=== PATIENT | female | born 1970 | race Caucasian/White ===

== ENCOUNTER 2020-03-02 14:21 | Outpatient (REF) | payer MEDICAID, SELFPAY ==
[2020-03-02 21:10] LABS: Abs Immature Grans 0.01 k/cumm (0.0-0.09); Absolute Basophil Count 0.03 k/cumm (0.0-0.2); Absolute Lymphocyte Count 1.54 k/cumm (1.2-3.4); Absolute Monocyte Count 0.62 k/cumm (0.11-0.7); Absolute Neutrophil Count 3.27 k/cumm (1.2-6.7); Basophils % 0.5; Eosinophils % 1.8; HCT 38.3 % (36.0-46.0); HGB 12.9 g/dL (12.0-15.5); Immature Grans % 0.2 %; Lymphocytes % 27.6; Mean Corp. HGB Concentration 33.7 g/dL (32.0-36.0); Mean Corpuscular Hemoglobin 28.5 pg (27.0-33.0); Mean Corpuscular Volume 84.5 fL (80-95); Monocytes % 11.1; Neutrophils % 58.8; Platelet Count 108 x1000/uL (130-400); RBC 4.53 m/cumm (4.00-5.20); RBC Distribution Width 13.7 % (11.7-14.6); White Blood Cell Count 5.57 k/cumm (4.4-10.8)
== END 2020-03-02 14:41 ==
LOC: NCHCN 14:21
PROVIDERS: Visit Provider Physician Assistant
DX: C85.80 Other specified types of non-Hodgkin lymphoma, unspecified site (principal); R59.1 Generalized enlarged lymph nodes
CPT/HCPCS: 85025

== ENCOUNTER 2020-03-05 03:51 | Outpatient (CLI) | payer MEDICAID, SELFPAY ==
--- NOTE | 2020-03-05 | DI.RAD_ITS ---
EXAM: XR HIP LT COMPLETE AP PELVIS CLINICAL HISTORY: LT HIP JOINT PAIN, M25.552 TECHNIQUE: COMPARISON: No exams were available for comparison FINDINGS: Three views were obtained. There are slight degenerative changes of both hips. No other significant bony or soft tissue abnormality seen. IMPRESSION:
--- NOTE | 2020-03-05 | DI.RAD_ITS ---
EXAM: XR FINGER RT MIDDLE CLINICAL HISTORY: RT FINGER PAIN, M79.644 TECHNIQUE: COMPARISON: No exams were available for comparison FINDINGS: Three views were obtained. Patient reportedly has a history of fracture approximately 4 weeks ago. There appears to be healing fracture of the base of the middle phalanx of the middle finger with some disruption/displacement of the articular surface of the bone. No prior films available for comparis on. No additional fracture seen. IMPRESSION:
== END 2020-03-05 04:11 ==
PROVIDERS: PCP Physician Assistant; Visit Provider Physician Assistant
DX: M79.644 Pain in right finger(s) (principal); M25.552 Pain in left hip
CPT/HCPCS: 73140; 73502

== ENCOUNTER 2020-03-16 11:46 | Outpatient (CLI) | payer MEDICAID, SELFPAY ==
--- NOTE | 2020-03-16 11:40 | DI.RAD_ITS ---
EXAM: XR FINGER RT MIDDLE INDICATION: fracture of middle phalanx. COMPARISON: CR XR FINGER RT MIDDLE from 03/05/2020 TECHNIQUE: 2D digital imaging was performed. FINDINGS: There has been no change in the alignment of the intra-articular fracture at the base of the middle p halanx of the middle finger. Soft tissue swelling remains present. DATA REPOSITORY: RADIATION DOSE DELIVERED:
== END 2020-03-16 12:06 ==
PROVIDERS: PCP Physician Assistant; Referring Provider Physician Assistant; Visit Provider Physician Assistant
DX: S62.652A Nondisplaced fracture of middle phalanx of right middle finger, initial encounter for closed fracture (principal)
CPT/HCPCS: 73140

== ENCOUNTER 2020-03-26 10:12 | Outpatient (REF) | payer MEDICAID, SELFPAY ==
[2020-03-26 16:59] LABS: HCT 38.4 % (36.0-46.0); HGB 12.4 g/dL (11.2-15.7); MCH 27.5 pg (27.0-33.0); MCHC 32.3 % (32.0-36.0); MCV 85.1 fL (80-95); MPV 10.4 fL (8.0-11.0); RBC 4.51 10^6/uL (3.93-5.22); RDW 13.2 % (11.7-14.6); RDW-SD 40.3 fL; WBC 4.61 10^3/uL (4.4-10.8)
[2020-03-26 18:07] LABS: Platelet Count 95 10^3/uL (130-400)
== END 2020-03-26 10:32 ==
LOC: NCHCN 10:12
PROVIDERS: PCP Physician Assistant; Visit Provider Physician Assistant
DX: R59.1 Generalized enlarged lymph nodes (principal)
CPT/HCPCS: 85027

== ENCOUNTER 2020-05-03 12:47 | Outpatient (REF) | payer MEDICAID, SELFPAY ==
[2020-05-03 18:54] LABS: HCT 35.3 % (36.0-46.0); HGB 11.1 g/dL (11.2-15.7); MCH 26.8 pg (27.0-33.0); MCHC 31.4 % (32.0-36.0); MCV 85.3 fL (80-95); MPV 10.9 fL (8.0-11.0); Platelet Count 113 10^3/uL (130-400); RBC 4.14 10^6/uL (3.93-5.22); RDW 14.1 % (11.7-14.6); RDW-SD 43.8 fL; WBC 4.49 10^3/uL (4.4-10.8)
[2020-05-03 19:50] LABS: Anion Gap 9.1 mmol/L (3-11); BUN 8 mg/dL (7-18); CO2 26.9 mmol/L (21.0-32.0); CREATININE 0.69 mg/dL (0.55-1.02); Calcium 8.5 mg/dL (8.5-10.1); Calculated LDL 137 mg/dL (<100); Chloride 104 mmol/L (98-107); Cholesterol 179 mg/dL (<200); Glucose 96 mg/dL (74-106); HDL Cholesterol 17 mg/dL (40-60); Potassium 4.1 mmol/L (3.5-5.1); Sodium 140 mmol/L (136-145); Triglyceride 126 mg/dL (<150)
== END 2020-05-03 13:07 ==
LOC: NCHCN 12:47
PROVIDERS: PCP Physician Assistant; Visit Provider Physician Assistant
DX: E11.9 Type 2 diabetes mellitus without complications (principal); D69.6 Thrombocytopenia, unspecified
CPT/HCPCS: 80048; 80061; 85027; 83036

== ENCOUNTER 2020-05-12 01:53 | Outpatient (CLI) | payer MEDICAID, SELFPAY ==
[2020-05-12 11:53] LABS: Abs Immature Grans 0.01 10^3/uL (0.0-0.06); Absolute Basophil Count 0.03 10^3/uL (0.0-0.2); Absolute Eosinophil Count 0.07 10^3/uL (0.0-0.7); Absolute Lymphocyte Count 1.71 10^3/uL (1.2-3.4); Absolute Monocyte Count 0.43 10^3/uL (0.1-0.8); Absolute Neutrophil Count 2.45 10^3/uL (1.2-6.7); Basophils % 0.6; Eosinophils % 1.5; HCT 34.3 % (36.0-46.0); HGB 10.9 g/dL (11.2-15.7); Immature Grans % 0.2; Lymphocytes % 36.4; MCH 26.8 pg (27.0-33.0); MCHC 31.8 % (32.0-36.0); MCV 84.3 fL (80-95); MPV 10.5 fL (8.0-11.0); Monocytes % 9.1; Neutrophils % 52.2; Nucleated RBC 0 %; RBC 4.07 10^6/uL (3.93-5.22); RDW 14.6 % (11.7-14.6); RDW-SD 44.8 fL
[2020-05-12 12:06] LABS: ALT 14 U/L (14-59); AST 36 U/L (15-37); Albumin 3.1 g/dL (3.4-5.0); Alkaline Phosphatase 142 U/L (46-116); BUN 14 mg/dL (7-18); Bilirubin, Total 0.4 mg/dL (0.2-1.0); CREATININE 0.92 mg/dL (0.55-1.02); Calcium 8.8 mg/dL (8.5-10.1); Chloride 103 mmol/L (98-107); Glucose 156 mg/dL (74-106); LDH 576 U/L (81-234); Potassium 3.9 mmol/L (3.5-5.1); Sodium 138 mmol/L (136-145); Total Protein 6.8 g/dL (6.4-8.2)
[2020-05-12 12:12] LABS: Diff Comment PLT Morph Reviewed; Hypochromasia 1+; Platelet Count 93 10^3/uL (130-400); Polychromasia Present
== END 2020-05-12 02:13 ==
PROVIDERS: PCP Physician Assistant; Visit Provider Internal Medicine Hematology & Oncology
DX: C85.98 Non-Hodgkin lymphoma, unspecified, lymph nodes of multiple sites (principal)
CPT/HCPCS: 36415; 80053; 83615; 85025

== ENCOUNTER 2020-05-14 16:47 | Emergency (ER) | payer MEDICAID, SELFPAY ==
[2020-05-14 16:57] VITALS: BP 131/73; PULSE 89; RESP 16; TEMP 36.5; O2SAT 98
--- NOTE | 2020-05-14 17:00 | DI.CT_ITS ---
EXAM: CT ABDOMEN PELVIS W CLINICAL HISTORY: abdomen pain. TECHNIQUE: Imaging Protocol: Axial computed tomography images with coronal and sagittal reformatted images were created and reviewed CONTRAST MATERIAL: Intravenous: Omnipaque 350 Contrast volume:100 ml Oral: no COMPARISON: No exams were available for comparison FINDINGS: There is marked splenic enlargement, with cephalocaudad dimension of 25 cm . The liver is enlarged a t 22 cm. There is mild fatty infiltration. The patient is status post cholecystectomy. No focal li conchis lesions are seen. The kidneys and adrenals are unremarkable. There is mild fatty atrophy of the pancreas. There are numerous enlarged lymph nodes seen in the para-aortic region which are confluen t. There is a retro aortic left renal vein. There also are enlarged inguinal lymph nodes. There is a large right external iliac lymph node measuring 4.7 cm. There is bulky adenopathy at the celiac a xis. A small cardiophrenic node is seen. The bowel is unremarkable. The uterus, bladder and ovarie s are unremarkable. The lung bases are suboptimally evaluated due to mild motion and atelectasis. T here are nodules seen in the inferior right middle lobe, the larger measuring 1.5 cm, as well as a 5 millimeter nodule in the left lower lobe. Degenerative changes are seen in the spine. No lytic or b lastic lesions or fractures are seen. Impression: Markedly enlarged spleen as well as bulky adenopathy, highly suspicious for lymphoma. RADIATION DOSE DELIVERED: 1,371.73mGy.cm Total DLP DATA REPOSITORY: All CT scans at this facility are submitted to the National Radiology Data Registry (NRDR) Dose Index Registry (DIR) with the [employer] (ACR). RADIATION OPTIMIZATION: All CT scans at this facility use at least one of these dose optimization te chniques: automated exposure control; mA and/or kV adjustment per patient size (includes targeted exa ms where dose is matched to clinical indication); or iterative reconstruction.
[2020-05-14 17:20] LABS: Abs Immature Grans 0.03 10^3/uL (0.0-0.06); Absolute Basophil Count 0.02 10^3/uL (0.0-0.2); Absolute Eosinophil Count 0.15 10^3/uL (0.0-0.7); Absolute Lymphocyte Count 2.07 10^3/uL (1.2-3.4); Absolute Monocyte Count 0.63 10^3/uL (0.1-0.8); Absolute Neutrophil Count 2.36 10^3/uL (1.2-6.7); Basophils % 0.4; Eosinophils % 2.9; HCT 35.7 % (36.0-46.0); HGB 11.3 g/dL (11.2-15.7); Immature Grans % 0.6; Lymphocytes % 39.4; MCH 26.3 pg (27.0-33.0); MCHC 31.7 % (32.0-36.0); MCV 83.2 fL (80-95); MPV 9.8 fL (8.0-11.0); Neutrophils % 44.7; Nucleated RBC 0 %; Platelet Count 101 10^3/uL (130-400); RBC 4.29 10^6/uL (3.93-5.22); RDW 14.9 % (11.7-14.6); RDW-SD 45.1 fL; WBC 5.26 10^3/uL (4.4-10.8)
[2020-05-14 17:33] LABS: ALT 15 U/L (14-59); AST 34 U/L (15-37); Albumin 3.4 g/dL (3.4-5.0); Alkaline Phosphatase 115 U/L (46-116); BUN 9 mg/dL (7-18); Bilirubin, Total 0.7 mg/dL (0.2-1.0); CREATININE 0.89 mg/dL (0.55-1.02); Calcium 8.9 mg/dL (8.5-10.1); Chloride 102 mmol/L (98-107); Glucose 116 mg/dL (74-106); Lipase 30 U/L (73-393); Potassium 3.7 mmol/L (3.5-5.1); Sodium 139 mmol/L (136-145); Total Protein 7.2 g/dL (6.4-8.2)
--- NOTE | 2020-05-14 17:38 | ED.GENADUL_ITS ---
Discharge Plan Disposition Patient Disposition: HOME Condition: Fair Discharge Details Clinical Impression: Abdominal pain in female Primary Care Provider: David West ED Provider: Mishel Hassan Home Meds and New Rx's Prescriptions: Continued clonazepam 0.5 mg tablet 0.5 mg PO DAILY RF: 0 ibuprofen 800 mg tablet 800 mg PO Q8H RF: 0 metformin 500 mg tablet 500 mg PO BID RF: 0 Discharge Instructions Instructions: Abdominal Pain (ED) Additional Instructions: Drink at least 6 to 8 glasses of water daily to stay well-hydrated Continue usual medications as previously prescribed Keep all follow-up appointments as previously scheduled return here sooner for new or worsening symptoms Referrals: David West [Primary Care Provider] - (Keep scheduled follow-up appointments) Medical Decision Making Patient sent in for evaluation by oncology for abdominal pain in setting of splenomegaly. Routine abdominal labs and CT of the abdomen pelvis obtained there is no acute abdominal pelvic pathology identified other than findings of lymphoma with scattered 6 mm pulmonary nodules requiring follow-up in 3 months. Her labs are reviewed and unremarkable. She declines any medication for pain. She is being discharged to follow-up with outpatient team as previously scheduled Medical Records Medical records reviewed: Yes I reviewed the patient's medical records. Lab Data Lab results reviewed: Yes I reviewed the patient's lab results. Lab results narrative: Laboratory Tests Range/Units 05/14/20 05/14/20 17:15 17:15 WBC (4.4-10.8) 10^3/uL 5.26 RBC (3.93-5.22) 10^6/uL 4.29 Hgb (11.2-15.7) g/dL 11.3 Hct (36.0-46.0) % 35.7 L MCV (80-95) fL 83.2 MCH (27.0-33.0) pg 26.3 L MCHC (32.0-36.0) % 31.7 L RDW (11.7-14.6) % 14.9 H Plt Count (130-400) 10^3/uL 101 L MPV (8.0-11.0) fL 9.8 Immature Gran % 0.6 Neutrophils % 44.7 Lymphocytes % 39.4 Monocytes % 12.0 Eosinophils % 2.9 Basophils % 0.4 Nucleated RBC % % 0 Absolute Neutrophils (1.2-6.7) 10^3/uL 2.36 Absolute Lymphocytes (1.2-3.4) 10^3/uL 2.07 Absolute Monocytes (0.1-0.8) 10^3/uL 0.63 Absolute Eosinophils (0.0-0.7) 10^3/uL 0.15 Absolute Basophils (0.0-0.2) 10^3/uL 0.02 Sodium (136-145) mmol/L 139 Potassium (3.5-5.1) mmol/L 3.7 Chloride (98-107) mmol/L 102 Carbon Dioxide (21.0-32.0) mmol/L 24.0 Anion Gap (3-11) mmol/L 13.0 H BUN (7-18) mg/dL 9 Creatinine (0.55-1.02) mg/dL 0.89 Estimated GFR/1.73 m2 (mL/min/1.73m2) >= 60.00 Glucose (74-106) mg/dL 116 H Calcium (8.5-10.1) mg/dL 8.9 Total Bilirubin (0.2-1.0) mg/dL 0.7 AST (15-37) U/L 34 ALT (14-59) U/L 15 Alkaline Phosphatase (46-116) U/L 115 Total Protein (6.4-8.2) g/dL 7.2 Albumin (3.4-5.0) g/dL 3.4 Lipase (73-393) U/L 30 Labs: Laboratory Results - last 24 hr 05/14/20 05/14/20 05/14/20 17:15 17:15 17:30 WBC 5.26 RBC 4.29 Hgb 11.3 Hct 35.7 L MCV 83.2 MCH 26.3 L MCHC 31.7 L RDW 14.9 H Plt Count 101 L MPV 9.8 Immature Gran % 0.6 Neutrophils % 44.7 Lymphocytes % 39.4 Monocytes % 12.0 Eosinophils % 2.9 Basophils % 0.4 Nucleated RBC % 0 Absolute Neutrophils 2.36 Absolute Lymphocytes 2.07 Absolute Monocytes 0.63 Absolute Eosinophils 0.15 Absolute Basophils 0.02 Sodium 139 Potassium 3.7 Chloride 102 Carbon Dioxide 24.0 Anion Gap 13.0 H BUN 9 Creatinine 0.89 Estimated GFR/1.73 m2 >= 60.00 Glucose 116 H Calcium 8.9 Total Bilirubin 0.7 AST 34 ALT 15 Alkaline Phosphatase 115 Total Protein 7.2 Albumin 3.4 Lipase 30 Urine Color Yellow Urine Clarity Sl cloudy Urine pH 6.0 Ur Specific [place] 1.025 Urine Protein 100 H Urine Ketones Trace H Urine Blood Negative Urine Nitrite Negative Urine Bilirubin Small H Urine Urobilinogen 0.2 Ur Leukocyte Esterase Negative Urine RBC 0-2 Urine WBC 3-5 Ur Epithelial Cells Many Urine Crystals Many calcium oxalate Urine Bacteria Moderate Urine Casts Negative Urine Mucus Moderate Ur Culture Indicated? No/sq. contamination Urine Glucose Negative HPI General Mode of arrival: ambulatory . Date/Time Provider Initiated Documentation: 05/14/20 16:59 . Limitations to Documentation: no limitations . Information obtained by: patient . HPI Narrative: Patient sent in by oncology for evaluation of abdominal pain in the setting of lymphoma with known splenomegaly. No fevers nausea or vomiting. Has had pain for 2 weeks. States pain is somewhat improved at this time. She declines any pain medication Related Data Home Medications Medication Instructions Recorded Confirmed clonazepam 0.5 mg tablet 0.5 mg PO DAILY 03/15/20 05/14/20 ibuprofen 800 mg tablet 800 mg PO Q8H 03/15/20 05/14/20 metformin 500 mg tablet 500 mg PO BID 03/15/20 05/14/20 Allergies Allergy/AdvReac Type Severity Reaction Status Date / Time latex Allergy Unverified 05/14/20 17:02 Penicillins Allergy Verified 05/14/20 17:02 General Stated Complaint: Abd Prob SANDI: 2 Review of Systems All systems reviewed & are unremarkable except as noted in HPI and below ENT Ears, Nose, Mouth, and Throat: Denies dizziness and Denies odynophagia Gastrointestinal Gastrointestinal: Reports abdominal pain, Denies melena, Denies heartburn, Denies nausea and Denies odynophagia Genitourinary Genitourinary: Denies dysuria, Denies pelvic pain and Denies vaginal discharge Integumentary/Breasts Skin/Breast: Denies lesions and Denies rash Neurologic Neurologic: Denies dizziness [facility] Medical History (Updated 05/14/20 @ 18:30 by Mishel Hassan NP) Diabetes Fracture of middle phalanx of right middle finger (~02/01/20) Non-Hodgkin lymphoma Social History Smoking/Tobacco Use Status: Former Tobacco Use Alcohol Intake: never Drug use: Daily Substance use type: marijuana Exam Const General: cooperative, comfortable and ill appearing chronically Nutritional Appearance: obese Orientation: alert, awake and oriented x3 HENMT Head: normal to inspection, normocephalic and atraumatic Mouth: oral mucosae normal Resp Effort & Inspection: normal respiratory effort Auscultation: clear to auscultation bilaterally Cardio Rate: regular rate Rhythm: regular rhythm GI Inspection: obesity Palpation: soft Skin Lesions: no lesions Rashes: no rashes Neuro General: patient alert, patient awake and patient oriented x3 Cognition: normal cognition Speech: speech normal Course Vital Signs Vital signs: Vital Signs Pulse 89 05/14/20 16:57 Respiratory Rate 16 05/14/20 16:57 Blood Pressure 131/73 05/14/20 16:57 Pulse Oximetry 98 05/14/20 16:57 Pulse 89 05/14/20 16:57 Respiratory Rate 16 05/14/20 16:57 Respiratory Effort Non-Labored 05/14/20 16:57 Blood Pressure 131/73 05/14/20 16:57 Blood Pressure Position Sitting 05/14/20 16:57 Pulse Oximetry 98 05/14/20 16:57 Oxygen Delivery Method Room Air 05/14/20 16:57 Oxygen Flow Rate 0 05/14/20 16:57 Pain Level 10 05/14/20 16:57 Lab/Test Results Lab/Test Results: Laboratory Tests Range/Units 05/14/20 17:15 WBC (4.4-10.8) 10^3/uL 5.26 RBC (3.93-5.22) 10^6/uL 4.29 Hgb (11.2-15.7) g/dL 11.3 Hct (36.0-46.0) % 35.7 L MCV (80-95) fL 83.2 MCH (27.0-33.0) pg 26.3 L MCHC (32.0-36.0) % 31.7 L RDW (11.7-14.6) % 14.9 H Plt Count (130-400) 10^3/uL 101 L MPV (8.0-11.0) fL 9.8 Immature Gran % 0.6 Neutrophils % 44.7 Lymphocytes % 39.4 Monocytes % 12.0 Eosinophils % 2.9 Basophils % 0.4 Nucleated RBC % % 0 Absolute Neutrophils (1.2-6.7) 10^3/uL 2.36 Absolute Lymphocytes (1.2-3.4) 10^3/uL 2.07 Absolute Monocytes (0.1-0.8) 10^3/uL 0.63 Absolute Eosinophils (0.0-0.7) 10^3/uL 0.15 Absolute Basophils (0.0-0.2) 10^3/uL 0.02
[2020-05-14 17:43] LABS: Bilirubin Small (Negative); Blood Negative (Negative); Clarity Sl Cloudy (Clear); Glucose Negative (Negative); Ketones Trace mg/dL (Negative); Leukocyte Esterase Negative (Negative); Nitrite Negative (Negative); Specific Gravity 1.025 (1.005-1.025); Urobilinogen 0.2 EU/dL (Up TO 0.2)
[2020-05-14 17:53] LABS: Bacteria Moderate HPF (Negative); Crystals Many Calcium Oxalate HPF (Negative); Epithelial Cells Many HPF (Negative); Mucus Moderate (Negative); RBC 0-2 HPF (0-2)
[2020-05-14 17:54] LABS: C & S Indicated? No/Sq. Contamination; Casts Negative LPF (Negative)
[2020-05-14] MEDS: Omnipaque 350 MG/ML 100 ML BTL IJ (18:11)
[2020-05-14] MEDS: Normal Saline Flush 10 ML SYR IVP (18:12)
[2020-05-14] MEDS: Normal Saline - Diluent 50 ML VIAL IV (18:13)
--- NOTE | 2020-05-14 18:24 | DI.VRAD_ITS ---
PROCEDURE INFORMATION: Exam: CT Abdomen And Pelvis With Contrast Exam date and time: 05/14/2020 5:05 PM Age: 50 years old Clinical indication: Other: Abd pain TECHNIQUE: Imaging protocol: Computed tomography of the abdomen and pelvis with intravenous contrast. Contrast material: OMNIPAQUE 350; Contrast volume: 100 ml; Contrast route: INTRAVENOUS (IV); COMPARISON: CR XR HIP LT COMPLETE AP PELVIS 03/05/2020 10:57 AM FINDINGS: Lungs: There is linear atelectasis in the right lung base. Scattered sub 6 mm pulmonary nodules are appreciated. For example, a 5 mm nodule is seen in the left lower lobe on image 63 series 5. As another example, a 3 mm nodule is seen in the right lower lobe on image 103 series 5. Liver: There is marked enlargement of the liver. There is a diffuse decrease in hepatic parenchymal density, consistent with fatty infiltration. Gallbladder and bile ducts: Patient status post cholecystectomy. No biliary ductal dilation. Pancreas: There is diffuse, benign fatty infiltration of the pancreas. Spleen: There is marked nonspecific splenomegaly. Adrenals: Normal. No mass. Kidneys and ureters: Normal. No hydronephrosis. Stomach and bowel: Unremarkable. No obstruction. No mucosal thickening. Appendix: No evidence of appendicitis. Intraperitoneal space: There is trace free fluid in the pelvis. Vasculature: The vasculature demonstrates diffuse mild atherosclerotic calcification. Lymph nodes: There is bulky and confluent periportal adenopathy. There is bulky and confluent retroperitoneal adenopathy. There is bulky and enlarged bilateral iliac chain, pelvic sidewall, and inguinal adenopathy. There is right cardiophrenic angle adenopathy. Urinary bladder: Unremarkable as visualized. Reproductive: Unremarkable as visualized. Bones/joints: No acute skeletal pathology. Mild multilevel degenerative changes of the spine, as manifested by multilevel anterior osteophytes and multilevel decrease in intervertebral disc space. Soft tissues: There is a fat-containing umbilical hernia. IMPRESSION: 1. Findings are most in favor with lymphoma. 2. Scattered sub 6 mm pulmonary nodules are appreciated. Close follow-up in 3 months is recommended. 3. No acute abdominopelvic pathology is otherwise identified. Dictated and Authenticated by: Shaq Centeno MD. Ordering:YUMIKO Florentino MD
[2020-05-14 18:31] VITALS: BP 104/62; PULSE 79; RESP 18; TEMP 36.4; O2SAT 96
[2020-05-14 18:35] VITALS: BP 104/62; PULSE 79; RESP 18; TEMP 36.4; O2SAT 96
== END 2020-05-14 18:35 | disposition home or self-care (01) ==
PROVIDERS: Emergency Provider Nurse Practitioner Acute Care; PCP Physician Assistant
DX: R10.12 Left upper quadrant pain (principal); R16.2 Hepatomegaly with splenomegaly, not elsewhere classified; C85.90 Non-Hodgkin lymphoma, unspecified, unspecified site; E11.9 Type 2 diabetes mellitus without complications; Z79.84 Long term (current) use of oral hypoglycemic drugs
CPT/HCPCS: 36415; 80053; 83690; 99285; 74177; 81003; 81015; 85025; 99284; J3490

== ENCOUNTER 2020-05-20 02:30 | Outpatient (CLI) | payer MEDICAID, SELFPAY ==
--- NOTE | 2020-05-20 07:31 | DI.US_ITS ---
APPROVED REPORT EXAM: Comprehensive 2D, Doppler, and color-flow Echocardiogram Patient Location: Out-Patient Wheel Worker: Ally Thao RDCS (AE) Indications: Follicular lymphoma of lymph nodes Other Information Study Quality: Fair Conclusion Left Ventricle : The left ventricle is normal size. The left ventricular systolic function is normal. The left ventricular ejection fraction is within the normal range. There is normal left ventricular wall thickness. There is normal LV segmental wall motion. The left ventricular diastolic function is normal. LVEF is 53%. Average Global longitudinal strain is -15%. Right Ventricle : Right ventricle is not well visualized. Right ventricular systolic function could n ot be assessed. The RVSP is 30.3 mmHg. Atria : The left atrium size is normal. Right atrium is not well visualized. Valves: There are no hemodynamically significant valvular lesions. Great Vessels : The aortic root is normal in size. The ascending aorta is normal in size. Aortic arch is normal in caliber. IVC is normal in size and collapses >50% with inspiration. Please see remainder of study for further details. Wall motion Left Ventricle The left ventricle is normal size. The left ventricular systolic function is normal. The left ventric ular ejection fraction is within the normal range. There is normal left ventricular wall thickness. T here is normal LV segmental wall motion. The left ventricular diastolic function is normal. There is no ventricular septal defect visualized. LVEF is 53%. Average Global longitudinal strain is -15%. Right Ventricle Right ventricle is not well visualized. Right ventricular systolic function could not be assessed. Th e RVSP is 30.3 mmHg. Atria The left atrium size is normal. Right atrium is not well visualized. The interatrial septum is intact with no evidence for an atrial septal defect. Aortic Valve The aortic valve is normal in structure. Aortic valve is trileaflet. There is no aortic valvular sten osis. No aortic regurgitation is present. Mitral Valve The mitral valve is normal in structure. No evidence of mitral valve stenosis. Trace to mild mitral r egurgitation. Tricuspid Valve The tricuspid valve is normal in structure. There is no tricuspid valve stenosis. Trace tricuspid reg urgitation. Pulmonic Valve The pulmonary valve is normal in structure. There is no pulmonic valvular stenosis. Trace pulmonic re gurgitation. Great Vessels The aortic root is normal in size. The ascending aorta is normal in size. Aortic arch is normal in ca liber. IVC is normal in size and collapses >50% with inspiration. Pericardium There is no pericardial effusion. 2D Dimensions IVSD d PLAX 0.90 cm F: 0.6-1.0 LV Vol A2C d MOD 121.3 mL LVPW d PLAX 0.95 cm F: 0.6 - 1.0 LV Vol A4C d MOD 122.8 mL LVID d PLAX 4.40 cm F: 3.8 - 5.2 LA vol/ BSA A2C s A-L 29.1 mL/m2 LVDs 3.25 cm F: 2.2 - 3.5 LA vol/ BSA A4C s A-L 22.9 mL/m2 Ao Root d 2.56 cm F: 2.7 - 3.3 LA Vol/ BSA Biplane s A-L 26.5 mL/m2 RA Area A4C 11.59 cm2 LA Area A4C s MOD 16.46 cm2 RA Vol/ BSA A4C s A-L 12.4 mL/m2 LA Area A2C s MOD 19.09 cm2 Ao Asc Diam d 3.13 cm F: 2.3 - 3.1 LV EF A4C MOD 53.8 % LV EF Teichholz 51.2 % LV EF A2C MOD 52.2 % LVEF (Lee's) 52.84 % F: 54 - 74 LV EF Biplane MOD 52.8 % LV Volume 91.02 mL F: 46 - 106 SV 64.72 mL LV Volume Index 44.40 mL/m2 F: 29 - 61 SV Index 31.48 mL/m2 LV Vol Biplane MOD 122.5 mL FS 25.95 % M-Mode TAPSE 2.76 cm (M/F) >1.7 LV Diastology MV E' medial 0.093 (>0.07 m/s) E/A Ratio 1.3 LV E/e MED 9.90 (<14) MV E Vmax 0.92 (0.4-1.3 m/s) MV E' lateral 0.117 (>0.1 m/s) MV A Vmax 0.70 (0.4-1.3 m/s) LV E/e LAT 7.85 (<14) MV E/A Ratio 1.28 MV E/E' medial 9.93 MV E/E' lateral 7.86 Aortic Valve LVOT Area 2.94 cm2 AoV Area Vmax 1.92 cm2 LVOT Vmax 1.18 m/s AoV Area/ BSA (Vmax) 0.94 cm2/m2 LVOT Mean Cornelius. 0.72 m/s DYLAN Mean Cornelius. 1.68 cm2 LVOT Peak Grad 5.6 mmHg DYLAN Mean Cornelius. Index 0.82 cm2/m2 LVOT Mean Grad 2.5 mmHg LVOT VTI 0.255 m LVOT Diam s 1.90 cm AoV Vmax 1.81 m/s Velocity Ratio 0.65 AoV Mean Cornelius. 1.25 m/s AoV Peak Grad 13.1 mmHg LVOT SV 74.95 mL AoV Mean Grad 7.2 mmHg AoV VTI 0.343 m AoV Area VTI 2.19 cm2 AoV Area/ BSA (VTI) 1.06 cm/m2 Mitral Valve MV DT 195 (160-240 msec) MV PHT 56 msec MV Area PHT 3.90 cm2 Pulmonary Valve PV Vmax 0.98 (0.5-1.5 m/s) RVOT Peak Gr. 1.80 mmHg PV Peak Grad 3.8 mmHg RVOT Mean Gr. 1.15 mmHg PV Mean Grad 2.2 mmHg RVOT VTI 0.142 m PV VTI 0.174 m RVOT Vmax 0.67 m/s Tricuspid Valve TR Peak Grad 27.2 mmHg TR Vmax 2.61 m/s RA Pressure 3.00 mmHg RVSP (TR) 30.3 mmHg
== END 2020-05-20 02:50 ==
PROVIDERS: PCP Physician Assistant; Visit Provider Internal Medicine Hematology & Oncology
DX: C82.98 Follicular lymphoma, unspecified, lymph nodes of multiple sites (principal)
CPT/HCPCS: 93306

== ENCOUNTER 2020-06-16 11:00 | Outpatient (RCR) | payer MEDICAID, SELFPAY ==
[2020-06-01 12:55] LABS: Abs Immature Grans 0.02 10^3/uL (0.0-0.06); Absolute Basophil Count 0.03 10^3/uL (0.0-0.2); Absolute Eosinophil Count 0.07 10^3/uL (0.0-0.7); Absolute Lymphocyte Count 2.26 10^3/uL (1.2-3.4); Absolute Monocyte Count 0.68 10^3/uL (0.1-0.8); Absolute Neutrophil Count 1.95 10^3/uL (1.2-6.7); Basophils % 0.6; Eosinophils % 1.4; HCT 31.2 % (36.0-46.0); HGB 9.9 g/dL (11.2-15.7); Immature Grans % 0.4; Lymphocytes % 45.1; MCH 26.3 pg (27.0-33.0); MCHC 31.7 % (32.0-36.0); MCV 82.8 fL (80-95); MPV 9.9 fL (8.0-11.0); Monocytes % 13.6; Neutrophils % 38.9; Nucleated RBC 0 %; Platelet Count 103 10^3/uL (130-400); RBC 3.77 10^6/uL (3.93-5.22); RDW 15.3 % (11.7-14.6); RDW-SD 45.9 fL; WBC 5.01 10^3/uL (4.4-10.8)
[2020-06-01] MEDS: Normal Saline Flush 10 ML SYR IVP (12:56)
[2020-06-01] MEDS: Heparin 500 UNITS/5 ML SYRINGE IV (12:57)
[2020-06-01 13:02] LABS: ALT 15 U/L (14-59); AST 39 U/L (15-37); Albumin 3.1 g/dL (3.4-5.0); Alkaline Phosphatase 109 U/L (46-116); Anion Gap 7.5 mmol/L (3-11); BUN 8 mg/dL (7-18); Bilirubin, Total 0.6 mg/dL (0.2-1.0); CO2 28.5 mmol/L (21.0-32.0); CREATININE 0.81 mg/dL (0.55-1.02); Calcium 9.8 mg/dL (8.5-10.1); Chloride 102 mmol/L (98-107); Glucose 94 mg/dL (74-106); LDH 504 U/L (81-234); Sodium 138 mmol/L (136-145); Total Protein 6.8 g/dL (6.4-8.2)
[2020-06-02] MEDS: Normal Saline Flush 10 ML SYR IVP (09:00)
[2020-06-03 09:23] LABS: HBs Antibody, Quant <3.1 mIU/mL (See Note); Hepatitis B Surface Ab Negative (See Note)
[2020-06-03 09:32] LABS: Hepatitis B Surface Ag Negative (Negative)
[2020-06-03 10:09] LABS: Hepatitis C Ab w Rflx HCV PCR Negative (Negative)
[2020-06-03 10:19] LABS: Hep B Core Antibody Negative (Negative)
[2020-06-03 10:22] LABS: HIV-1/2 Ag & Ab Screen Negative (Negative)
[2020-06-16 11:03] LABS: Absolute Basophil Count 0.02 10^3/uL (0.0-0.2); Absolute Eosinophil Count 0.12 10^3/uL (0.0-0.7); Absolute Lymphocyte Count 1.05 10^3/uL (1.2-3.4); Absolute Neutrophil Count 1.29 10^3/uL (1.2-6.7); Basophils % 0.7; Eosinophils % 4.2; HCT 29.3 % (36.0-46.0); HGB 9.2 g/dL (11.2-15.7); Lymphocytes % 36.5; MCH 26.9 pg (27.0-33.0); MCHC 31.4 % (32.0-36.0); MCV 85.7 fL (80-95); MPV 10.1 fL (8.0-11.0); Monocytes % 13.9; Neutrophils % 44.7; Nucleated RBC 0 %; RBC 3.42 10^6/uL (3.93-5.22); RDW 18.1 % (11.7-14.6); RDW-SD 55.8 fL; WBC 2.88 10^3/uL (4.4-10.8)
[2020-06-16] MEDS: Normal Saline Flush 10 ML SYR IVP (11:13)
[2020-06-16] MEDS: Heparin 500 UNITS/5 ML SYRINGE IV (11:13)
[2020-06-16 11:15] LABS: ALT 15 U/L (14-59); AST 18 U/L (15-37); Albumin 3.5 g/dL (3.4-5.0); Alkaline Phosphatase 152 U/L (46-116); Anion Gap 9.1 mmol/L (3-11); BUN 13 mg/dL (7-18); Bilirubin, Total 0.4 mg/dL (0.2-1.0); CO2 25.9 mmol/L (21.0-32.0); CREATININE 0.69 mg/dL (0.55-1.02); Calcium 9.1 mg/dL (8.5-10.1); Chloride 103 mmol/L (98-107); Glucose 150 mg/dL (74-106); LDH 237 U/L (81-234); Sodium 138 mmol/L (136-145); Total Protein 6.7 g/dL (6.4-8.2)
[2020-06-16 11:23] LABS: Diff Comment Diff Reviewed; Platelet Count 94 10^3/uL (130-400); Poikilocytes 1+
== END 2020-06-19 23:59 | disposition home or self-care (01) ==
LOC: INF 11:00
PROVIDERS: PCP Physician Assistant; Visit Provider Internal Medicine Hematology & Oncology
DX: Z45.2 Encounter for adjustment and management of vascular access device (principal); C85.90 Non-Hodgkin lymphoma, unspecified, unspecified site
CPT/HCPCS: 36591; 80053; 86704; 86706; 86803; 87340; 87389; 83615; 85025

== ENCOUNTER 2020-07-19 02:10 | Outpatient (RCR) | payer MEDICAID, SELFPAY ==
[2020-06-30] MEDS: Normal Saline Flush 10 ML SYR IVP (08:23)
[2020-06-30 08:36] LABS: Abs Immature Grans 0.01 10^3/uL (0.0-0.06); Absolute Basophil Count 0.01 10^3/uL (0.0-0.2); Absolute Lymphocyte Count 0.85 10^3/uL (1.2-3.4); Absolute Monocyte Count 0.31 10^3/uL (0.1-0.8); Absolute Neutrophil Count 1.82 10^3/uL (1.2-6.7); Basophils % 0.3; Eosinophils % 3.2; HCT 31.5 % (36.0-46.0); HGB 10.3 g/dL (11.2-15.7); Immature Grans % 0.3; Lymphocytes % 27.4; MCH 28.5 pg (27.0-33.0); MCHC 32.7 % (32.0-36.0); MPV 9.8 fL (8.0-11.0); Neutrophils % 58.8; Nucleated RBC 0 %; RBC 3.62 10^6/uL (3.93-5.22); RDW 17.9 % (11.7-14.6); RDW-SD 57.8 fL
[2020-06-30 08:47] LABS: ALT 18 U/L (14-59); AST 19 U/L (15-37); Albumin 3.7 g/dL (3.4-5.0); Alkaline Phosphatase 118 U/L (46-116); Anion Gap 8.9 mmol/L (3-11); BUN 13 mg/dL (7-18); Bilirubin, Total 0.4 mg/dL (0.2-1.0); CO2 26.1 mmol/L (21.0-32.0); CREATININE 0.68 mg/dL (0.55-1.02); Calcium 8.6 mg/dL (8.5-10.1); Chloride 106 mmol/L (98-107); Glucose 153 mg/dL (74-106); LDH 177 U/L (81-234); Potassium 3.9 mmol/L (3.5-5.1); Sodium 141 mmol/L (136-145); Total Protein 6.6 g/dL (6.4-8.2)
[2020-06-30 09:00] LABS: Diff Comment Diff Reviewed; Platelet Count 69 10^3/uL (130-400)
[2020-06-30 09:01] LABS: RBC Morphology Normal
[2020-07-05] MEDS: Normal Saline Flush 10 ML SYR IVP (10:45)
[2020-07-05] MEDS: Heparin 500 UNITS/5 ML SYRINGE IV (10:46)
[2020-07-05 10:59] LABS: Abs Immature Grans 0.01 10^3/uL (0.0-0.06); Absolute Basophil Count 0.02 10^3/uL (0.0-0.2); Absolute Eosinophil Count 0.08 10^3/uL (0.0-0.7); Absolute Lymphocyte Count 0.96 10^3/uL (1.2-3.4); Absolute Monocyte Count 0.27 10^3/uL (0.1-0.8); Absolute Neutrophil Count 2.02 10^3/uL (1.2-6.7); Basophils % 0.6; Eosinophils % 2.4; HCT 30.9 % (36.0-46.0); HGB 10.1 g/dL (11.2-15.7); Immature Grans % 0.3; Lymphocytes % 28.6; MCH 28.4 pg (27.0-33.0); MCHC 32.7 % (32.0-36.0); MCV 86.8 fL (80-95); MPV 10.4 fL (8.0-11.0); Neutrophils % 60.1; Nucleated RBC 0 %; RBC 3.56 10^6/uL (3.93-5.22); RDW 16.9 % (11.7-14.6); RDW-SD 53.8 fL; WBC 3.36 10^3/uL (4.4-10.8)
[2020-07-05 11:13] LABS: Diff Comment PLT Morph Reviewed; Hypochromasia 1+; Platelet Count 81 10^3/uL (130-400)
[2020-07-12 12:56] LABS: Abs Immature Grans 0.01 10^3/uL (0.0-0.06); Absolute Basophil Count 0.01 10^3/uL (0.0-0.2); Absolute Eosinophil Count 0.06 10^3/uL (0.0-0.7); Absolute Lymphocyte Count 1.07 10^3/uL (1.2-3.4); Absolute Monocyte Count 0.41 10^3/uL (0.1-0.8); Basophils % 0.3; Eosinophils % 1.6; HCT 32.9 % (36.0-46.0); HGB 10.8 g/dL (11.2-15.7); Immature Grans % 0.3; Lymphocytes % 27.9; MCH 28.3 pg (27.0-33.0); MCHC 32.8 % (32.0-36.0); MCV 86.4 fL (80-95); MPV 9.1 fL (8.0-11.0); Monocytes % 10.7; Neutrophils % 59.2; Nucleated RBC 0 %; Platelet Count 106 10^3/uL (130-400); RBC 3.81 10^6/uL (3.93-5.22); RDW 16.2 % (11.7-14.6); RDW-SD 51.5 fL; WBC 3.84 10^3/uL (4.4-10.8)
[2020-07-12 13:01] LABS: Absolute Neutrophil Count 2.27 10^3/uL (1.2-6.7)
[2020-07-12] MEDS: Normal Saline Flush 10 ML SYR IVP (14:05)
[2020-07-12] MEDS: Heparin 500 UNITS/5 ML SYRINGE IV (14:05)
== END 2020-07-19 23:59 | disposition home or self-care (01) ==
LOC: INF 02:10
PROVIDERS: PCP Physician Assistant; Visit Provider Internal Medicine Hematology & Oncology
DX: C85.98 Non-Hodgkin lymphoma, unspecified, lymph nodes of multiple sites (principal); Z45.2 Encounter for adjustment and management of vascular access device
CPT/HCPCS: 36591; 80053; 83615; 85025

== ENCOUNTER 2020-08-16 12:00 | Outpatient (RCR) | payer MEDICAID, SELFPAY ==
[2020-07-26 12:40] LABS: Abs Immature Grans 0.01 10^3/uL (0.0-0.06); Absolute Basophil Count 0.02 10^3/uL (0.0-0.2); Absolute Eosinophil Count 0.06 10^3/uL (0.0-0.7); Absolute Lymphocyte Count 1.37 10^3/uL (1.2-3.4); Absolute Monocyte Count 0.45 10^3/uL (0.1-0.8); Absolute Neutrophil Count 2.46 10^3/uL (1.2-6.7); Basophils % 0.5; Eosinophils % 1.4; HGB 11.5 g/dL (11.2-15.7); Immature Grans % 0.2; Lymphocytes % 31.4; MCHC 32.9 % (32.0-36.0); MCV 85.4 fL (80-95); MPV 9.7 fL (8.0-11.0); Monocytes % 10.3; Neutrophils % 56.2; Nucleated RBC 0 %; Platelet Count 111 10^3/uL (130-400); RDW 14.9 % (11.7-14.6); RDW-SD 46.6 fL; WBC 4.37 10^3/uL (4.4-10.8)
[2020-07-26] MEDS: Heparin 500 UNITS/5 ML SYRINGE IV (13:08)
[2020-07-26] MEDS: Normal Saline Flush 10 ML SYR IVP (13:08)
[2020-08-09 12:25] LABS: Abs Immature Grans 0.02 10^3/uL (0.0-0.06); Absolute Basophil Count 0.03 10^3/uL (0.0-0.2); Absolute Eosinophil Count 0.11 10^3/uL (0.0-0.7); Absolute Lymphocyte Count 1.27 10^3/uL (1.2-3.4); Absolute Monocyte Count 0.54 10^3/uL (0.1-0.8); Absolute Neutrophil Count 2.36 10^3/uL (1.2-6.7); Basophils % 0.7; Eosinophils % 2.5; HCT 35.2 % (36.0-46.0); HGB 11.7 g/dL (11.2-15.7); Immature Grans % 0.5; Lymphocytes % 29.3; MCH 27.9 pg (27.0-33.0); MCHC 33.2 % (32.0-36.0); MPV 10.5 fL (8.0-11.0); Monocytes % 12.5; Neutrophils % 54.5; Nucleated RBC 0 %; RBC 4.19 10^6/uL (3.93-5.22); WBC 4.33 10^3/uL (4.4-10.8)
[2020-08-09] MEDS: Normal Saline Flush 10 ML SYR IVP (12:27)
[2020-08-09] MEDS: Heparin 500 UNITS/5 ML SYRINGE IV (12:28)
[2020-08-09 12:42] LABS: ALT 26 U/L (14-59); AST 26 U/L (15-37); Albumin 3.8 g/dL (3.4-5.0); Alkaline Phosphatase 125 U/L (46-116); Anion Gap 9.2 mmol/L (3-11); BUN 14 mg/dL (7-18); Bilirubin, Total 0.5 mg/dL (0.2-1.0); CO2 26.8 mmol/L (21.0-32.0); CREATININE 0.74 mg/dL (0.55-1.02); Chloride 103 mmol/L (98-107); Glucose 106 mg/dL (74-106); LDH 251 U/L (81-234); Sodium 139 mmol/L (136-145)
[2020-08-09 12:43] LABS: Diff Comment Diff Reviewed; Platelet Count 86 10^3/uL (130-400); Poikilocytes 1+
[2020-08-16] MEDS: Heparin 500 UNITS/5 ML SYRINGE IV (12:05)
[2020-08-16] MEDS: Normal Saline Flush 10 ML SYR IVP (12:05)
[2020-08-16 12:08] LABS: Abs Immature Grans 0.01 10^3/uL (0.0-0.06); Absolute Basophil Count 0.03 10^3/uL (0.0-0.2); Absolute Monocyte Count 0.64 10^3/uL (0.1-0.8); Absolute Neutrophil Count 3.24 10^3/uL (1.2-6.7); Basophils % 0.5; Eosinophils % 1.8; HCT 36.2 % (36.0-46.0); Immature Grans % 0.2; Lymphocytes % 27.2; MCH 27.7 pg (27.0-33.0); MCHC 33.1 % (32.0-36.0); MCV 83.6 fL (80-95); MPV 10.6 fL (8.0-11.0); Monocytes % 11.6; Neutrophils % 58.7; Nucleated RBC 0 %; RBC 4.33 10^6/uL (3.93-5.22); RDW 13.6 % (11.7-14.6); RDW-SD 41.7 fL; WBC 5.52 10^3/uL (4.4-10.8)
[2020-08-16 12:37] LABS: Platelet Count 84 10^3/uL (130-400)
[2020-08-16 12:38] LABS: ALT 26 U/L (14-59); AST 38 U/L (15-37); Albumin 3.9 g/dL (3.4-5.0); Alkaline Phosphatase 131 U/L (46-116); Anion Gap 8.8 mmol/L (3-11); BUN 12 mg/dL (7-18); Bilirubin, Total 0.6 mg/dL (0.2-1.0); CO2 26.2 mmol/L (21.0-32.0); CREATININE 0.76 mg/dL (0.55-1.02); Calcium 9.3 mg/dL (8.5-10.1); Chloride 104 mmol/L (98-107); Glucose 87 mg/dL (74-106); LDH 300 U/L (81-234); Potassium 4.1 mmol/L (3.5-5.1); Sodium 139 mmol/L (136-145); Total Protein 7.2 g/dL (6.4-8.2)
== END 2020-08-19 23:59 | disposition home or self-care (01) ==
LOC: INF 12:00
PROVIDERS: PCP Physician Assistant; Visit Provider Internal Medicine Hematology & Oncology
DX: C85.98 Non-Hodgkin lymphoma, unspecified, lymph nodes of multiple sites (principal); Z45.2 Encounter for adjustment and management of vascular access device
CPT/HCPCS: 36591; 80053; 83615; 85025

== ENCOUNTER 2020-08-25 08:54 | Emergency (ER) | payer MEDICAID, SELFPAY ==
[2020-08-25 08:58] VITALS: BP 126/77; PULSE 98; RESP 16; TEMP 36.2; O2SAT 99
--- NOTE | 2020-08-25 09:00 | DI.CT_ITS ---
EXAM: CT CHEST/ABD/PEL W CLINICAL HISTORY: Hx of Lymphoma, Left side abd pain. TECHNIQUE: Imaging Protocol: Axial computed tomography images with coronal and sagittal reformatted images were created and reviewed CONTRAST MATERIAL: Intravenous: Omnipaque 350 Contrast volume:100 ml Oral: None COMPARISON: CT CT ABDOMEN PELVIS W from 05/14/[address] ABDOMEN PELVIS W from 05/14/2020 FINDINGS: CHEST: LUNGS: There is a large mass in the right hilar-perihilar region, suspicious for malignancy and adeno everardo. This measures approximately 6 x 5 centimetres. This extends into the subcarinal region. The re is also a 5 x 4 3 millimeter nodule in the right upper lobe and another 5 x 3 millimeter nodule in the right lower lobe. Also another 5 x 3 millimeter nodule in the right middle lobe. Also mild ple ural based infiltrate in the medial basal segment of the right lower lobe. There is no pleural effus ion. The opposite-left lung reveals a round the of 5 x 4 millimeter noncalcified nodule in the left lower lobe. No pleural effusion. Trachea unremarkable. Left mainstem bronchus unremarkable. The d istal right mainstem bronchus is extrinsically narrowed by the large mass. MEDIASTINUM: Large bulky right hilar mass with contiguous adenopathy extending into the mediastinum s ubcarinal region. Smaller lymph nodes are noted in the left hilum. There is no cysts of said there is slightly enlarged lymph nodes in the anterior mediastinal fat. Thyroid not completely included in the field of view. CARDIAC: Heart size is normal. There is no pericardial effusion.Caliber of the thoracic aorta is wit hin normal limits. OSSEOUS: No significant osseous lesions.. ABDOMEN: There is no ascites. LIVER: Liver is enlarged and hypodense implying steatosis but there are no obvious discrete focal hep atic lesions evident. GALLBLADDER/BILIARY: The gallbladder is again noted to be surgically absent. CBD is not dilated. PANCREAS: There is abundant adenopathy around the pancreas again noted. Largest nodule this level is again noted projected over the pancreatic head-neck just anterior to the common hepatic artery. Thi s measures 3.3 x 3.8 centimetres. SPLEEN: Prominent splenomegaly is again noted. Splenic and portal veins are patent. ADRENALS: There are no significant adrenal masses. KIDNEYS: No calculi nor hydronephrosis. No solid renal masses. No cysts evident. ABDOMINAL AORTA: Abdominal aorta is not enlarged. Bulky para-aortic lymphadenopathy is again noted. ABDOMINAL WALL/GI: No evidence of significant anterior abdominal wall hernia. No bowel obstruction. PELVIS: LYMPH NODES: There is intrapelvic adenopathy again noted. The largest lymph node in the right side o f the pelvis appears to have decreased in size but there are others slightly at their other quite pro minent lymph nodes also noted, the largest measuring 3.7 by 2.9 centimetres. GI: No evidence of appendicitis.No evidence of sigmoid diverticulitis. URINARY BLADDER: No calculi nor masses evident REPRODUCTIVE: No abnormality evident in the uterus. No ovarian masses evident. Prominent right-side d density is consistent with adenopathy. OSSEOUS: No significant osseous lesions. IMPRESSION: 1. There is a large ominous right hilar-perihilar masses described above with extension into the medi astinum and/subcarinal region and extrinsic compression of the bronchus. Highly suspicious for malig adrien/adenopathy. Smaller noncalcified nodules are also noted in both lung ibrahim. Small lymph node s in left hilum. No pleural effusions. 2. Prominent splenomegaly again noted as well as prominent lymphadenopathy in the abdomen and pelvis. Also inguinal adenopathy. Most probably lymphoma. However, the finding in the right hilum is some what peculiar given its asymmetry and location and there may be 2 separate neoplastic simultaneous di sease here including lymphoma and right hilar-hilar malignancy. No pleural effusions. 3. There are no lytic osseous lesions identified. Findings discussed with emergency room provider. RADIATION DOSE DELIVERED: 2,375.33mGy.cm Total DLP DATA REPOSITORY: All CT scans at this facility are submitted to the National Radiology Data Registry (NRDR) Dose Index Registry (DIR) with the [employer] ([employer]). RADIATION OPTIMIZATION: All CT scans at this facility use at least one of these dose optimization te chniques: automated exposure control; mA and/or kV adjustment per patient size (includes targeted exa ms where dose is matched to clinical indication); or iterative reconstruction.
--- NOTE | 2020-08-25 09:12 | ED.GENADUL_ITS ---
Discharge Plan Disposition Patient Disposition: HOME Condition: Stable Discharge Details Clinical Impression: Splenomegaly, Mass of right lung Primary Care Provider: David West ED Provider: Altagracia Augustin Home Meds and New Rx's Prescriptions: New morphine 10 mg capsule,extend.release pellets 10 mg PO DAILY PRN (Reason: pain (scale score 4-6)) Qty: 7 RF: 0 No Action clonazepam 0.5 mg tablet 0.5 mg PO DAILY PRNRF: 0 ibuprofen 800 mg tablet 800 mg PO Q8H RF: 0 metformin 500 mg tablet 500 mg PO BID RF: 0 Discharge Instructions Instructions: Non-Hodgkin Lymphoma (ED), Abdominal Pain (ED) Additional Instructions: Keep your follow-up appointment next week at the cancer center as previously scheduled. Take 1 morphine tablet a day either before bedtime or as needed for pain. Return to the ED for any worsening pain, fever or any concerns. I did discuss the CT results with Dr. Pappas at the [facility] center. Referrals: David West [Primary Care Provider] - Medical Decision Making At this time work-up ordered including CBC, CMP, lipase, urinalysis. CT chest abdomen pelvis with contrast ordered to evaluate for disease progression. Discussed pain management with patient she declines any pain management at this time. Platelets are 76, glucose is 110, AST is 44, alk phos is 138 urinalysis shows trace leukocyte, with squamous contamination. EXAM: CT CHEST/ABD/PEL W CLINICAL HISTORY: Hx of Lymphoma, Left side abd pain. TECHNIQUE: Imaging Protocol: Axial computed tomography images with coronal and sagittal reformatted images were created and reviewed CONTRAST MATERIAL: Intravenous: Omnipaque 350 Contrast volume:100 ml Oral: None COMPARISON: CT CT ABDOMEN PELVIS W from 05/14/[address] ABDOMEN PELVIS W from 05/14/2020 FINDINGS: CHEST: LUNGS: There is a large mass in the right hilar-perihilar region, suspicious for malignancy and adenopathy. This measures approximately 6 x 5 centimetres. This extends into the subcarinal region. There is also a 5 x 4 3 millimeter nodule in the right upper lobe and another 5 x 3 millimeter nodule in the right lower lobe. Also another 5 x 3 millimeter nodule in the right middle lobe. Also mild pleural based infiltrate in the medial basal segment of the right lower lobe. There is no pleural effusion. The opposite-left lung reveals a round the of 5 x 4 millimeter noncalcified nodule in the left lower lobe. No pleural effusion. Trachea unremarkable. Left mainstem bronchus unremarkable. The distal right mainstem bronchus is extrinsically narrowed by the large mass. MEDIASTINUM: Large bulky right hilar mass with contiguous adenopathy extending into the mediastinum subcarinal region. Smaller lymph nodes are noted in the left hilum. There is no cysts of said there is slightly enlarged lymph nodes in the anterior mediastinal fat. Thyroid not completely included in the field of view. CARDIAC: Heart size is normal. There is no pericardial effusion.Caliber of the thoracic aorta is within normal limits. OSSEOUS: No significant osseous lesions.. ABDOMEN: There is no ascites. LIVER: Liver is enlarged and hypodense implying steatosis but there are no obvi ous discrete focal hepatic lesions evident. GALLBLADDER/BILIARY: The gallbladder is again noted to be surgically absent. CBD is not dilated. PANCREAS: There is abundant adenopathy around the pancreas again noted. Largest nodule this level is again noted projected over the pancreatic head-neck just anterior to the common hepatic artery. This measures 3.3 x 3.8 centimetres. SPLEEN: Prominent splenomegaly is again noted. Splenic and portal veins are patent. ADRENALS: There are no significant adrenal masses. KIDNEYS: No calculi nor hydronephrosis. No solid renal masses. No cysts evident. ABDOMINAL AORTA: Abdominal aorta is not enlarged. Bulky para-aortic lymphadenopathy is again noted. ABDOMINAL WALL/GI: No evidence of significant anterior abdominal wall hernia. No bowel obstruction. PELVIS: LYMPH NODES: There is intrapelvic adenopathy again noted. The largest lymph node in the right side of the pelvis appears to have decreased in size but there are others slightly at their other quite prominent lymph nodes also noted, the largest measuring 3.7 by 2.9 centimetres. GI: No evidence of appendicitis.No evidence of sigmoid diverticulitis. URINARY BLADDER: No calculi nor masses evident REPRODUCTIVE: No abnormality evident in the uterus. No ovarian masses evident. Prominent right-sided density is consistent with adenopathy. OSSEOUS: No significant osseous lesions. IMPRESSION: 1. There is a large ominous right hilar-perihilar masses described above with extension into the mediastinum and/subcarinal region and extrinsic compression of the bronchus. Highly suspicious for malignancy/adenopathy. Smaller noncalcified nodules are also noted in both lung ibrahim. Small lymph nodes in left hilum. No pleural effusions. 2. Prominent splenomegaly again noted as well as prominent lymphadenopathy in the abdomen and pelvis. Also inguinal adenopathy. Most probably lymphoma. However, the finding in the right hilum is somewhat peculiar given its asymmetry and location and there may be 2 separate neoplastic simultaneous disease here including lymphoma and right hilar-hilar malignancy. No pleural effusions. 3. There are no lytic osseous lesions identified. Discussed findings of CT with radiologist Dr. Claire. 1102: Call made to the [facility] to discuss CT results with patient's provider. 1107: Spoke with Dr. Yeung at [facility] regarding patient's CT results, discussed patient case in details and results, she recommends asking the radiologist to compare the measurements of thespleen, lymph nodes to the previous CT and getting the indicator sites. She recommends the patient can be discharged home she does have a appointment next week. 1110: Spoke with Dr. Claire to request an addendum with spleen measurements and with measurements he verbalizes understanding. Patient discharged with instructions to keep follow-up appointment next week, discussed strict return instructions. Patient was given 7 tablets of 10 mg of morphine tablet as needed pain. At the time of this dictation patient was hemodynamically stable alert and oriented. This text was generated using [employer] dictation system, please disregard any oddities of phrase or misspellings. HPI General Mode of arrival: ambulatory . Date/Time Provider Initiated Documentation: 08/25/20 08:55 . Limitations to Documentation: no limitations . Information obtained by: patient . HPI Narrative: 42-year-old female with past medical history of non-Hodgkin's lymphoma and diabetes sent to the ED via [facility] due to increasing left upper quadrant abdominal pain. She has been seen in the ER for abdominal pain with splenomegaly. She was due for chemo treatment today with did not receive treatment due to her pain. [facility] is requesting a CT chest abdomen pelvis to evaluate any progression of the disease. She states that she has had abdominal pain for approximately 1 week. Denies any nausea vomiting diarrhea or any other complaints. She does report enlarged cervical lymphadenopathy noted to the right metastatic to left posterior auricle. Related Data Home Medications Medication Instructions Recorded Confirmed clonazepam 0.5 mg tablet 0.5 mg PO DAILY PRN 03/15/20 08/25/20 ibuprofen 800 mg tablet 800 mg PO Q8H 03/15/20 08/25/20 metformin 500 mg tablet 500 mg PO BID 03/15/20 08/25/20 morphine 10 mg PO DAILY PRN #7 cap 08/25/20 Previous Rx's Medication Instructions Recorded morphine 10 mg PO DAILY PRN #7 cap 08/25/20 Allergies Allergy/AdvReac Type Severity Reaction Status Date / Time latex Allergy Unverified 05/14/20 17:02 Penicillins Allergy Verified 05/14/20 17:02 General Stated Complaint: Abd Prob SANDI: 3 Review of Systems Narrative: Constitutional: Negative for weight loss, alert and oriented, well groomed, normal body habitus, appears uncomfortable. HEENT: Denies trauma, headaches, blurry vision, nasal discharge, sore throat, trouble swallowing. Does have enlarged lymph nodes noted to the right and left neck. Chest: Denies chest pain, palpitations, irregular rhythm, hypertension. Respiratory: Denies Shortness of breath, cough, hemoptysis. GI: Denies nausea, vomiting, diarrhea, constipation. Positive left upper quadrant abdominal pain. : Denies dysuria, hematuria, flank pain, rectal bleeding. Neuro: Denies dizziness, blurry vision, weakness, syncope, headache or facial numbness. Hematologic: Denies easy bruising, intolerance to heat or cold, hair loss. [facility] Medical History Diabetes Fracture of middle phalanx of right middle finger (~02/01/20) Non-Hodgkin lymphoma Social History Smoking/Tobacco Use Status: Former Tobacco Use Smoking risk assessment performed?: Yes Alcohol Intake: never Drug use: Daily Substance use type: marijuana Details: edibles Do you feel safe at home: Yes Do you feel safe in your relationship?: Yes Exam Narrative Exam Narrative: Constitutional: Alert and oriented x3. Appears stated age. Normal body habitus. Head: Normocephalic, no trauma. Eyes: Pupils PERRLA, Red reflex noted, EOM's intact. Eyelids symmetrical without lesions, discharge, or swelling. ENT: Bilateral TM's WNL, External ear normal to inspection, no mastoid TTP, swelling, or erythema, Nasal turbinates WNL, no nasal discharge. Normal dentition, Posterior pharynx WNL, no exudate. Chest: RRR, Normal S1, S2, distal pulses intact. Resp: Lungs clear to auscultation bilaterally, no wheezes, rales, or rhonchi. Abdomen: Soft, nondistended tender to palpation in the left lateral quadrant. Musculoskeletal: Normal gait, 5/5 strength to all four extremities. Skin: No suspicious rashes or lesions. Capillary refill less than 2 sec. Neurologic: Cranial nerves II-XII intact. Alert and oriented x 3. DTR's intact. Hematologic/Lymphatic: No ecchymosis, no lymphadenopathy. Course Vital Signs Vital signs: Vital Signs Temperature 36.2 C L 08/25/20 08:58 Pulse 98 H 08/25/20 08:58 Respiratory Rate 16 08/25/20 08:58 Blood Pressure 126/77 08/25/20 08:58 Pulse Oximetry 99 08/25/20 08:58 Temperature 36.2 C L 08/25/20 08:58 Temperature Source Temporal Artery Scan 08/25/20 08:58 Pulse 98 H 08/25/20 08:58 Respiratory Rate 16 08/25/20 08:58 Respiratory Effort 08/25/20 09:09 Blood Pressure 126/77 08/25/20 08:58 Blood Pressure Position Sitting 08/25/20 08:58 Pulse Oximetry 99 08/25/20 08:58 Oxygen Delivery Method Room Air 08/25/20 08:58 Oxygen Flow Rate 0 08/25/20 08:58 Pain Level 10 08/25/20 08:58
[2020-08-25 09:35] LABS: Abs Immature Grans 0.02 10^3/uL (0.0-0.06); Absolute Basophil Count 0.02 10^3/uL (0.0-0.2); Absolute Lymphocyte Count 1.59 10^3/uL (1.2-3.4); Absolute Monocyte Count 0.58 10^3/uL (0.1-0.8); Basophils % 0.4; HCT 33.7 % (36.0-46.0); HGB 11.2 g/dL (11.2-15.7); Immature Grans % 0.4; Lymphocytes % 31.7; MCH 27.5 pg (27.0-33.0); MCHC 33.2 % (32.0-36.0); MCV 82.6 fL (80-95); MPV 9.2 fL (8.0-11.0); Monocytes % 11.6; Neutrophils % 53.9; Nucleated RBC 0 %; RBC 4.08 10^6/uL (3.93-5.22); RDW 13.5 % (11.7-14.6); RDW-SD 40.7 fL; WBC 5.01 10^3/uL (4.4-10.8)
[2020-08-25 09:37] LABS: Bilirubin Negative (Negative); Blood Negative (Negative); Clarity Clear (Clear); Glucose Negative (Negative); Ketones Negative (Negative); Leukocyte Esterase Trace (Negative); Nitrite Negative (Negative); Specific Gravity 1.025 (1.005-1.025); Urobilinogen 0.2 EU/dL (Up TO 0.2)
[2020-08-25 09:46] LABS: Bacteria Moderate HPF (Negative); C & S Indicated? No/Sq. Contamination; Casts Negative LPF (Negative); Crystals Negative HPF (Negative); Epithelial Cells Many HPF (Negative); Mucus Negative (Negative); RBC 0-2 HPF (0-2)
[2020-08-25 09:52] LABS: ALT 22 U/L (14-59); AST 44 U/L (15-37); Albumin 3.6 g/dL (3.4-5.0); Alkaline Phosphatase 138 U/L (46-116); Anion Gap 9.1 mmol/L (3-11); BUN 14 mg/dL (7-18); Bilirubin, Total 0.6 mg/dL (0.2-1.0); CO2 25.9 mmol/L (21.0-32.0); CREATININE 0.72 mg/dL (0.55-1.02); Calcium 9.2 mg/dL (8.5-10.1); Chloride 105 mmol/L (98-107); Glucose 110 mg/dL (74-106); Lipase 72 U/L (73-393); Magnesium 1.9 mg/dL (1.8-2.4); Potassium 3.8 mmol/L (3.5-5.1); Sodium 140 mmol/L (136-145); Total Protein 6.8 g/dL (6.4-8.2)
[2020-08-25 10:03] LABS: Diff Comment Diff Reviewed; Platelet Count 76 10^3/uL (130-400); RBC Morphology Normal
[2020-08-25 10:13] VITALS: BP 117/69; PULSE 93; RESP 16; TEMP 36.2; O2SAT 95
[2020-08-25] MEDS: Omnipaque 350 MG/ML 100 ML BTL IJ (10:13)
== END 2020-08-25 12:36 | disposition home or self-care (01) ==
PROVIDERS: Emergency Provider Registered Nurse Emergency; PCP Physician Assistant
DX: R16.1 Splenomegaly, not elsewhere classified (principal); R91.8 Other nonspecific abnormal finding of lung field; C85.90 Non-Hodgkin lymphoma, unspecified, unspecified site; Z79.899 Other long term (current) drug therapy; E11.9 Type 2 diabetes mellitus without complications; Z79.84 Long term (current) use of oral hypoglycemic drugs
CPT/HCPCS: 36591; 74177; 80053; 83690; 99285; 71260; 81003; 81015; 83735; 85025; J3490

== ENCOUNTER 2020-09-15 08:30 | Outpatient (RCR) | payer MEDICAID, SELFPAY ==
[2020-08-23] MEDS: Normal Saline Flush 10 ML SYR IVP (10:34)
[2020-08-23] MEDS: Heparin 500 UNITS/5 ML SYRINGE (10:34)
[2020-08-23 10:37] LABS: Abs Immature Grans 0.01 10^3/uL (0.0-0.06); Absolute Basophil Count 0.02 10^3/uL (0.0-0.2); Absolute Lymphocyte Count 1.67 10^3/uL (1.2-3.4); Absolute Monocyte Count 0.67 10^3/uL (0.1-0.8); Absolute Neutrophil Count 3.02 10^3/uL (1.2-6.7); Basophils % 0.4; Eosinophils % 1.8; HCT 35.9 % (36.0-46.0); HGB 11.8 g/dL (11.2-15.7); Immature Grans % 0.2; Lymphocytes % 30.4; MCH 27.7 pg (27.0-33.0); MCHC 32.9 % (32.0-36.0); MCV 84.3 fL (80-95); MPV 10.2 fL (8.0-11.0); Monocytes % 12.2; Nucleated RBC 0 %; RBC 4.26 10^6/uL (3.93-5.22); RDW 13.6 % (11.7-14.6); RDW-SD 41.5 fL; WBC 5.49 10^3/uL (4.4-10.8)
[2020-08-23 10:52] LABS: ALT 23 U/L (14-59); AST 44 U/L (15-37); Albumin 3.7 g/dL (3.4-5.0); Alkaline Phosphatase 147 U/L (46-116); Anion Gap 8.8 mmol/L (3-11); BUN 11 mg/dL (7-18); Bilirubin, Total 0.5 mg/dL (0.2-1.0); CO2 26.2 mmol/L (21.0-32.0); CREATININE 0.79 mg/dL (0.55-1.02); Calcium 9.2 mg/dL (8.5-10.1); Chloride 103 mmol/L (98-107); Glucose 138 mg/dL (74-106); LDH 329 U/L (81-234); Potassium 3.9 mmol/L (3.5-5.1); Sodium 138 mmol/L (136-145); Total Protein 6.8 g/dL (6.4-8.2)
[2020-08-23 10:53] LABS: Platelet Count 86 10^3/uL (130-400)
[2020-08-23 10:54] LABS: Diff Comment PLT Morph Reviewed; RBC Morphology Normal
[2020-09-01] MEDS: Normal Saline Flush 10 ML SYR IVP (09:12)
[2020-09-01 09:17] LABS: Abs Immature Grans 0.02 10^3/uL (0.0-0.06); Absolute Basophil Count 0.02 10^3/uL (0.0-0.2); Absolute Eosinophil Count 0.06 10^3/uL (0.0-0.7); Absolute Lymphocyte Count 1.63 10^3/uL (1.2-3.4); Absolute Monocyte Count 0.63 10^3/uL (0.1-0.8); Absolute Neutrophil Count 2.77 10^3/uL (1.2-6.7); Basophils % 0.4; Eosinophils % 1.2; HCT 33.3 % (36.0-46.0); Immature Grans % 0.4; Lymphocytes % 31.8; MCH 27.6 pg (27.0-33.0); MCV 83.5 fL (80-95); MPV 11.1 fL (8.0-11.0); Monocytes % 12.3; Neutrophils % 53.9; Nucleated RBC 0 %; RBC 3.99 10^6/uL (3.93-5.22); RDW 13.5 % (11.7-14.6); RDW-SD 40.7 fL; WBC 5.13 10^3/uL (4.4-10.8)
[2020-09-01 09:33] LABS: ALT 27 U/L (14-59); AST 62 U/L (15-37); Albumin 3.4 g/dL (3.4-5.0); Alkaline Phosphatase 176 U/L (46-116); Anion Gap 9.9 mmol/L (3-11); BUN 11 mg/dL (7-18); Bilirubin, Total 0.5 mg/dL (0.2-1.0); CO2 26.1 mmol/L (21.0-32.0); CREATININE 0.87 mg/dL (0.55-1.02); Calcium 8.8 mg/dL (8.5-10.1); Chloride 103 mmol/L (98-107); Glucose 155 mg/dL (74-106); LDH 490 U/L (81-234); Sodium 139 mmol/L (136-145); Total Protein 6.7 g/dL (6.4-8.2)
[2020-09-01 09:52] LABS: Diff Comment PLT Morph Reviewed; Platelet Count 78 10^3/uL (130-400); RBC Morphology Normal
[2020-09-15] MEDS: Normal Saline Flush 10 ML SYR IVP (14:41)
[2020-09-15] MEDS: Heparin 500 UNITS/5 ML SYRINGE (14:41)
[2020-09-15 14:51] LABS: Abs Immature Grans 0.02 10^3/uL (0.0-0.06); Absolute Basophil Count 0.02 10^3/uL (0.0-0.2); Absolute Eosinophil Count 0.03 10^3/uL (0.0-0.7); Absolute Lymphocyte Count 2.85 10^3/uL (1.2-3.4); Absolute Monocyte Count 0.57 10^3/uL (0.1-0.8); Absolute Neutrophil Count 2.18 10^3/uL (1.2-6.7); Basophils % 0.4; Eosinophils % 0.5; HCT 31.4 % (36.0-46.0); Immature Grans % 0.4; Lymphocytes % 50.3; MCHC 31.8 % (32.0-36.0); MCV 84.6 fL (80-95); MPV 10.5 fL (8.0-11.0); Monocytes % 10.1; Neutrophils % 38.3; Nucleated RBC 0 %; Platelet Count 81 10^3/uL (130-400); RBC 3.71 10^6/uL (3.93-5.22); RDW 14.8 % (11.7-14.6); RDW-SD 44.9 fL; WBC 5.67 10^3/uL (4.4-10.8)
[2020-09-15 14:59] LABS: ALT 21 U/L (14-59); AST 95 U/L (15-37); Albumin 3.1 g/dL (3.4-5.0); Alkaline Phosphatase 173 U/L (46-116); Anion Gap 12.3 mmol/L (3-11); BUN 10 mg/dL (7-18); Bilirubin, Total 0.6 mg/dL (0.2-1.0); CO2 24.7 mmol/L (21.0-32.0); CREATININE 1.07 mg/dL (0.55-1.02); Calcium 9.9 mg/dL (8.5-10.1); Chloride 100 mmol/L (98-107); Estimated GFR 54.73 (mL/min/1.73m2); Glucose 132 mg/dL (74-106); LDH 829 U/L (81-234); Potassium 4.1 mmol/L (3.5-5.1); Sodium 137 mmol/L (136-145); Total Protein 6.3 g/dL (6.4-8.2)
[2020-09-15 15:08] LABS: Diff Comment PLT Morph Reviewed; Hypochromasia 1+
[2020-09-15 15:09] LABS: Poikilocytes 1+; Polychromasia Present
== END 2020-09-19 23:59 | disposition home or self-care (01) ==
LOC: INF 08:30
PROVIDERS: PCP Physician Assistant; Visit Provider Internal Medicine Hematology & Oncology
DX: C85.98 Non-Hodgkin lymphoma, unspecified, lymph nodes of multiple sites (principal); Z45.2 Encounter for adjustment and management of vascular access device
CPT/HCPCS: 36591; 80053; 96523; 83615; 85025

== ENCOUNTER 2020-09-23 01:18 | Outpatient (CLI) | payer MEDICAID, SELFPAY ==
--- NOTE | 2020-09-23 | DI.US_ITS ---
EXAM: US EXTREMITY VENOUS BI CLINICAL HISTORY: LYMPHOMA,LLE SWELLING, ASSESS FOR DVT. TECHNIQUE: Bilateral lower extremity venous ultrasound performed using grayscale, color-flow, and sp ectral Doppler analysis. COMPARISON: No exams were available for comparison FINDINGS: The bilateral common femoral, femoral and popliteal veins demonstrate normal compressibility, augment ation, and color Doppler. The posterior tibial veins are patent. The saphenofemoral junctions are unr emarkable. There is no evidence of a Benitez's cyst. The soft tissues are unremarkable. There are enlar ged bilateral lymph nodes present. The largest is in the right inguinal region and measures 5 x 1.9 x 3.4 cm. The largest in the left inguinal region measures 4.1 x 0.4 x 3.4 cm. IMPRESSION: 1. Right: Negative for DVT 2. Left: Negative for DVT 3. Bilateral enlarged lymph nodes. The largest is on the right and measures 5 x 1.9 x 3.4 cm. The p atient has a known history of lymphoma. Please correlate clinically. DATA REPOSITORY:
== END 2020-09-23 01:19 | disposition home or self-care (01) ==
PROVIDERS: PCP Physician Assistant; Visit Provider Internal Medicine Hematology & Oncology
DX: R59.0 Localized enlarged lymph nodes (principal); R60.0 Localized edema
CPT/HCPCS: 93970

== ENCOUNTER 2020-10-11 02:37 | Outpatient (RCR) | payer MEDICAID, SELFPAY ==
[2020-09-20] MEDS: Normal Saline Flush 10 ML SYR IVP (08:05)
[2020-09-20 08:17] LABS: Abs Immature Grans 0.03 10^3/uL (0.0-0.06); Absolute Eosinophil Count 0.01 10^3/uL (0.0-0.7); Absolute Lymphocyte Count 1.41 10^3/uL (1.2-3.4); Absolute Monocyte Count 0.27 10^3/uL (0.1-0.8); Absolute Neutrophil Count 2.48 10^3/uL (1.2-6.7); Eosinophils % 0.2; HCT 29.4 % (36.0-46.0); HGB 9.4 g/dL (11.2-15.7); Immature Grans % 0.7; Lymphocytes % 33.6; MCH 27.4 pg (27.0-33.0); MCV 85.7 fL (80-95); MPV 10.4 fL (8.0-11.0); Monocytes % 6.4; Neutrophils % 59.1; Nucleated RBC 0 %; RBC 3.43 10^6/uL (3.93-5.22); RDW 15.2 % (11.7-14.6)
[2020-09-20 08:28] LABS: ALT 21 U/L (14-59); AST 60 U/L (15-37); Albumin 2.8 g/dL (3.4-5.0); Alkaline Phosphatase 183 U/L (46-116); Anion Gap 12.8 mmol/L (3-11); BUN 17 mg/dL (7-18); Bilirubin, Total 0.5 mg/dL (0.2-1.0); CO2 23.2 mmol/L (21.0-32.0); CREATININE 0.9 mg/dL (0.55-1.02); Calcium 9.9 mg/dL (8.5-10.1); Chloride 102 mmol/L (98-107); Glucose 221 mg/dL (74-106); LDH 621 U/L (81-234); Potassium 3.1 mmol/L (3.5-5.1); Sodium 138 mmol/L (136-145); Total Protein 5.9 g/dL (6.4-8.2)
[2020-09-20 08:32] LABS: Anisocytosis 1+; Diff Comment PLT Morph Reviewed; Platelet Count 87 10^3/uL (130-400)
[2020-09-20 13:39] LABS: Magnesium 1.7 mg/dL (1.8-2.4); Uric Acid 3.5 mg/dL (2.6-6.0)
[2020-09-22] MEDS: Normal Saline Flush 10 ML SYR IVP (12:07)
[2020-09-22 12:19] LABS: Abs Immature Grans 0.01 10^3/uL (0.0-0.06); Absolute Lymphocyte Count 0.39 10^3/uL (1.2-3.4); Absolute Monocyte Count 0.01 10^3/uL (0.1-0.8); HCT 28.5 % (36.0-46.0); HGB 9.1 g/dL (11.2-15.7); Immature Grans % 0.5; Lymphocytes % 21.2; MCH 26.8 pg (27.0-33.0); MCHC 31.9 % (32.0-36.0); MCV 84.1 fL (80-95); Monocytes % 0.5; Neutrophils % 77.8; Nucleated RBC 0 %; RBC 3.39 10^6/uL (3.93-5.22); RDW 15.1 % (11.7-14.6)
[2020-09-22 12:30] LABS: ALT 32 U/L (14-59); AST 74 U/L (15-37); Albumin 2.7 g/dL (3.4-5.0); Alkaline Phosphatase 131 U/L (46-116); Anion Gap 8.3 mmol/L (3-11); BUN 23 mg/dL (7-18); Bilirubin, Total 0.6 mg/dL (0.2-1.0); CO2 27.7 mmol/L (21.0-32.0); CREATININE 0.7 mg/dL (0.55-1.02); Calcium 10.1 mg/dL (8.5-10.1); Chloride 99 mmol/L (98-107); Glucose 146 mg/dL (74-106); LDH 794 U/L (81-234); Magnesium 2.1 mg/dL (1.8-2.4); Potassium 4.5 mmol/L (3.5-5.1); Sodium 135 mmol/L (136-145); Total Protein 6.1 g/dL (6.4-8.2); Uric Acid 3.7 mg/dL (2.6-6.0)
[2020-09-22 12:39] LABS: Absolute Neutrophil Count 1.43 10^3/uL (1.2-6.7); Diff Comment Diff Reviewed; RBC Morphology Normal
[2020-09-22 12:40] LABS: Platelet Count 61 10^3/uL (130-400); WBC 1.84 10^3/uL (4.4-10.8)
[2020-09-27] MEDS: Normal Saline Flush 10 ML SYR IVP (14:02)
[2020-09-27 14:09] LABS: Abs Immature Grans 0.01 10^3/uL (0.0-0.06); HCT 25.1 % (36.0-46.0); HGB 8.1 g/dL (11.2-15.7); MCH 26.8 pg (27.0-33.0); MCHC 32.3 % (32.0-36.0); MCV 83.1 fL (80-95); MPV 10.2 fL (8.0-11.0); Nucleated RBC 0 %; RBC 3.02 10^6/uL (3.93-5.22); RDW 14.6 % (11.7-14.6); RDW-SD 44.4 fL
[2020-09-27 14:17] LABS: ALT 25 U/L (14-59); AST 55 U/L (15-37); Albumin 2.6 g/dL (3.4-5.0); Alkaline Phosphatase 133 U/L (46-116); Anion Gap 6.5 mmol/L (3-11); BUN 15 mg/dL (7-18); Bilirubin, Total 0.5 mg/dL (0.2-1.0); CO2 29.5 mmol/L (21.0-32.0); CREATININE 0.8 mg/dL (0.55-1.02); Calcium 10.3 mg/dL (8.5-10.1); Chloride 95 mmol/L (98-107); Glucose 300 mg/dL (74-106); LDH 704 U/L (81-234); Potassium 4.2 mmol/L (3.5-5.1); Sodium 131 mmol/L (136-145); Total Protein 6.4 g/dL (6.4-8.2)
[2020-09-27 14:33] LABS: Absolute Monocyte Count 0.09 10^3/uL (0.1-0.8)
[2020-09-27 14:35] LABS: WBC 1.08 10^3/uL (4.4-10.8)
[2020-09-27 14:36] LABS: Diff Comment Manual Differential; Hypochromasia 1+; Metamyelocytes % 1; Platelet Count 12 10^3/uL (130-400)
[2020-09-27 14:37] LABS: Poikilocytes 1+
[2020-09-27 14:38] LABS: Absolute Lymphocyte Count 0.28 10^3/uL (1.2-3.4); Atypical Lymphocytes % 3
[2020-09-27 18:21] LABS: Uric Acid 2.3 mg/dL (2.6-6.0)
[2020-10-04] MEDS: Heparin 500 UNITS/5 ML SYRINGE IV (14:47)
[2020-10-04] MEDS: Normal Saline Flush 10 ML SYR IVP (14:47)
[2020-10-04 15:06] LABS: HCT 26.6 % (36.0-46.0); HGB 8.3 g/dL (11.2-15.7); MCHC 31.2 % (32.0-36.0); MCV 86.6 fL (80-95); MPV 11.3 fL (8.0-11.0); Nucleated RBC 1 %; RBC 3.07 10^6/uL (3.93-5.22); RDW 16.5 % (11.7-14.6); RDW-SD 51.7 fL; WBC 3.56 10^3/uL (4.4-10.8)
[2020-10-04 15:17] LABS: ALT 15 U/L (14-59); AST 82 U/L (15-37); Albumin 2.5 g/dL (3.4-5.0); Alkaline Phosphatase 133 U/L (46-116); BUN 8 mg/dL (7-18); Bilirubin, Total 0.4 mg/dL (0.2-1.0); CREATININE 0.8 mg/dL (0.55-1.02); Calcium 11.4 mg/dL (8.5-10.1); Chloride 100 mmol/L (98-107); Glucose 114 mg/dL (74-106); LDH 685 U/L (81-234); Potassium 3.4 mmol/L (3.5-5.1); Sodium 142 mmol/L (136-145); Total Protein 5.9 g/dL (6.4-8.2)
[2020-10-04 15:26] LABS: Absolute Eosinophil Count 0.07 10^3/uL (0.0-0.7); Absolute Lymphocyte Count 1.32 10^3/uL (1.2-3.4); Absolute Monocyte Count 0.32 10^3/uL (0.1-0.8); Absolute Neutrophil Count 1.82 10^3/uL (1.2-6.7); Bands % 1; Platelet Count 35 10^3/uL (130-400)
[2020-10-04 15:28] LABS: Diff Comment Manual Differential; Hypochromasia 1+; Myelocytes % 1; Poikilocytes 1+; Polychromasia Present
[2020-10-06] MEDS: Normal Saline Flush 10 ML SYR IVP (08:00)
[2020-10-06 08:23] LABS: Absolute Basophil Count 0.02 10^3/uL (0.0-0.2); Absolute Lymphocyte Count 0.91 10^3/uL (1.2-3.4); Absolute Monocyte Count 0.53 10^3/uL (0.1-0.8); Absolute Neutrophil Count 2.93 10^3/uL (1.2-6.7); Basophils % 0.4; HCT 26.1 % (36.0-46.0); HGB 8.2 g/dL (11.2-15.7); Immature Grans % 2.2; Lymphocytes % 20.3; MCH 27.2 pg (27.0-33.0); MCHC 31.4 % (32.0-36.0); MCV 86.4 fL (80-95); MPV 10.8 fL (8.0-11.0); Monocytes % 11.8; Neutrophils % 65.3; Nucleated RBC 0 %; RBC 3.02 10^6/uL (3.93-5.22); RDW 16.7 % (11.7-14.6); RDW-SD 51.4 fL; WBC 4.49 10^3/uL (4.4-10.8)
[2020-10-06 08:34] LABS: ALT 15 U/L (14-59); AST 99 U/L (15-37); Albumin 2.5 g/dL (3.4-5.0); Alkaline Phosphatase 134 U/L (46-116); Anion Gap 11.3 mmol/L (3-11); BUN 7 mg/dL (7-18); Bilirubin, Total 0.4 mg/dL (0.2-1.0); CO2 28.7 mmol/L (21.0-32.0); CREATININE 0.8 mg/dL (0.55-1.02); Calcium 11.4 mg/dL (8.5-10.1); Chloride 100 mmol/L (98-107); Glucose 126 mg/dL (74-106); LDH 822 U/L (81-234); Potassium 3.4 mmol/L (3.5-5.1); Sodium 140 mmol/L (136-145); Total Protein 6.1 g/dL (6.4-8.2)
[2020-10-06 08:40] LABS: Diff Comment PLT Morph Reviewed; Platelet Count 40 10^3/uL (130-400)
[2020-10-06 08:41] LABS: Anisocytosis 1+; Hypochromasia 1+; Microcytosis 1+; Poikilocytes 1+; Polychromasia Present
== END 2020-10-17 23:59 | disposition home or self-care (01) ==
LOC: INF 02:37
PROVIDERS: PCP Physician Assistant; Visit Provider Internal Medicine Hematology & Oncology
DX: C82.08 Follicular lymphoma grade I, lymph nodes of multiple sites; Z45.2 Encounter for adjustment and management of vascular access device; C85.98 Non-Hodgkin lymphoma, unspecified, lymph nodes of multiple sites
CPT/HCPCS: 36591; 80053; 86850; 86900; 86901; 83615; 83735; 84100; 84550; 85025

== ENCOUNTER 2020-11-15 02:55 | Outpatient (RCR) | payer MEDICAID, SELFPAY ==
[2020-11-05] MEDS: Normal Saline Flush 10 ML SYR IVP (09:10)
[2020-11-05 09:12] LABS: Abs Immature Grans 0.07 10^3/uL (0.0-0.06); Absolute Basophil Count 0.01 10^3/uL (0.0-0.2); Absolute Monocyte Count 0.49 10^3/uL (0.1-0.8); Absolute Neutrophil Count 1.52 10^3/uL (1.2-6.7); Basophils % 0.3; HCT 23.8 % (36.0-46.0); HGB 8.2 g/dL (11.2-15.7); Immature Grans % 2.4; Lymphocytes % 27.7; MCH 28.8 pg (27.0-33.0); MCHC 34.5 % (32.0-36.0); MCV 83.5 fL (80-95); MPV 11.3 fL (8.0-11.0); Neutrophils % 52.6; Nucleated RBC 0 %; RBC 2.85 10^6/uL (3.93-5.22); RDW 14.3 % (11.7-14.6); RDW-SD 43.1 fL; WBC 2.89 10^3/uL (4.4-10.8)
[2020-11-05 09:36] LABS: Diff Comment Diff Reviewed; Platelet Count 18 10^3/uL (130-400)
[2020-11-05 09:37] LABS: Hypochromasia 2+
[2020-11-05 09:38] LABS: Poikilocytes 1+
[2020-11-05 13:25] VITALS: BP 132/78; PULSE 89; RESP 18; TEMP 36.9; O2SAT 99
[2020-11-05 14:45] VITALS: BP 154/88; PULSE 83; RESP 18; TEMP 36.3; O2SAT 100
[2020-11-05 15:21] LABS: Platelet Count 22 10^3/uL (130-400)
[2020-11-08 09:24] LABS: Abs Immature Grans 0.12 10^3/uL (0.0-0.06); Absolute Basophil Count 0.01 10^3/uL (0.0-0.2); Absolute Lymphocyte Count 0.62 10^3/uL (1.2-3.4); Absolute Monocyte Count 0.69 10^3/uL (0.1-0.8); Basophils % 0.3; HCT 22.5 % (36.0-46.0); HGB 7.8 g/dL (11.2-15.7); Immature Grans % 4.1; Lymphocytes % 21.1; MCH 28.9 pg (27.0-33.0); MCHC 34.7 % (32.0-36.0); MCV 83.3 fL (80-95); Monocytes % 23.5; Nucleated RBC 0 %; RDW 14.9 % (11.7-14.6); RDW-SD 41.3 fL; WBC 2.94 10^3/uL (4.4-10.8)
[2020-11-08 09:38] LABS: ALT 20 U/L (14-59); AST 26 U/L (15-37); Albumin 3.4 g/dL (3.4-5.0); Alkaline Phosphatase 119 U/L (46-116); BUN 10 mg/dL (7-18); Bilirubin, Total 0.5 mg/dL (0.2-1.0); CREATININE 0.5 mg/dL (0.55-1.02); Calcium 8.6 mg/dL (8.5-10.1); Chloride 105 mmol/L (98-107); Glucose 102 mg/dL (74-106); LDH 257 U/L (81-234); Potassium 3.8 mmol/L (3.5-5.1); Sodium 142 mmol/L (136-145)
[2020-11-08 09:47] LABS: Platelet Count 25 10^3/uL (130-400)
[2020-11-08 09:49] LABS: Hypochromasia 1+; Microcytosis 1+; Polychromasia Present
[2020-11-08 09:50] LABS: Diff Comment Diff Reviewed
[2020-11-08 11:45] VITALS: BP 126/83; PULSE 89; RESP 18; TEMP 36.9; O2SAT 98
[2020-11-08 12:00] VITALS: BP 126/73; PULSE 86; RESP 16; TEMP 36.7; O2SAT 99
[2020-11-08 12:30] VITALS: BP 126/82; PULSE 83; RESP 18; TEMP 36.7; O2SAT 99
[2020-11-08 13:02] VITALS: BP 131/84; PULSE 83; RESP 16; TEMP 36.8; O2SAT 97
[2020-11-08 13:27] VITALS: BP 129/85; PULSE 68; RESP 18; TEMP 36.6; O2SAT 98
[2020-11-08] MEDS: Normal Saline Flush 10 ML SYR IVP (13:28)
[2020-11-10] MEDS: Normal Saline Flush 10 ML SYR IVP (08:56)
[2020-11-10 09:22] LABS: Abs Immature Grans 0.08 10^3/uL (0.0-0.06); Absolute Basophil Count 0.01 10^3/uL (0.0-0.2); Absolute Lymphocyte Count 0.69 10^3/uL (1.2-3.4); Absolute Monocyte Count 0.51 10^3/uL (0.1-0.8); Absolute Neutrophil Count 1.83 10^3/uL (1.2-6.7); Basophils % 0.3; HCT 25.5 % (36.0-46.0); HGB 8.5 g/dL (11.2-15.7); Immature Grans % 2.6; Lymphocytes % 22.1; MCH 28.7 pg (27.0-33.0); MCHC 33.3 % (32.0-36.0); MCV 86.1 fL (80-95); MPV 11.9 fL (8.0-11.0); Monocytes % 16.3; Neutrophils % 58.7; Nucleated RBC 0 %; RBC 2.96 10^6/uL (3.93-5.22); RDW 15.6 % (11.7-14.6); RDW-SD 42.8 fL; WBC 3.12 10^3/uL (4.4-10.8)
[2020-11-10 09:34] LABS: ALT 18 U/L (14-59); AST 24 U/L (15-37); Albumin 3.5 g/dL (3.4-5.0); Alkaline Phosphatase 111 U/L (46-116); Anion Gap 11.9 mmol/L (3-11); Anisocytosis 1+; BUN 10 mg/dL (7-18); Bilirubin, Total 0.5 mg/dL (0.2-1.0); CO2 26.1 mmol/L (21.0-32.0); CREATININE 0.6 mg/dL (0.55-1.02); Chloride 103 mmol/L (98-107); Diff Comment Diff Reviewed; Glucose 177 mg/dL (74-106); Platelet Count 38 10^3/uL (130-400); Polychromasia Present; Potassium 4.1 mmol/L (3.5-5.1); Sodium 141 mmol/L (136-145); Total Protein 7.2 g/dL (6.4-8.2)
[2020-11-11 08:46] LABS: IgA 222 mg/dL (85-499); IgG 864 mg/dL (610-1,616); IgM 38 mg/dL (35-242)
[2020-11-12] MEDS: Normal Saline Flush 10 ML SYR IVP (08:58)
[2020-11-12 09:05] LABS: Abs Immature Grans 0.05 10^3/uL (0.0-0.06); Absolute Lymphocyte Count 0.89 10^3/uL (1.2-3.4); Absolute Monocyte Count 0.54 10^3/uL (0.1-0.8); Absolute Neutrophil Count 2.46 10^3/uL (1.2-6.7); HCT 25.7 % (36.0-46.0); HGB 8.7 g/dL (11.2-15.7); Immature Grans % 1.3; Lymphocytes % 22.6; MCH 29.6 pg (27.0-33.0); MCHC 33.9 % (32.0-36.0); MCV 87.4 fL (80-95); MPV 10.6 fL (8.0-11.0); Monocytes % 13.7; Neutrophils % 62.4; Nucleated RBC 0 %; RBC 2.94 10^6/uL (3.93-5.22); RDW 16.9 % (11.7-14.6); RDW-SD 44.4 fL; WBC 3.94 10^3/uL (4.4-10.8)
[2020-11-12 09:22] LABS: Anisocytosis 1+; Diff Comment Diff Reviewed; Hypochromasia 2+; Platelet Count 57 10^3/uL (130-400); Polychromasia Present
[2020-11-12 09:23] LABS: Poikilocytes 2+
[2020-11-15 09:00] LABS: Abs Immature Grans 0.03 10^3/uL (0.0-0.06); Absolute Basophil Count 0.01 10^3/uL (0.0-0.2); Absolute Lymphocyte Count 0.59 10^3/uL (1.2-3.4); Absolute Monocyte Count 0.57 10^3/uL (0.1-0.8); Absolute Neutrophil Count 2.32 10^3/uL (1.2-6.7); Basophils % 0.3; HCT 26.2 % (36.0-46.0); HGB 8.7 g/dL (11.2-15.7); Immature Grans % 0.9; Lymphocytes % 16.8; MCH 29.3 pg (27.0-33.0); MCHC 33.2 % (32.0-36.0); MCV 88.2 fL (80-95); MPV 10.5 fL (8.0-11.0); Monocytes % 16.2; Neutrophils % 65.8; Nucleated RBC 0 %; RBC 2.97 10^6/uL (3.93-5.22); RDW 18.6 % (11.7-14.6); RDW-SD 55.5 fL; WBC 3.52 10^3/uL (4.4-10.8)
[2020-11-15] MEDS: Normal Saline Flush 10 ML SYR IVP (09:00)
[2020-11-15 09:28] LABS: ALT 20 U/L (14-59); AST 26 U/L (15-37); Albumin 3.5 g/dL (3.4-5.0); Alkaline Phosphatase 110 U/L (46-116); Anion Gap 11.8 mmol/L (3-11); BUN 8 mg/dL (7-18); Bilirubin, Total 0.5 mg/dL (0.2-1.0); CO2 25.2 mmol/L (21.0-32.0); CREATININE 0.6 mg/dL (0.55-1.02); Calcium 8.7 mg/dL (8.5-10.1); Chloride 104 mmol/L (98-107); Glucose 151 mg/dL (74-106); LDH 283 U/L (81-234); Potassium 3.8 mmol/L (3.5-5.1); Sodium 141 mmol/L (136-145); Total Protein 6.7 g/dL (6.4-8.2)
[2020-11-15 09:30] LABS: Anisocytosis 2+; Diff Comment Diff Reviewed; Microcytosis 1+; Platelet Count 92 10^3/uL (130-400); Polychromasia Present
== END 2020-11-17 23:59 | disposition home or self-care (01) ==
LOC: INF 02:55
PROVIDERS: PCP Physician Assistant; Visit Provider Internal Medicine Hematology & Oncology
DX: C82.98 Follicular lymphoma, unspecified, lymph nodes of multiple sites (principal); Z45.2 Encounter for adjustment and management of vascular access device
CPT/HCPCS: 36430; 36591; 80053; 82784; 86850; 86900; 86901; 86920; 86945; 83615; 85025; 85049; 86644; P9016; P9035

== ENCOUNTER 2020-11-21 20:13 | Emergency (ER) | payer MEDICAID, SELFPAY ==
[2020-11-21 20:27] VITALS: BP 125/83; PULSE 86; RESP 20; TEMP 36.8; O2SAT 97
--- NOTE | 2020-11-21 20:48 | W.ED.GENAD ---
Discharge Plan Disposition Patient Disposition: HOME Condition: Stable Discharge Details Clinical Impression: Arm pain, right Primary Care Provider: David West ED Provider: Michele Gamez Home Meds and New Rx's Prescriptions: New cyclobenzaprine 10 mg tablet 10 mg PO TID PRN (Reason: muscle spasm) Qty: 20 RF: 0 Continued clonazepam 0.5 mg tablet 0.5 mg PO DAILY PRNRF: 0 metformin 500 mg tablet 500 mg PO BID RF: 0 acyclovir 400 mg Tablet 400 mg PO BID RF: 0 sertraline 50 mg Tablet 50 mg PO DAILY RF: 0 loratadine [Claritin] 10 mg Tablet 10 mg PO DAILY RF: 0 Discharge Instructions Additional Instructions: Your pain is likely due to a muscle strain from overuse. Because of your history of cancer we are asking you to return to radiology tomorrow for an ultrasound and they should contact you in the morning to arrange a time to have an ultrasound of your arm done continue with tylenol and ibuprofen as needed do not drink alcohol or drive if you take the flexeril if you have severe worsenning pain, difficulty breathing, chest pain or feel more ill return to the emergency department Medical Decision Making 50 yo female with hx of nonhodgkins lymphoma comes in with chief complaint of right bicep pain. She states she decided to do yard work today for the first time in quite some time and used her arms a lot and was lifting things and strained her right arm. Denies falls or trauma. Denies chest pain or dyspnea and denies swelling of the arm. She has pain over the right bicep on exam with full rom of the arm with no swelling or erythema, normal distal sensation and pulses. 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 Her symptoms do seem most consistent with strain vs spasm or possible overuse injury. She has no chest pain, dyspnea or other symptoms to suggest acs, pe or other emergent condition and given reproducible pain in the right bicep do not feel lab work indicated. I did discuss with her possibility of dvt though exam not consistent with this , given her cancer history advised she should have an ultrasoud done to evaluate for this and placed order for her to come tomorrow to have this done. No findings to suggest massive dvt requiring emergent interventions so do not feel she requires transfer for emergent ultrasound. I did discuss risks benefits of dose of lovenox until u/s is done and she at this time is declining to have the lovenox which I feel is reasonable given low likelihood of dvt based on her exam. Differential Diagnosis Differential Diagnosis: strain, spasm, overuse, dvt Medical Records Medical records reviewed: Yes I reviewed the patient's medical records. HPI General Mode of arrival: ambulatory. Date/Time Provider Initiated Documentation: 11/21/20 20:32. Limitations to Documentation: no limitations. Information obtained by: patient. History of Present Illness 50 year old F presents to the emergency department with the chief complaint of right arm pain, described as moderate, Quality is described as aching, and is localized to the right and upper extremity. Patient reports no radiation. Patient started experiencing this hour(s) (6) and it has been constant. No relieving factors improve symptom(s), No exacerbating factors reported . Patient notes no other symptoms.. Patient did receive the following treatments prior to arrival, NSAID Related Data Home Medications Medication Instructions Recorded Confirmed clonazepam 0.5 mg tablet 0.5 mg PO DAILY PRN 03/15/20 11/21/20 metformin 500 mg tablet 500 mg PO BID 03/15/20 11/21/20 acyclovir 400 mg PO BID 11/21/20 11/21/20 cyclobenzaprine 10 mg PO TID PRN #20 tab 11/21/20 loratadine [Claritin] 10 mg PO DAILY 11/21/20 11/21/20 sertraline 50 mg PO DAILY 11/21/20 11/21/20 Previous Rx's Medication Instructions Recorded cyclobenzaprine 10 mg PO TID PRN #20 tab 11/21/20 Allergies Allergy/AdvReac Type Severity Reaction Status Date / Time latex Allergy Unverified 11/21/20 20:35 Penicillins Allergy Verified 11/21/20 20:35 General Stated Complaint: Orthopedic SANDI: 4 Review of Systems All systems reviewed & are unremarkable except as noted in HPI and below Constitutional Constitutional: Denies chills, Denies fever(s) and Denies weakness Cardiovascular Cardiovascular: Denies chest pain and Denies dyspnea Respiratory Respiratory: Denies cough and Denies dyspnea Gastrointestinal Gastrointestinal: Denies abdominal pain, Denies nausea and Denies vomiting Musculoskeletal Musculoskeletal: Denies joint swelling Neurologic Neurologic: Denies weakness [facility] Medical History Diabetes Fracture of middle phalanx of right middle finger (~02/01/20) Non-Hodgkin lymphoma Social History Smoking/Tobacco Use Status: Former Tobacco Use Smoking risk assessment performed?: Yes Alcohol Intake: never Drug use: Daily Substance use type: marijuana Details: edibles Do you feel safe at home: Yes Do you feel safe in your relationship?: Yes Exam Const General: no acute distress Orientation: alert HENMT Head: normal to inspection Ears: external ears normal General nose exam: external nose normal Mouth: moist mucous membranes Eyes General: appearance normal, both eyes and all related structures Neck Neck: normal visual inspection Resp Effort & Inspection: normal respiratory effort and able to speak in complete sentences Cardio Rate: regular rate Skin General skin exam: no rashes or lesions noted Neuro General: patient alert and patient oriented x3 Extrem General: normal to inspection, full ROM and capillary refill normal Psych Mental Status: mental status grossly normal Course Vital Signs Vital signs: Vital Signs Temperature 36.8 C 11/21/20 20:27 Pulse 86 11/21/20 20:27 Respiratory Rate 20 11/21/20 20:27 Blood Pressure 125/83 11/21/20 20:27 Pulse Oximetry 97 11/21/20 20:27 Temperature 36.8 C 11/21/20 20:27 Temperature Source Oral 11/21/20 20:27 Pulse 86 11/21/20 20:27 Respiratory Rate 20 11/21/20 20:27 Respiratory Effort Non-Labored 11/21/20 20:39 Blood Pressure 125/83 11/21/20 20:27 Blood Pressure Position Sitting 11/21/20 20:27 Pulse Oximetry 97 11/21/20 20:27 Oxygen Delivery Method Room Air 11/21/20 20:27 Oxygen Flow Rate 0 11/21/20 20:27 Pain Level 10 11/21/20 20:27
[2020-11-21] MEDS: Lidocaine 5% Patch 1 PATCH TP (20:56)
[2020-11-21] MEDS: Cyclobenzaprine 10 MG TAB PO (20:56)
[2020-11-21] MEDS: Cyclobenzaprine 10 MG TAB, 3 TABS/BTL PO (20:57)
== END 2020-11-21 21:10 | disposition home or self-care (01) ==
PROVIDERS: Emergency Provider Emergency Medicine; PCP Physician Assistant
DX: M70.821 Other soft tissue disorders related to use, overuse and pressure, right upper arm (principal)
CPT/HCPCS: 99283

== ENCOUNTER 2020-11-22 12:26 | Emergency (ER) | payer MEDICAID, SELFPAY ==
[2020-11-22 12:51] VITALS: BP 130/81; PULSE 86; RESP 18; TEMP 36.6; O2SAT 98
--- NOTE | 2020-11-22 13:30 | W.ED.GENAD ---
Discharge Plan Disposition Patient Disposition: HOME Condition: Stable Discharge Details Clinical Impression: DVT (deep venous thrombosis) Primary Care Provider: David West ED Provider: Amber Samano Home Meds and New Rx's Prescriptions: Continued clonazepam 0.5 mg tablet 0.5 mg PO DAILY PRNRF: 0 metformin 500 mg tablet 500 mg PO BID RF: 0 acyclovir 400 mg Tablet 400 mg PO BID RF: 0 sertraline 50 mg Tablet 50 mg PO DAILY RF: 0 loratadine [Claritin] 10 mg Tablet 10 mg PO DAILY RF: 0 cyclobenzaprine 10 mg tablet 10 mg PO TID PRN (Reason: muscle spasm) Qty: 20 RF: 0 ondansetron HCl 4 mg tablet 4 mg PO PRN PRNRF: 0 Discharge Instructions Instructions: Deep Vein Thrombosis (ED) Additional Instructions: Please return immediately to the emergency department if you develop any new or worsening symptoms, if your condition does not improve as expected, or if you become otherwise concerned. It is extremely important that you speak with your oncologist, Dr. Yeung, this afternoon regarding your results as we discussed. It is also extremely important that you call make an appointment to be seen by your primary care doctor in follow-up. Referrals: David West [Primary Care Provider] - Josefa Yeung MD [ NON-[facility] STAFF PHYSICIAN] - Discharge Data Discharge Date/Time-TO BE ENTERED AT DEPARTURE: 11/22/20 14:38 Medical Decision Making Radha Ventura is a 50 y/o woman with history of non-Hodgkin's lymphoma who presented here yesterday for left arm pain, discharged home with plan for ultrasound this morning, patient now here for ultrasound results after undergoing ultrasound. Ultrasound shows nonocclusive thrombus in the visualized portions of the right subclavian and internal jugular veins. Exam/history at this time is not consistent with pulmonary embolism, limb ischemia, other acute vascular emergency, septic or inflammatory arthritis, no other acute emergent medical issue identified. Results were relayed to patient, who states that she is unsure whether she has been told that she has some chronic clot in this area in the past. I discussed patient's presentation results over the phone with her oncologist, Dr. Yeung, who requested the following: Labs to be performed now (will send CBC, CMP, coags), and Dr. Yeung will will follow up on lab results and call patient later this afternoon to discuss anticoagulation as in the past patient has been hesitant to start anticoagulant medication; she recommends discharge to home at this point without further acute intervention. I had a lengthy discussion with Patient regarding this plan and return to emergency department precautions, home care, and importance of outpatient follow-up. Pt verbalizes understanding of the plan and is amenable. She request to be discharged prior to labs being resulted, I did discuss the risks of this with the patient and she does continue to require discharge. Patient discharged to home with clear plan for outpatient follow-up. All questions were answered. Disposition decision was made weighing the risks and benefits of hospitalization versus outpatient treatment, the risk for further decompensation, and the patient's wishes. Medical Records Medical records reviewed: Yes I reviewed the patient's medical records. Imaging Data Radiologic Study: Attestation: I personally reviewed and interpreted this imaging study as follows: Radiologist's impression: EXAM: US UPPER EXTREMITY VENOUS RT CLINICAL HISTORY: HX CANCER, RT ARM PAIN, R/O DVT. TECHNIQUE: Ultrasound examination of the right upper extremity venous system(s) is performed using grayscale, color-flow, and spectral Doppler analysis. COMPARISON: CT CT CHEST/ABD/PEL W from 08/25/2020 FINDINGS: There is a nonocclusive thrombus within visualized portions of the right internal jugular and subclavian veins. The visualized portions of the axillary, cephalic, basilic and brachial veins are patent without evidence of thrombosis. IMPRESSION: Nonocclusive thrombus is seen within visualized portion of the right internal jugular and subclavian veins. Lab Data Lab results reviewed: Yes I reviewed the patient's lab results. Labs: Laboratory Tests Range/Units 11/22/20 11/22/20 11/22/20 14:30 14:30 14:30 WBC (4.4-10.8) 10^3/uL 3.97 L RBC (3.93-5.22) 10^6/uL 3.07 L Hgb (11.2-15.7) g/dL 9.1 L Hct (36.0-46.0) % 27.4 L MCV (80-95) fL 89.3 MCH (27.0-33.0) pg 29.6 MCHC (32.0-36.0) % 33.2 RDW (11.7-14.6) % 20.1 H Plt Count (130-400) 10^3/uL 81 L MPV (8.0-11.0) fL 10.3 Immature Gran % 1.3 Neutrophils % 74.9 Lymphocytes % 9.1 Monocytes % 14.1 Eosinophils % 0.3 Basophils % 0.3 Nucleated RBC % % 0 Absolute Neutrophils (1.2-6.7) 10^3/uL 2.97 Absolute Lymphocytes (1.2-3.4) 10^3/uL 0.36 L Absolute Monocytes (0.1-0.8) 10^3/uL 0.56 Absolute Eosinophils (0.0-0.7) 10^3/uL 0.01 Absolute Basophils (0.0-0.2) 10^3/uL 0.01 RBC Morphology See below Polychromasia Present Poikilocytosis 1+ Anisocytosis 1+ PT (9.3-11.0) sec 10.2 INR (0.9-1.1) 1.0 APTT (21.0-27.5) sec 24.5 Sodium (136-145) mmol/L 140 Potassium (3.5-5.1) mmol/L 4.2 Chloride (98-107) mmol/L 102 Carbon Dioxide (21.0-32.0) mmol/L 25.8 Anion Gap (3-11) mmol/L 12.2 H BUN (7-18) mg/dL 14 Creatinine (0.55-1.02) mg/dL 0.7 Estimated GFR/1.73 m2 (mL/min/1.73m2) >= 60.00 Glucose (74-106) mg/dL 96 Calcium (8.5-10.1) mg/dL 9.0 Total Bilirubin (0.2-1.0) mg/dL 0.5 AST (15-37) U/L 31 ALT (14-59) U/L 24 Alkaline Phosphatase (46-116) U/L 106 Lactate Dehydrogenase (81-234) U/L 367 H Total Protein (6.4-8.2) g/dL 7.2 Albumin (3.4-5.0) g/dL 3.8 HPI General Mode of arrival: ambulatory. Date/Time Provider Initiated Documentation: 11/22/20 12:58. Limitations to Documentation: no limitations. Information obtained by: patient, RN notes reviewed and old records reviewed. HPI Narrative: Radha Ventura is a 50-year-old woman with a history of non-Hodgkin's lymphoma presenting to emergency department for ultrasound results. Per patient and record review, patient was seen here yesterday for right-sided arm pain. Patient reports that yesterday she was doing quite a bit yard work in preparation for being back in the hospital for further cancer treatment. Patient reports that after doing yard work she began to have pain in her right upper arm and lower arm. She states that she had no swelling, no redness, no weakness, no numbness, no joint pain, no other new pain. She denies fevers, cough, shortness of breath, vomiting, diarrhea. At time of encounter last night ultrasound not available and was ordered to be performed today. Patient reports that since she was discharged last night she used a Lidoderm patch which is quite helpful and also Flexeril. Patient reports that her pain has continued but is significantly improved from when she presented yesterday. She denies any other new symptoms other than moderate pain in the right upper arm and mild pain in the right forearm. Patient reports that she was recently inpatient at [facility] for her cancer treatment and is currently undergoing both radiation and chemotherapy. Related Data Home Medications Medication Instructions Recorded Confirmed clonazepam 0.5 mg tablet 0.5 mg PO DAILY PRN 03/15/20 11/22/20 metformin 500 mg tablet 500 mg PO BID 03/15/20 11/22/20 acyclovir 400 mg PO BID 11/21/20 11/22/20 cyclobenzaprine 10 mg PO TID PRN #20 tab 11/21/20 11/22/20 loratadine [Claritin] 10 mg PO DAILY 11/21/20 11/22/20 sertraline 50 mg PO DAILY 11/21/20 11/22/20 ondansetron HCl 4 mg PO PRN PRN 11/22/20 11/22/20 Previous Rx's Medication Instructions Recorded cyclobenzaprine 10 mg PO TID PRN #20 tab 11/21/20 Allergies Allergy/AdvReac Type Severity Reaction Status Date / Time latex Allergy Unverified 11/22/20 12:54 Penicillins Allergy Verified 11/22/20 12:54 General Stated Complaint: Recheck SANDI: 3 Review of Systems Narrative: Constitutional: denies fevers Eyes: denies eye pain ENT: denies ear pain, dental pain, sore throat Cardiovascular: denies chest pain Respiratory: denies SOB, cough GI: denies abdominal pain, vomiting, diarrhea : denies flank pain MSK: denies back pain, neck pain, arthralgias, reports myalgias as per HPI Skin: denies rash Neuro: denies headaches, numbness, weakness PFSH Medical History Diabetes Fracture of middle phalanx of right middle finger (~02/01/20) Non-Hodgkin lymphoma Social History Smoking/Tobacco Use Status: Former Tobacco Use Smoking risk assessment performed?: Yes Alcohol Intake: never Drug use: Daily Substance use type: marijuana Details: edibles Do you feel safe at home: Yes Do you feel safe in your relationship?: Yes Exam Narrative Exam Narrative: Constitutional: well and [id number], pleasant, conversing normally HENT: head atraumatic/normocephalic/normal inspection, mucous membranes moist Eyes: conjunctiva normal, sclera normal, pupils 3mm b/l Neck: no stridor, normal ROM, trachea midline Chest: normal inspection Resp: normal work of breathing, speaking in full sentences Cardio: normal rate, normal rhythm Skin: warm, dry, normal color, no rash Neuro: alert, not altered, grossly non-focal, normal tone Ext: no edema right upper extremity, full range of motion right shoulder and right elbow without pain, motor 5 out of 5 bilateral upper extremities, sensation intact right upper extremity, radial pulses intact and symmetric Psych: normal mood, normal affect, normal behavior Course Vital Signs Vital signs: Vital Signs Temperature 36.6 C 11/22/20 12:51 Pulse 86 11/22/20 12:51 Respiratory Rate 18 11/22/20 12:51 Blood Pressure 130/81 11/22/20 12:51 Pulse Oximetry 98 11/22/20 12:51 Temperature 36.6 C 11/22/20 12:51 Temperature Source Skin 11/22/20 12:51 Pulse 86 11/22/20 12:51 Respiratory Rate 18 11/22/20 12:51 Respiratory Effort Non-Labored 11/22/20 12:56 Blood Pressure 130/81 11/22/20 12:51 Blood Pressure Position Sitting 11/22/20 12:51 Pulse Oximetry 98 11/22/20 12:51 Oxygen Delivery Method Room Air 11/22/20 12:51 Oxygen Flow Rate 0 11/22/20 12:51 Pain Level 5 11/22/20 12:51 Comment 11/22/20 12:51
[2020-11-22] MEDS: Lidocaine 5% Patch 1 PATCH TP (13:44)
[2020-11-22 14:41] LABS: Abs Immature Grans 0.05 10^3/uL (0.0-0.06); Absolute Basophil Count 0.01 10^3/uL (0.0-0.2); Absolute Eosinophil Count 0.01 10^3/uL (0.0-0.7); Absolute Lymphocyte Count 0.36 10^3/uL (1.2-3.4); Absolute Monocyte Count 0.56 10^3/uL (0.1-0.8); Basophils % 0.3; Eosinophils % 0.3; HCT 27.4 % (36.0-46.0); HGB 9.1 g/dL (11.2-15.7); Immature Grans % 1.3; Lymphocytes % 9.1; MCH 29.6 pg (27.0-33.0); MCHC 33.2 % (32.0-36.0); MCV 89.3 fL (80-95); MPV 10.3 fL (8.0-11.0); Monocytes % 14.1; Neutrophils % 74.9; Nucleated RBC 0 %; RBC 3.07 10^6/uL (3.93-5.22); RDW 20.1 % (11.7-14.6); RDW-SD 62.4 fL; WBC 3.97 10^3/uL (4.4-10.8)
[2020-11-22 14:50] LABS: Absolute Neutrophil Count 2.97 10^3/uL (1.2-6.7)
[2020-11-22 14:51] LABS: ALT 24 U/L (14-59); AST 31 U/L (15-37); Albumin 3.8 g/dL (3.4-5.0); Alkaline Phosphatase 106 U/L (46-116); Anion Gap 12.2 mmol/L (3-11); BUN 14 mg/dL (7-18); Bilirubin, Total 0.5 mg/dL (0.2-1.0); CO2 25.8 mmol/L (21.0-32.0); CREATININE 0.7 mg/dL (0.55-1.02); Chloride 102 mmol/L (98-107); Glucose 96 mg/dL (74-106); LDH 367 U/L (81-234); Potassium 4.2 mmol/L (3.5-5.1); Sodium 140 mmol/L (136-145); Total Protein 7.2 g/dL (6.4-8.2)
[2020-11-22 14:54] LABS: PTT Activated 24.5 sec (21.0-27.5); Prothrombin Time 10.2 sec (9.3-11.0)
--- NOTE | 2020-11-22 14:57 | NUR.NOTE ---
1430 Port accessed with a 19g .75 inch Winn needle for lab draw. Blood collected and port line flushed per protocol and d/c. Bandaid applied.
[2020-11-22 15:12] LABS: Anisocytosis 1+; Diff Comment RBC Morph Reviewed; Platelet Count 81 10^3/uL (130-400); Polychromasia Present
[2020-11-22 15:13] LABS: Poikilocytes 1+
== END 2020-11-22 14:38 | disposition home or self-care (01) ==
PROVIDERS: Emergency Provider Student in an Organized Health Care Education/Training Program; PCP Physician Assistant
DX: I82.621 Acute embolism and thrombosis of deep veins of right upper extremity (principal)
CPT/HCPCS: 80053; 83615; 85025; 85610; 85730

== ENCOUNTER 2020-11-22 19:53 | Outpatient (CLI) | payer MEDICAID, SELFPAY ==
--- NOTE | 2020-11-22 | DI.US_ITS ---
EXAM: US UPPER EXTREMITY VENOUS RT CLINICAL HISTORY: HX CANCER, RT ARM PAIN, R/O DVT. TECHNIQUE: Ultrasound examination of the right upper extremity venous system(s) is performed using g rayscale, color-flow, and spectral Doppler analysis. COMPARISON: CT CT CHEST/ABD/PEL W from 08/25/2020 FINDINGS: There is a nonocclusive thrombus within visualized portions of the right internal jugular and subclav rolando veins. The visualized portions of the axillary, cephalic, basilic and brachial veins are patent without evidence of thrombosis. IMPRESSION: Nonocclusive thrombus is seen within visualized portion of the right internal jugular and subclavian veins. DATA REPOSITORY:
== END 2020-11-22 20:13 ==
PROVIDERS: PCP Physician Assistant; Visit Provider Emergency Medicine
DX: M79.601 Pain in right arm (principal); I82.C11 Acute embolism and thrombosis of right internal jugular vein; I82.B11 Acute embolism and thrombosis of right subclavian vein
CPT/HCPCS: 93971

== ENCOUNTER 2020-11-22 20:22 | Emergency (ER) | payer MEDICAID, SELFPAY ==
[2020-11-22 20:25] VITALS: BP 130/69; PULSE 95; RESP 18; TEMP 36.6; O2SAT 98
--- NOTE | 2020-11-22 20:30 | RT.EKG_ITS ---
APPROVED REPORT Exam: Resting ECG Patient Location: E HR:90 bpm ECG Measurements Heart Rate 90 AXIS WY 126 P 60 QRSd 80 QRS 13 QT 361 T 17 QTc 442 Conclusion Sinus rhythm...normal P axis, V-rate 60- 99 Physician: No STEMI, no significant abnormalities
--- NOTE | 2020-11-22 20:40 | ED.GENADUL_ITS ---
Discharge Plan Disposition Patient Disposition: HOME Condition: Good Discharge Details Clinical Impression: Left forearm pain Primary Care Provider: David West ED Provider: Steve Garza Home Meds and New Rx's Prescriptions: Continued clonazepam 0.5 mg tablet 0.5 mg PO DAILY PRNRF: 0 metformin 500 mg tablet 500 mg PO BID RF: 0 acyclovir 400 mg Tablet 400 mg PO BID RF: 0 sertraline 50 mg Tablet 50 mg PO DAILY RF: 0 loratadine [Claritin] 10 mg Tablet 10 mg PO DAILY RF: 0 cyclobenzaprine 10 mg tablet 10 mg PO TID PRN (Reason: muscle spasm) Qty: 20 RF: 0 ondansetron HCl 4 mg tablet 4 mg PO PRN PRNRF: 0 Discharge Instructions Additional Instructions: At this time your pain is likely related to your cancer. Please take the [place] only as needed. Please continue to take your Eliquis. Please follow-up closely with your oncologist. If you notice any worsening of your symptoms, or any new symptoms such as vomiting, diarrhea, fever, chills, shortness of breath, chest pain, numbness, weakness, or fainting , please return immediately to the emergency department for reevaluation. Please follow up with your primary care provider as soon as possible for reassessment and reevaluation. As always, it was a pleasure participating in your medical care today. Referrals: David West [Primary Care Provider] - Medical Decision Making This is a 50-year-old female with a past medical history of non- Hodgkin's lymphoma, and recent right upper extremity DVT that was diagnosed just a few hours ago here in the emergency department and subsequently started on Eliquis by her oncologist per the patient. She had been doing well, but then this evening when she woke up from her nap this evening she had notable pain in her left forearm. She states that it is identical to previous bone pain that she gets from her non-Hodgkin's lymphoma. She states that this is a new type of pain but usually it is managed by her home Claritin (which she states specifically seems to work, but has baffled her physician providers as to why). Unfortunately with no improvement of the pain with the Claritin she has come to the ER for further assessment. Center pain in the forearm which she describes as identical to her normal bone pain she denies any other pain. She denies any pain in the proximal arm, the chest, she denies a shortness of breath, pleuritic chest pain, arm neck or shoulder pain. She denies any bandlike sensation around the chest. She denies a history of cardiac disease. She states that this pain also feels notably different than her DVT pain that she is experiencing. She denies fever or chills. No other complaints at this time. No numbness or tingling. No recent traumas or falls. Exam demonstrates no focal findings on the forearm. Normal neurovascular exam. No signs of trauma. I did discuss getting x-rays, but the patient has declined stating that this feels identical to her bone pain and already knows that her malignancy has affected the bone. Clinical exam shows no evidence of trauma that would suggest fracture. Due to the patient's age and atypical arm findings we did get a screening EKG which showed no signs of STEMI. Patient did just have labs a few hours ago, no indication for new labs. Symptoms are inconsistent with ACS, and does not warrant further blood testing at this time. We will give Dilaudid for cancer associated bone pain, and then [place] as needed for home use. 9:20 PM Patient feeling better after the pain medication. She states she would like to go home. Patient is following up with a primary care provider tomorrow. Patient will be given 4 [place]'s to go home with to use as needed. EKG unremarkable. Symptoms are inconsistent with trauma or neurovascular compromise. Patient will be discharged home. Discussed red flags which to return. I have extensively reviewed the treatment plan and discharge instructions with the patient and their family. I have addressed all patient concerns at this time. The patient and family was made aware of what symptoms to monitor for that would warrant a return to the emergency department. Discussed the plan with the patient and family, they demonstrate verbal understanding and agreement with our assessment and plan at this time. The documentation in this chart was dictated using [employer] dictation software. Please excuse any dictation errors. HPI General Date/Time Provider Initiated Documentation: 11/22/20 20:23 . HPI Narrative: This is a 50-year-old female with a past medical history of non-Hodgk in's lymphoma, and recent right upper extremity DVT that was diagnosed just a few hours ago here in the emergency department and subsequently started on Eliquis by her oncologist per the patient. She had been doing well, but then this evening when she woke up from her nap this evening she had notable pain in her left forearm. She states that it is identical to previous bone pain that she gets from her non-Hodgkin's lymphoma. She states that this is a new type of pain but usually it is managed by her home Claritin (which she states specifically seems to work, but has baffled her physician providers as to why). Unfortunately with no improvement of the pain with the Claritin she has come to the ER for further assessment. Center pain in the forearm which she describes as identical to her normal bone pain she denies any other pain. She denies any pain in the proximal arm, the chest, she denies a shortness of breath, pleuritic chest pain, arm neck or shoulder pain. She denies any bandlike sensation around the chest. She denies a history of cardiac disease. She states that this pain also feels notably different than her DVT pain that she is experiencing. She denies fever or chills. No other complaints at this time. No numbness or tingling. No recent traumas or falls. Related Data Home Medications Medication Instructions Recorded Confirmed clonazepam 0.5 mg tablet 0.5 mg PO DAILY PRN 03/15/20 11/22/20 metformin 500 mg tablet 500 mg PO BID 03/15/20 11/22/20 acyclovir 400 mg PO BID 11/21/20 11/22/20 cyclobenzaprine 10 mg PO TID PRN #20 tab 11/21/20 11/22/20 loratadine [Claritin] 10 mg PO DAILY 11/21/20 11/22/20 sertraline 50 mg PO DAILY 11/21/20 11/22/20 ondansetron HCl 4 mg PO PRN PRN 11/22/20 11/22/20 Previous Rx's Medication Instructions Recorded cyclobenzaprine 10 mg PO TID PRN #20 tab 11/21/20 Allergies Allergy/AdvReac Type Severity Reaction Status Date / Time latex Allergy Unverified 11/22/20 12:54 Penicillins Allergy Verified 11/22/20 12:54 General Stated Complaint: Orthopedic SANDI: 3 Review of Systems All systems reviewed & are unremarkable except as noted in HPI and below [facility] Medical History Diabetes Fracture of middle phalanx of right middle finger (~02/01/20) Non-Hodgkin lymphoma Social History Smoking/Tobacco Use Status: Former Tobacco Use Smoking risk assessment performed?: Yes Alcohol Intake: never Drug use: Daily Substance use type: marijuana Details: edibles Do you feel safe at home: Yes Do you feel safe in your relationship?: Yes Exam Narrative Exam Narrative: 1.Const: Well-nourished, Well-developed, appearing stated age 2.Eyes: PERRL, no conjunctival injection, and symmetrical lids. 3.ENT: Atraumatic external nose and ears. Moist MM. Neck: Symmetric, trachea midline, No thyromegaly. 4.CVS: +S1/S2, No murmurs or gallops. Peripheral pulses 2+ and equal in all extremities. Brisk capillary refill in all extremities. 5.RESP: Unlabored respiratory effort. Clear to auscultation bilaterally. No wheezes rales or rhonchi 6.GI: Soft, Nontender/Nondistended, No hepatosplenomegaly. No guarding or rebound. 7.MSK: Normocephalic/Atraumatic, Extremities w/o deformity, No cyanosis or clubbing, Normal movement of all extremities. Patient's left forearm demonstrates no signs of abrasions, trauma, hematomas, or bruising. No deformity. No focal tenderness over the left forearm. Patient's left hand is otherwise unremarkable. Normal neurovascular exam. Normal route sales specialist strength. Symmetrically palpable radial and ulnar pulses. Capillary refill less than 2 seconds to all digits. Intact sensation to light touch of the radial, median and ulnar nerves demonstrated by testing in the dorsal web space of the thumb, the distal palmar aspect of the index finger, and the lateral surface of the fifth finger. 2 point discrimination intact to 5mm (up to 6mm can be normal in digits 3-5) of discrimination in the affected digit. Intact motor function of the radial, median and ulnar nerves demonstrated by strength of extension of the isolated distal joint of the index finger, hand route sales specialist, and spreading of the 2nd through 5th digits. Intact recurrent median nerve as demonstrated by ability to move thumb fully through opposition, abduction and flexion. No snuffbox tenderness. 8.Skin: Warm, Dry. No rashes or lesions. 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 Sensation grossly intact, no focal neurologic deficits. 10.Psych: (AAO) x3. Appropriate mood and affect Course Vital Signs Vital signs: Vital Signs Temperature 36.6 C 11/22/20 20:25 Pulse 95 H 11/22/20 20:25 Respiratory Rate 18 11/22/20 20:25 Blood Pressure 130/69 11/22/20 20:25 Pulse Oximetry 98 11/22/20 20:25 Temperature 36.6 C 11/22/20 20:25 Temperature Source Skin 11/22/20 20:25 Pulse 95 H 11/22/20 20:25 Respiratory Rate 18 11/22/20 20:25 Blood Pressure 130/69 11/22/20 20:25 Blood Pressure Position Sitting 11/22/20 20:25 Pulse Oximetry 98 11/22/20 20:25 Oxygen Delivery Method Room Air 11/22/20 20:25 Oxygen Flow Rate 0 11/22/20 20:25 Comment started on eliquis 11/22/20 20:25
[2020-11-22] MEDS: HYDROmorphone 2 MG/ML VIAL 1 MG IVP (21:05)
[2020-11-22] MEDS: Heparin 500 UNITS/5 ML SYRINGE (21:09)
[2020-11-22 21:10] VITALS: BP 128/78; PULSE 94; RESP 20; O2SAT 98
== END 2020-11-22 21:20 | disposition home or self-care (01) ==
PROVIDERS: Emergency Provider Student in an Organized Health Care Education/Training Program; PCP Physician Assistant
DX: M79.632 Pain in left forearm (principal); G89.3 Neoplasm related pain (acute) (chronic); C85.90 Non-Hodgkin lymphoma, unspecified, unspecified site; Z45.2 Encounter for adjustment and management of vascular access device
CPT/HCPCS: 36591; 93005; 96374; 99284; 93010

== ENCOUNTER 2020-12-17 04:24 | Outpatient (RCR) | payer MEDICAID, SELFPAY ==
[2020-11-18 00:05] VITALS: BP 129/85; PULSE 68; RESP 18; TEMP 36.6
[2020-12-01] MEDS: Normal Saline Flush 10 ML SYR IVP (08:56)
[2020-12-01 09:04] LABS: Abs Immature Grans 0.07 10^3/uL (0.0-0.06); Absolute Basophil Count 0.01 10^3/uL (0.0-0.2); Absolute Eosinophil Count 0.01 10^3/uL (0.0-0.7); Absolute Lymphocyte Count 0.04 10^3/uL (1.2-3.4); Absolute Neutrophil Count 3.19 10^3/uL (1.2-6.7); Basophils % 0.3; Eosinophils % 0.3; HCT 25.5 % (36.0-46.0); HGB 8.6 g/dL (11.2-15.7); Immature Grans % 2.1; Lymphocytes % 1.2; MCH 29.7 pg (27.0-33.0); MCHC 33.7 % (32.0-36.0); MCV 87.9 fL (80-95); MPV 11.8 fL (8.0-11.0); Neutrophils % 96.1; Nucleated RBC 0 %; RDW 16.6 % (11.7-14.6); RDW-SD 53.5 fL; WBC 3.32 10^3/uL (4.4-10.8)
[2020-12-01 09:20] LABS: ALT 23 U/L (14-59); AST 28 U/L (15-37); Albumin 3.5 g/dL (3.4-5.0); Alkaline Phosphatase 106 U/L (46-116); BUN 17 mg/dL (7-18); Bilirubin, Total 0.6 mg/dL (0.2-1.0); CREATININE 0.7 mg/dL (0.55-1.02); Calcium 8.8 mg/dL (8.5-10.1); Chloride 103 mmol/L (98-107); Glucose 173 mg/dL (74-106); LDH 526 U/L (81-234); Potassium 3.6 mmol/L (3.5-5.1); Sodium 139 mmol/L (136-145); Total Protein 6.8 g/dL (6.4-8.2)
[2020-12-01 09:21] LABS: Platelet Count 17 10^3/uL (130-400)
[2020-12-01 09:22] LABS: Anisocytosis 1+; Diff Comment Diff Reviewed
[2020-12-01 13:20] VITALS: BP 126/78; PULSE 100; RESP 18; TEMP 36.8; O2SAT 98
[2020-12-01 14:05] VITALS: BP 122/78; PULSE 99; RESP 14; TEMP 36.5; O2SAT 99
[2020-12-01 14:54] LABS: Platelet Count 24 10^3/uL (130-400)
[2020-12-03] VITALS (8 sets, daily range): BP systolic 114–123; BP diastolic 72–78; PULSE 82–92; RESP 16–18; TEMP 36.5–37.4; O2SAT 99–100
[2020-12-03] MEDS: Normal Saline Flush 10 ML SYR IVP (08:52)
[2020-12-03 09:17] LABS: HCT 22.5 % (36.0-46.0); HGB 7.9 g/dL (11.2-15.7); MCH 29.8 pg (27.0-33.0); MCHC 35.1 % (32.0-36.0); MCV 84.9 fL (80-95); MPV 8.7 fL (8.0-11.0); Nucleated RBC 0 %; RBC 2.65 10^6/uL (3.93-5.22); RDW 15.9 % (11.7-14.6); RDW-SD 48.9 fL
[2020-12-03 09:44] LABS: Platelet Count 6 10^3/uL (130-400); WBC 0.08 10^3/uL (4.4-10.8)
[2020-12-03 09:48] LABS: Diff Comment Diff Reviewed; RBC Morphology Normal
[2020-12-03 14:26] LABS: Platelet Count 9 10^3/uL (130-400)
[2020-12-13 09:07] LABS: Abs Immature Grans 0.11 10^3/uL (0.0-0.06); Absolute Eosinophil Count 0.01 10^3/uL (0.0-0.7); Absolute Monocyte Count 0.67 10^3/uL (0.1-0.8); Absolute Neutrophil Count 1.66 10^3/uL (1.2-6.7); Eosinophils % 0.3; HCT 24.9 % (36.0-46.0); HGB 8.3 g/dL (11.2-15.7); Lymphocytes % 32.9; MCH 28.1 pg (27.0-33.0); MCHC 33.3 % (32.0-36.0); MCV 84.4 fL (80-95); MPV 13.5 fL (8.0-11.0); Monocytes % 18.4; Neutrophils % 45.4; RBC 2.95 10^6/uL (3.93-5.22); RDW 14.7 % (11.7-14.6); RDW-SD 44.9 fL; WBC 3.65 10^3/uL (4.4-10.8)
[2020-12-13 09:22] LABS: ALT 22 U/L (14-59); AST 20 U/L (15-37); Albumin 3.5 g/dL (3.4-5.0); Alkaline Phosphatase 122 U/L (46-116); BUN 12 mg/dL (7-18); Bilirubin, Total 0.4 mg/dL (0.2-1.0); CREATININE 0.6 mg/dL (0.55-1.02); Calcium 8.1 mg/dL (8.5-10.1); Chloride 108 mmol/L (98-107); Glucose 154 mg/dL (74-106); Sodium 145 mmol/L (136-145); Total Protein 6.6 g/dL (6.4-8.2)
[2020-12-13 09:53] LABS: Diff Comment Diff Reviewed; Nucleated RBC 0 %; Platelet Count 25 10^3/uL (130-400)
[2020-12-13 09:54] LABS: Polychromasia Present
[2020-12-17] MEDS: Normal Saline Flush 10 ML SYR IVP (09:03)
[2020-12-17 09:27] LABS: Abs Immature Grans 0.04 10^3/uL (0.0-0.06); Absolute Eosinophil Count 0.01 10^3/uL (0.0-0.7); Absolute Lymphocyte Count 0.76 10^3/uL (1.2-3.4); Absolute Monocyte Count 0.48 10^3/uL (0.1-0.8); Absolute Neutrophil Count 2.28 10^3/uL (1.2-6.7); Eosinophils % 0.3; HCT 24.4 % (36.0-46.0); Immature Grans % 1.1; Lymphocytes % 21.3; MCH 28.7 pg (27.0-33.0); MCHC 32.8 % (32.0-36.0); MCV 87.5 fL (80-95); MPV 10.7 fL (8.0-11.0); Monocytes % 13.4; Neutrophils % 63.9; Nucleated RBC 0 %; RBC 2.79 10^6/uL (3.93-5.22); RDW 15.9 % (11.7-14.6); RDW-SD 44.2 fL; WBC 3.57 10^3/uL (4.4-10.8)
[2020-12-17 09:39] LABS: Anisocytosis 1+; Diff Comment Diff Reviewed; Platelet Count 48 10^3/uL (130-400); Polychromasia Present
== END 2020-12-17 23:59 | disposition home or self-care (01) ==
LOC: INF 04:24
PROVIDERS: PCP Physician Assistant; Visit Provider Internal Medicine Hematology & Oncology
DX: C82.98 Follicular lymphoma, unspecified, lymph nodes of multiple sites (principal)
CPT/HCPCS: 36430; 36591; 80053; 86850; 86900; 86901; 86920; 86945; 83615; 85025; 85049; 86644; P9016; P9035

== ENCOUNTER 2020-12-22 12:02 | Outpatient (REF) | payer MEDICAID, SELFPAY ==
[2020-12-22 12:32] LABS: HCG Qual (Urine) Negative
== END 2020-12-22 12:03 | disposition home or self-care (01) ==
LOC: LBN 12:02
PROVIDERS: PCP Physician Assistant; Visit Provider Internal Medicine Hematology & Oncology
DX: C82.08 Follicular lymphoma grade I, lymph nodes of multiple sites (principal)
CPT/HCPCS: 81025

== ENCOUNTER 2021-01-10 01:33 | Outpatient (RCR) | payer MEDICAID, SELFPAY ==
[2020-12-18 00:18] VITALS: BP 114/78; PULSE 87; RESP 16; TEMP 36.7
[2020-12-20 09:19] LABS: Abs Immature Grans 0.05 10^3/uL (0.0-0.06); Absolute Basophil Count 0.01 10^3/uL (0.0-0.2); Absolute Lymphocyte Count 0.64 10^3/uL (1.2-3.4); Absolute Neutrophil Count 2.63 10^3/uL (1.2-6.7); Basophils % 0.3; HCT 24.5 % (36.0-46.0); Immature Grans % 1.3; Lymphocytes % 16.3; MCH 29.2 pg (27.0-33.0); MCHC 32.7 % (32.0-36.0); MCV 89.4 fL (80-95); MPV 10.8 fL (8.0-11.0); Monocytes % 15.3; Neutrophils % 66.8; Nucleated RBC 0 %; Platelet Count 67 10^3/uL (130-400); RBC 2.74 10^6/uL (3.93-5.22); RDW 18.6 % (11.7-14.6); RDW-SD 46.1 fL; WBC 3.93 10^3/uL (4.4-10.8)
[2020-12-20 09:27] LABS: ALT 36 U/L (14-59); AST 26 U/L (15-37); Albumin 3.7 g/dL (3.4-5.0); Alkaline Phosphatase 105 U/L (46-116); Anion Gap 8.9 mmol/L (3-11); BUN 13 mg/dL (7-18); Bilirubin, Total 0.4 mg/dL (0.2-1.0); CO2 28.1 mmol/L (21.0-32.0); CREATININE 0.6 mg/dL (0.55-1.02); Calcium 8.6 mg/dL (8.5-10.1); Chloride 107 mmol/L (98-107); Glucose 132 mg/dL (74-106); LDH 226 U/L (81-234); Potassium 4.2 mmol/L (3.5-5.1); Sodium 144 mmol/L (136-145); Total Protein 6.7 g/dL (6.4-8.2)
[2020-12-20] MEDS: Normal Saline Flush 10 ML SYR IVP (09:45)
[2020-12-20 10:07] LABS: Diff Comment Diff Reviewed
[2020-12-20 10:08] LABS: Anisocytosis 1+
[2020-12-22 09:14] LABS: Abs Immature Grans 0.03 10^3/uL (0.0-0.06); Absolute Basophil Count 0.01 10^3/uL (0.0-0.2); Absolute Lymphocyte Count 0.85 10^3/uL (1.2-3.4); Absolute Monocyte Count 0.62 10^3/uL (0.1-0.8); Absolute Neutrophil Count 2.66 10^3/uL (1.2-6.7); Basophils % 0.2; HCT 27.5 % (36.0-46.0); Immature Grans % 0.7; Lymphocytes % 20.4; MCH 29.8 pg (27.0-33.0); MCHC 32.7 % (32.0-36.0); MCV 91.1 fL (80-95); MPV 10.6 fL (8.0-11.0); Monocytes % 14.9; Neutrophils % 63.8; Nucleated RBC 0 %; Platelet Count 93 10^3/uL (130-400); RBC 3.02 10^6/uL (3.93-5.22); RDW 20.4 % (11.7-14.6); RDW-SD 51.2 fL; WBC 4.17 10^3/uL (4.4-10.8)
[2020-12-22] MEDS: Normal Saline Flush 10 ML SYR IVP (09:19)
[2020-12-27] MEDS: Normal Saline Flush 10 ML SYR IVP (08:56)
[2020-12-27 09:16] LABS: Abs Immature Grans 0.06 10^3/uL (0.0-0.06); Absolute Basophil Count 0.01 10^3/uL (0.0-0.2); Absolute Lymphocyte Count 0.82 10^3/uL (1.2-3.4); Absolute Monocyte Count 0.66 10^3/uL (0.1-0.8); Absolute Neutrophil Count 3.15 10^3/uL (1.2-6.7); Basophils % 0.2; HCT 28.3 % (36.0-46.0); HGB 9.3 g/dL (11.2-15.7); Immature Grans % 1.3; Lymphocytes % 17.4; MCH 30.3 pg (27.0-33.0); MCHC 32.9 % (32.0-36.0); MCV 92.2 fL (80-95); MPV 9.7 fL (8.0-11.0); Neutrophils % 67.1; Nucleated RBC 0 %; Platelet Count 80 10^3/uL (130-400); RBC 3.07 10^6/uL (3.93-5.22); RDW 21.8 % (11.7-14.6); RDW-SD 68.9 fL
[2020-12-27 09:29] LABS: ALT 31 U/L (14-59); AST 19 U/L (15-37); Albumin 3.8 g/dL (3.4-5.0); Alkaline Phosphatase 113 U/L (46-116); Anion Gap 7.2 mmol/L (3-11); BUN 13 mg/dL (7-18); Bilirubin, Total 0.5 mg/dL (0.2-1.0); CO2 28.8 mmol/L (21.0-32.0); CREATININE 0.7 mg/dL (0.55-1.02); Calcium 8.9 mg/dL (8.5-10.1); Chloride 109 mmol/L (98-107); Glucose 130 mg/dL (74-106); LDH 171 U/L (81-234); Potassium 4.3 mmol/L (3.5-5.1); Sodium 145 mmol/L (136-145)
[2020-12-27 09:48] LABS: Anisocytosis 2+; Diff Comment Diff Reviewed
[2021-01-03] MEDS: Normal Saline Flush 10 ML SYR IVP (08:48)
[2021-01-03 09:07] LABS: Abs Immature Grans 0.06 10^3/uL (0.0-0.06); Absolute Basophil Count 0.03 10^3/uL (0.0-0.2); Absolute Eosinophil Count 0.03 10^3/uL (0.0-0.7); Absolute Lymphocyte Count 0.71 10^3/uL (1.2-3.4); Absolute Neutrophil Count 4.05 10^3/uL (1.2-6.7); Basophils % 0.5; Eosinophils % 0.5; HCT 30.1 % (36.0-46.0); HGB 10.1 g/dL (11.2-15.7); Immature Grans % 1.1; MCH 31.1 pg (27.0-33.0); MCHC 33.6 % (32.0-36.0); MCV 92.6 fL (80-95); MPV 10.2 fL (8.0-11.0); Monocytes % 10.9; Nucleated RBC 0 %; RBC 3.25 10^6/uL (3.93-5.22); RDW 20.5 % (11.7-14.6); RDW-SD 68.4 fL; WBC 5.48 10^3/uL (4.4-10.8)
[2021-01-03 09:30] LABS: ALT 41 U/L (14-59); AST 28 U/L (15-37); Albumin 3.8 g/dL (3.4-5.0); Alkaline Phosphatase 108 U/L (46-116); Anion Gap 8.9 mmol/L (3-11); BUN 12 mg/dL (7-18); Bilirubin, Total 0.5 mg/dL (0.2-1.0); CO2 28.1 mmol/L (21.0-32.0); CREATININE 0.7 mg/dL (0.55-1.02); Calcium 8.7 mg/dL (8.5-10.1); Chloride 108 mmol/L (98-107); Glucose 119 mg/dL (74-106); LDH 151 U/L (81-234); Potassium 4.4 mmol/L (3.5-5.1); Sodium 145 mmol/L (136-145); Total Protein 6.9 g/dL (6.4-8.2)
[2021-01-03 09:33] LABS: Platelet Count 92 10^3/uL (130-400)
[2021-01-03 09:34] LABS: Anisocytosis 2+; Basophilic Stippling Present; Diff Comment Diff Reviewed; Polychromasia Present
[2021-01-03 11:07] LABS: HCG Qual (Urine) Negative
[2021-01-10] MEDS: Normal Saline Flush 10 ML SYR IVP (08:42)
[2021-01-10 08:55] LABS: Abs Immature Grans 0.06 10^3/uL (0.0-0.06); Absolute Basophil Count 0.02 10^3/uL (0.0-0.2); Absolute Eosinophil Count 0.11 10^3/uL (0.0-0.7); Absolute Lymphocyte Count 0.39 10^3/uL (1.2-3.4); Absolute Monocyte Count 0.59 10^3/uL (0.1-0.8); Absolute Neutrophil Count 4.32 10^3/uL (1.2-6.7); Basophils % 0.4; HCT 31.8 % (36.0-46.0); HGB 10.9 g/dL (11.2-15.7); Immature Grans % 1.1; Lymphocytes % 7.1; MCH 31.9 pg (27.0-33.0); MCHC 34.3 % (32.0-36.0); MPV 9.9 fL (8.0-11.0); Monocytes % 10.7; Neutrophils % 78.7; Nucleated RBC 0 %; RBC 3.42 10^6/uL (3.93-5.22); RDW 18.6 % (11.7-14.6); RDW-SD 62.2 fL; WBC 5.49 10^3/uL (4.4-10.8)
[2021-01-10 09:12] LABS: ALT 102 U/L (14-59); AST 74 U/L (15-37); Albumin 3.9 g/dL (3.4-5.0); Alkaline Phosphatase 128 U/L (46-116); Anion Gap 8.1 mmol/L (3-11); BUN 14 mg/dL (7-18); Bilirubin, Total 0.8 mg/dL (0.2-1.0); CO2 28.9 mmol/L (21.0-32.0); CREATININE 0.7 mg/dL (0.55-1.02); Calcium 8.4 mg/dL (8.5-10.1); Chloride 107 mmol/L (98-107); Glucose 156 mg/dL (74-106); LDH 173 U/L (81-234); Sodium 144 mmol/L (136-145)
[2021-01-10 09:14] LABS: Diff Comment Diff Reviewed; Platelet Count 62 10^3/uL (130-400)
[2021-01-10 09:15] LABS: Anisocytosis 1+
[2021-01-10 11:03] LABS: HCG Qual (Urine) Negative
== END 2021-01-17 23:59 | disposition home or self-care (01) ==
LOC: INF 01:33
PROVIDERS: PCP Physician Assistant; Visit Provider Internal Medicine Hematology & Oncology
DX: C82.98 Follicular lymphoma, unspecified, lymph nodes of multiple sites (principal); Z45.2 Encounter for adjustment and management of vascular access device
CPT/HCPCS: 36591; 80053; 86900; 86901; 81025; 83615; 85025

== ENCOUNTER 2021-01-12 13:09 | Outpatient (CLI) | payer MEDICAID, SELFPAY ==
--- NOTE | 2021-01-12 | DI.US_ITS ---
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 Normal color-flow and normal compression and augmentation properties. Brachial vein(s):Patent. Normal color flow. Normal compression and augmentation properties. Cephalic vein:Patent. Normal color flow. Normal compression and augmentation properties. Axillary vein: Patent. Normal color flow. Normal compression and augmentation properties. Visualized subclavian vein: Patent. No obvious intraluminal thrombus. Visualized internal jugular vein: Appears patent. There appears to be a catheter possibly Port-A-Cat h. IMPRESSION: 1. No evidence of obvious venous thrombosis in the right upper extremity. 2. Density in the right jugular/subclavian vein region is probably catheter. DATA REPOSITORY:
--- NOTE | 2021-01-12 | DI.US_ITS ---
Exam(s) US SOFT TISSUE HEAD OR NECK EXAM: US SOFT TISSUE HEAD OR NECK CLINICAL HISTORY: GRADE 1 FOLLICULAR LYMPHOMA, LYMPH NODES OF MULTIPLE REGIONS C82.08. TECHNIQUE: Ultrasound was performed using standard protocol. COMPARISON: US US UPPER EXTREMITY VENOUS RT from 11/22/2020 US US UPPER EXTREMITY VENOUS RT from 01/12/2021 FINDINGS: Examination both sides the neck was performed. RIGHT-SIDE: The base of the skull correspond to palpable lump there is lymph node measuring 2 x 1.2 x 0.6 cm. Just below the level of the ear there is another 1.1 x 0.4 x 1.3 cm lymph node, apparently palpable. There also multiple slightly smaller lymph nodes seen throughout the right side of the nec k. LEFT SIDE: There is a 1.4 x 0.8 x 1.3 cm lymph node inferior-lateral to the ear corresponding to a pa lpable finding. Also lymph nodes submandibular region and lateral neck measuring 2.5 x 0.7 x 0.8 cm and 1.5 x 0.9 x 1 .4 cm. There also multiple other additional enlarged lymph nodes in the left side of the neck. No abnormal fluid collection on either side of the neck. IMPRESSION: Bilateral neck adenopathy. Suspicious for lymphoma. DATA REPOSITORY:
== END 2021-01-12 13:29 ==
PROVIDERS: PCP Physician Assistant; Visit Provider Nurse Practitioner Family
DX: C82.08 Follicular lymphoma grade I, lymph nodes of multiple sites (principal)
CPT/HCPCS: 76536; 93971

== ENCOUNTER 2021-02-14 02:47 | Outpatient (RCR) | payer MEDICAID, SELFPAY ==
[2021-01-18 00:18] VITALS: BP 114/78; PULSE 87; RESP 16; TEMP 36.7
[2021-01-18] MEDS: Normal Saline Flush 10 ML SYR IVP (08:40)
[2021-01-18 08:47] LABS: Abs Immature Grans 0.04 10^3/uL (0.0-0.06); Absolute Basophil Count 0.02 10^3/uL (0.0-0.2); Absolute Eosinophil Count 0.13 10^3/uL (0.0-0.7); Absolute Lymphocyte Count 0.58 10^3/uL (1.2-3.4); Absolute Neutrophil Count 4.52 10^3/uL (1.2-6.7); Basophils % 0.3; Eosinophils % 2.2; HGB 10.6 g/dL (11.2-15.7); Immature Grans % 0.7; Lymphocytes % 9.7; MCH 31.9 pg (27.0-33.0); MCHC 34.2 % (32.0-36.0); MCV 93.4 fL (80-95); MPV 12.3 fL (8.0-11.0); Monocytes % 11.7; Neutrophils % 75.4; Nucleated RBC 0 %; RBC 3.32 10^6/uL (3.93-5.22); RDW 16.7 % (11.7-14.6); WBC 5.99 10^3/uL (4.4-10.8)
[2021-01-18 09:00] LABS: ALT 82 U/L (14-59); AST 33 U/L (15-37); Albumin 3.7 g/dL (3.4-5.0); Alkaline Phosphatase 152 U/L (46-116); Anion Gap 7.5 mmol/L (3-11); BUN 10 mg/dL (7-18); Bilirubin, Total 0.6 mg/dL (0.2-1.0); CO2 30.5 mmol/L (21.0-32.0); CREATININE 0.6 mg/dL (0.55-1.02); Calcium 8.5 mg/dL (8.5-10.1); Chloride 107 mmol/L (98-107); Glucose 130 mg/dL (74-106); LDH 151 U/L (81-234); Potassium 3.7 mmol/L (3.5-5.1); Sodium 145 mmol/L (136-145); Total Protein 6.5 g/dL (6.4-8.2)
[2021-01-18 09:12] LABS: Platelet Count 59 10^3/uL (130-400)
[2021-01-18 09:13] LABS: Diff Comment Diff Reviewed; RBC Morphology Normal
[2021-01-18 09:26] LABS: HCG Qual (Urine) Negative
[2021-01-24] MEDS: Normal Saline Flush 10 ML SYR IVP (08:46)
[2021-01-24 08:56] LABS: Abs Immature Grans 0.02 10^3/uL (0.0-0.06); Absolute Basophil Count 0.04 10^3/uL (0.0-0.2); Absolute Eosinophil Count 0.11 10^3/uL (0.0-0.7); Absolute Lymphocyte Count 1.06 10^3/uL (1.2-3.4); Absolute Monocyte Count 0.87 10^3/uL (0.1-0.8); Basophils % 0.6; Eosinophils % 1.6; HCT 31.9 % (36.0-46.0); Immature Grans % 0.3; Lymphocytes % 15.8; MCH 31.8 pg (27.0-33.0); MCHC 34.5 % (32.0-36.0); MCV 92.2 fL (80-95); MPV 9.8 fL (8.0-11.0); Neutrophils % 68.7; Nucleated RBC 0 %; RBC 3.46 10^6/uL (3.93-5.22); RDW 15.9 % (11.7-14.6); RDW-SD 53.5 fL
[2021-01-24 09:05] LABS: ALT 46 U/L (14-59); AST 18 U/L (15-37); Albumin 3.9 g/dL (3.4-5.0); Alkaline Phosphatase 133 U/L (46-116); Anion Gap 9.3 mmol/L (3-11); BUN 19 mg/dL (7-18); Bilirubin, Total 0.4 mg/dL (0.2-1.0); CO2 26.7 mmol/L (21.0-32.0); CREATININE 0.9 mg/dL (0.55-1.02); Calcium 8.8 mg/dL (8.5-10.1); Chloride 108 mmol/L (98-107); Glucose 147 mg/dL (74-106); LDH 153 U/L (81-234); Potassium 4.3 mmol/L (3.5-5.1); Sodium 144 mmol/L (136-145); Total Protein 6.7 g/dL (6.4-8.2)
[2021-01-24 09:23] LABS: Diff Comment Diff Reviewed; Platelet Count 73 10^3/uL (130-400); RBC Morphology Normal
[2021-01-24 09:58] LABS: HCG Qual (Urine) Negative
[2021-01-31] MEDS: Normal Saline Flush 10 ML SYR IVP (08:49)
[2021-01-31 09:15] LABS: Abs Immature Grans 0.02 10^3/uL (0.0-0.06); Absolute Basophil Count 0.03 10^3/uL (0.0-0.2); Absolute Eosinophil Count 0.11 10^3/uL (0.0-0.7); Absolute Lymphocyte Count 0.29 10^3/uL (1.2-3.4); Absolute Monocyte Count 0.36 10^3/uL (0.1-0.8); Absolute Neutrophil Count 1.58 10^3/uL (1.2-6.7); Basophils % 1.3; Eosinophils % 4.6; HCT 31.5 % (36.0-46.0); HGB 10.8 g/dL (11.2-15.7); Immature Grans % 0.8; Lymphocytes % 12.1; MCH 32.1 pg (27.0-33.0); MCHC 34.3 % (32.0-36.0); MCV 93.8 fL (80-95); MPV 12.5 fL (8.0-11.0); Monocytes % 15.1; Neutrophils % 66.1; Nucleated RBC 0 %; Platelet Count 56 10^3/uL (130-400); RBC 3.36 10^6/uL (3.93-5.22); RDW-SD 51.6 fL; WBC 2.39 10^3/uL (4.4-10.8)
[2021-01-31 09:24] LABS: ALT 52 U/L (14-59); AST 16 U/L (15-37); Albumin 3.8 g/dL (3.4-5.0); Alkaline Phosphatase 160 U/L (46-116); Anion Gap 8.5 mmol/L (3-11); BUN 13 mg/dL (7-18); Bilirubin, Total 0.6 mg/dL (0.2-1.0); CO2 28.5 mmol/L (21.0-32.0); CREATININE 0.7 mg/dL (0.55-1.02); Calcium 8.9 mg/dL (8.5-10.1); Chloride 107 mmol/L (98-107); Glucose 150 mg/dL (74-106); LDH 136 U/L (81-234); Sodium 144 mmol/L (136-145); Total Protein 6.7 g/dL (6.4-8.2)
[2021-01-31 09:57] LABS: HCG Qual (Urine) Negative
[2021-02-07] MEDS: Normal Saline Flush 10 ML SYR IVP (08:40)
[2021-02-07 08:54] LABS: Absolute Basophil Count 0.03 10^3/uL (0.0-0.2); Absolute Eosinophil Count 0.13 10^3/uL (0.0-0.7); Absolute Lymphocyte Count 0.76 10^3/uL (1.2-3.4); Absolute Monocyte Count 0.56 10^3/uL (0.1-0.8); Absolute Neutrophil Count 1.21 10^3/uL (1.2-6.7); Basophils % 1.1; Eosinophils % 4.8; HGB 10.4 g/dL (11.2-15.7); Lymphocytes % 28.3; MCH 31.3 pg (27.0-33.0); MCHC 34.7 % (32.0-36.0); MCV 90.4 fL (80-95); MPV 11.4 fL (8.0-11.0); Monocytes % 20.8; Nucleated RBC 0 %; RBC 3.32 10^6/uL (3.93-5.22); RDW 13.5 % (11.7-14.6); RDW-SD 44.3 fL; WBC 2.69 10^3/uL (4.4-10.8)
[2021-02-07 09:01] LABS: HCG Qual (Urine) Negative
[2021-02-07 09:07] LABS: LDH 166 U/L (81-234)
[2021-02-07 09:16] LABS: Diff Comment Diff Reviewed; Platelet Count 54 10^3/uL (130-400); RBC Morphology Normal
[2021-02-07 11:45] LABS: ALT 42 U/L (14-59); AST 24 U/L (15-37); Albumin 3.9 g/dL (3.4-5.0); Alkaline Phosphatase 102 U/L (46-116); Anion Gap 10.6 mmol/L (3-11); BUN 13 mg/dL (7-18); Bilirubin, Total 0.8 mg/dL (0.2-1.0); CO2 27.4 mmol/L (21.0-32.0); CREATININE 0.8 mg/dL (0.55-1.02); Chloride 107 mmol/L (98-107); Glucose 151 mg/dL (74-106); Potassium 3.2 mmol/L (3.5-5.1); Sodium 145 mmol/L (136-145); Total Protein 6.6 g/dL (6.4-8.2)
[2021-02-14] MEDS: Normal Saline Flush 10 ML SYR IVP (08:46)
[2021-02-14 09:00] LABS: Platelet Count 68 10^3/uL (130-400)
[2021-02-14 09:29] LABS: HGB 10.5 g/dL (11.2-15.7); MCH 31.4 pg (27.0-33.0); MCHC 33.9 % (32.0-36.0); MCV 92.8 fL (80-95); MPV 11.1 fL (8.0-11.0); Nucleated RBC 0 %; RBC 3.34 10^6/uL (3.93-5.22); RDW-SD 50.1 fL
[2021-02-14 09:47] LABS: Absolute Eosinophil Count 0.08 10^3/uL (0.0-0.7); Absolute Lymphocyte Count 0.59 10^3/uL (1.2-3.4); Absolute Monocyte Count 0.21 10^3/uL (0.1-0.8); Absolute Neutrophil Count 0.62 10^3/uL (1.2-6.7); Atypical Lymphocytes % 1; Bands % 1
[2021-02-14 09:48] LABS: Absolute Basophil Count 0.02 10^3/uL (0.0-0.2); Diff Comment Manual Differential; RBC Morphology Normal
== END 2021-02-16 23:59 | disposition home or self-care (01) ==
LOC: INF 02:47
PROVIDERS: PCP Physician Assistant; Visit Provider Internal Medicine Hematology & Oncology
DX: C82.98 Follicular lymphoma, unspecified, lymph nodes of multiple sites (principal); Z45.2 Encounter for adjustment and management of vascular access device
CPT/HCPCS: 36591; 80053; 86900; 86901; 81025; 83615; 85025; 85049

== ENCOUNTER 2021-02-16 11:21 | Outpatient (CLI) | payer MEDICAID, SELFPAY ==
--- NOTE | 2021-02-16 | DI.US_ITS ---
Exam(s) US UPPER EXTREMITY VENOUS RT EXAM: US UPPER EXTREMITY VENOUS RT CLINICAL HISTORY: FOLLICULAR LYMPHOMA OF LYMPH NODES C82.08, PAIN AND SWELLING RT SHOULDER/ TECHNIQUE: GRAYSCALE, COLOR, DOPPLER IMAGING OF THE VENOUS SYSTEM OF THE UPPER EXTREMITY-RIGHT COMPARISON: US US SOFT TISSUE HEAD OR NECK from 01/12/2021 FINDINGS: Basilic vein: Patent. Normal color-flow and normal compression and augmentation properties. Brachial vein(s):Patent. Normal color flow. Normal compression and augmentation properties. Cephalic vein:Patent. Normal color flow. Normal compression and augmentation properties. Axillary vein: Patent. Normal color flow. Normal compression and augmentation properties. Visualized subclavian vein: Patent. No obvious intraluminal thrombus. IMPRESSION: 1. No evidence of venous thrombosis in the right upper extremity. 2. DATA REPOSITORY:
== END 2021-02-16 11:41 ==
PROVIDERS: PCP Physician Assistant; Visit Provider Internal Medicine Hematology & Oncology
DX: T82.848A Pain due to vascular prosthetic devices, implants and grafts, initial encounter (principal); C82.08 Follicular lymphoma grade I, lymph nodes of multiple sites; Y83.2 Surgical operation with anastomosis, bypass or graft as the cause of abnormal reaction of the patient, or of later complication, without mention of misadventure at the time of the procedure
CPT/HCPCS: 93971

== ENCOUNTER 2021-02-17 10:04 | Outpatient (CLI) | payer MEDICAID, SELFPAY ==
--- NOTE | 2021-02-17 | DI.CT_ITS ---
Exam(s) CT UPPER EXTREMITY RT W EXAM: CT UPPER EXTREMITY RT W CLINICAL HISTORY: PAIN RT SHOULDER M25.511 RT SIDED CHEST PAIN R07.89 LYMPHOMA LYMPH NODES TECHNIQUE: Imaging Protocol: Axial computed tomography images with coronal and sagittal reformatted images were created and reviewed. CONTRAST MATERIAL: Intravenous: Omnipaque 350 Contrast volume:structured data in ml Contrast route:I V - COMPARISON: CT CT ABDOMEN PELVIS W from 05/14/[address] ABDOMEN PELVIS W from 05/14/2020 FINDINGS: OSSEOUS: There are no fractures nor osseous lesions evident in the humeral head and visualized upper 3rd of the humerus. No Hill-Sachs deformity. No bony Bankart lesion evident. No osseous lesions in the shoulder girdle including the humeral head-neck, ipsilateral visualized ribcage and clavicle and the entire right scapula was included in the field of view and appears unremarkable RIGHT AXILLA: There is significant adenopathy in the right axilla. The largest lymph node in the rig ht axilla measures 2 x 1.6 cm. There are at least 5 significantly enlarged lymph nodes in the right axilla. Please note that today's chest CT scan revealed surgical clips in the opposite-left axilla f rom prior biopsy. There is no ipsilateral supraclavicular adenopathy. There is a right supra clavi in Port-A-Cath. Th ere is no abnormal streaking nor abnormal fluid collection along the course of the catheter in the greenberg bcutaneous fat prior to vein entrance site. OTHER SOFT TISSUES: There is no obvious mass in the visualized musculature on the right side of the c hest. VISUALIZED IPSILATERAL LUNG: There is a 4-5 millimeter noncalcified nodule in the visualized lateral segment of the right middle lobe. This probably corresponds to a nodule seen in this region on CT sc an of 05/14/2020 and exhibits minimal if any significant change. IMPRESSION: The main finding here is right axillary adenopathy as described above. The largest of the 5 abnormal appearing lymph nodes in the right axilla measures approximately 2 x 1.6 cm. Concerning for lymphom a. Apparently this patient has had a previous biopsy of the opposite-left axilla. No other significant findings in the field of view of this study. If there is significant consideration for soft tissue abnormality of the rotator cuff and other intri nsic shoulder structures then follow-up MRI would be recommended RADIATION DOSE DELIVERED: Total DLP DATA REPOSITORY: All CT scans at this facility are submitted to the National Radiology Data Registry (NRDR) Dose Index Registry (DIR) with the [employer] (ACR). RADIATION OPTIMIZATION: All CT scans at this facility use at least one of these dose optimization te chniques: automated exposure control; mA and/or kV adjustment per patient size (includes targeted exa ms where dose is matched to clinical indication); or iterative reconstruction.
--- NOTE | 2021-02-17 | DI.CT_ITS ---
Exam(s) CT CHEST W EXAM: CT CHEST W CLINICAL HISTORY: PAIN RT SHOULDER M25.511 RT SIDED CHEST PAIN R07.89 LYMPHOMA LYMPH NODES. TECHNIQUE: Multi planar reconstructions were performed. CONTRAST MATERIAL: Omnipaque 350; 70 cc COMPARISON: CT CT ABDOMEN PELVIS W from 05/14/[address] ABDOMEN PELVIS W from 05/14/2020 FINDINGS: CHEST: LUNGS: Mild benign-appearing increased markings are noted in the medial basal segment of the right lo wer lobe, pleural based. There is a 3 millimeter nodule in the lateral segment of the right middle lo be noted. No other focal right lung findings. No focal left lung findings. No pleural effusions on ei ther side. There are no significant focal findings in the trachea and mainstem bronchi. There is no b ronchiectasis. MEDIASTINUM: There is no hilar nor mediastinal adenopathy. Visualized thyroid unremarkable.Left axill a exhibits clips but no adenopathy. There multiple enlarged lymph nodes in the right axilla, the larg est of these measuring 2 x 1.8 cm. There is mild surrounding streaking in the right axillary fat. No abnormal fluid collection at this level. No obvious thrombus in the visualized ipsilateral right axil rosy vein. This patient has a right supra clavi in Port-A-Cath. Its distal tip is at the upper right atrium. CARDIAC: Heart size is normal. There is no pericardial effusion.Caliber of the thoracic aorta is wit hin normal limits. VISUALIZED UPPER ABDOMEN:Partially included spleen appears enlarged. There is also some perisplenic a scites (mild). The entire spleen is not included in the field of view of this chest study. The adrena l glands are not completely included in the field of view. OSSEOUS: No significant osseous lesions.. IMPRESSION: 1. There is adenopathy in the right axilla. Surgical clips are noted in the left axilla. There is no adenopathy in the left axilla. There is no mediastinal nor hilar adenopathy. 2. Small 3-4 millimeter nodule in the right middle lobe. Small benign appearing area of infiltrate in the medial basal segment of the right lower lobe. No pleural effusions 3. Splenomegaly. Mild perisplenic ascites. Please note the entire spleen is not included in the field of view of this chest study. RADIATION DOSE DELIVERED: Total DLP DATA REPOSITORY: All CT scans at this facility are submitted to the National Radiology Data Registry (NRDR) Dose Index Registry (DIR) with the [employer] (ACR). RADIATION OPTIMIZATION: All CT scans at this facility use at least one of these dose optimization te chniques: automated exposure control; mA and/or kV adjustment per patient size (includes targeted exa ms where dose is matched to clinical indication); or iterative reconstruction.
[2021-02-17] MEDS: Normal Saline - Diluent 50 ML VIAL IV (13:54)
[2021-02-17] MEDS: Omnipaque 350 MG/ML 100 ML BTL IJ (13:54)
[2021-02-17] MEDS: Normal Saline Flush 10 ML SYR IVP (13:55)
== END 2021-02-17 10:24 ==
PROVIDERS: PCP Physician Assistant; Visit Provider Internal Medicine Hematology & Oncology
DX: Z13.89 Encounter for screening for other disorder (principal); R91.1 Solitary pulmonary nodule; R91.8 Other nonspecific abnormal finding of lung field; R16.1 Splenomegaly, not elsewhere classified; R18.8 Other ascites; M25.511 Pain in right shoulder; R59.0 Localized enlarged lymph nodes
CPT/HCPCS: 71260; 73201; J3490

== ENCOUNTER 2021-02-18 01:41 | Outpatient (CLI) | payer MEDICAID, SELFPAY ==
[2021-02-18 11:24] LABS: Source Nasal/Nares
[2021-02-18 15:53] LABS: COVID-19 PCR Negative (Negative)
== END 2021-02-18 01:42 | disposition home or self-care (01) ==
LOC: LBO 01:41
PROVIDERS: PCP Physician Assistant; Visit Provider Internal Medicine Hematology & Oncology
DX: Z20.822 Contact with and (suspected) exposure to COVID-19 (principal); Z01.818 Encounter for other preprocedural examination
CPT/HCPCS: 87635

== ENCOUNTER 2021-03-08 09:08 | Outpatient (CLI) | payer MEDICAID, SELFPAY ==
--- NOTE | 2021-03-08 | DI.US_ITS ---
Exam(s) US UPPER EXTREMITY VENOUS RT EXAM: US UPPER EXTREMITY VENOUS RT CLINICAL HISTORY: ? DVT RUE AND NECK, RT ARM PAIN/SWELLING,GRADE 1 FOLLICULAR LYMPHOMA C82.08. TECHNIQUE: Ultrasound examination of the right upper extremity venous system(s) is performed using g rayscale, color-flow, and spectral Doppler analysis. COMPARISON: CT CT UPPER EXTREMITY RT W from 02/17/[address] CHEST W from 02/17/[address] CHEST W from 02/17/2021 FINDINGS: The right internal jugular, axillary, subclavian, cephalic, basilic, brachial, radial, and ulnar vein s are patent without evidence of thrombosis. Axillary lymph nodes were noted. IMPRESSION: No evidence of deep venous thrombosis or superficial venous thrombosis. Right axillary adenopathy. DATA REPOSITORY:
== END 2021-03-08 09:28 ==
PROVIDERS: PCP Physician Assistant; Visit Provider Internal Medicine Hematology & Oncology
DX: M79.601 Pain in right arm (principal); R22.31 Localized swelling, mass and lump, right upper limb; C82.08 Follicular lymphoma grade I, lymph nodes of multiple sites; R59.0 Localized enlarged lymph nodes
CPT/HCPCS: 93971

== ENCOUNTER 2021-03-14 01:31 | Outpatient (RCR) | payer MEDICAID, SELFPAY ==
[2021-02-17 00:24] VITALS: BP 114/78; PULSE 87; RESP 16; TEMP 36.7
[2021-02-17] MEDS: Normal Saline Flush 10 ML SYR IVP (13:15)
[2021-02-22 10:45] LABS: Abs Immature Grans 0.02 10^3/uL (0.0-0.06); Absolute Basophil Count 0.04 10^3/uL (0.0-0.2); Absolute Eosinophil Count 0.06 10^3/uL (0.0-0.7); Absolute Lymphocyte Count 0.56 10^3/uL (1.2-3.4); Absolute Neutrophil Count 2.51 10^3/uL (1.2-6.7); Basophils % 1.1; Eosinophils % 1.7; HCT 31.2 % (36.0-46.0); HGB 10.8 g/dL (11.2-15.7); Immature Grans % 0.6; Lymphocytes % 15.6; MCHC 34.6 % (32.0-36.0); MCV 92.6 fL (80-95); MPV 10.9 fL (8.0-11.0); Monocytes % 11.1; Neutrophils % 69.9; Nucleated RBC 0 %; Platelet Count 84 10^3/uL (130-400); RBC 3.37 10^6/uL (3.93-5.22); RDW 14.9 % (11.7-14.6); WBC 3.59 10^3/uL (4.4-10.8)
[2021-02-22] MEDS: Normal Saline Flush 10 ML SYR IVP (11:09)
[2021-02-22 11:40] LABS: HCG Qual (Urine) Negative
[2021-02-28] MEDS: Normal Saline Flush 10 ML SYR IVP (09:21)
[2021-02-28 09:36] LABS: Abs Immature Grans 0.01 10^3/uL (0.0-0.06); Absolute Basophil Count 0.04 10^3/uL (0.0-0.2); Absolute Eosinophil Count 0.04 10^3/uL (0.0-0.7); Absolute Lymphocyte Count 0.43 10^3/uL (1.2-3.4); Absolute Monocyte Count 0.33 10^3/uL (0.1-0.8); Absolute Neutrophil Count 2.06 10^3/uL (1.2-6.7); Basophils % 1.4; Eosinophils % 1.4; HCT 33.4 % (36.0-46.0); HGB 11.4 g/dL (11.2-15.7); Immature Grans % 0.3; Lymphocytes % 14.8; MCH 31.3 pg (27.0-33.0); MCHC 34.1 % (32.0-36.0); MCV 91.8 fL (80-95); MPV 11.3 fL (8.0-11.0); Monocytes % 11.3; Neutrophils % 70.8; Nucleated RBC 0 %; Platelet Count 109 10^3/uL (130-400); RBC 3.64 10^6/uL (3.93-5.22); RDW 15.1 % (11.7-14.6); RDW-SD 50.5 fL; WBC 2.91 10^3/uL (4.4-10.8)
[2021-02-28 09:53] LABS: HCG Qual (Urine) Negative; LDH 209 U/L (81-234)
[2021-03-07 09:16] LABS: Abs Immature Grans 0.01 10^3/uL (0.0-0.06); Absolute Basophil Count 0.01 10^3/uL (0.0-0.2); Absolute Eosinophil Count 0.04 10^3/uL (0.0-0.7); Absolute Lymphocyte Count 0.29 10^3/uL (1.2-3.4); Absolute Monocyte Count 0.24 10^3/uL (0.1-0.8); Absolute Neutrophil Count 2.04 10^3/uL (1.2-6.7); Basophils % 0.4; Eosinophils % 1.5; HCT 29.4 % (36.0-46.0); Immature Grans % 0.4; MCH 31.3 pg (27.0-33.0); MCV 91.9 fL (80-95); MPV 10.8 fL (8.0-11.0); Monocytes % 9.1; Neutrophils % 77.6; Nucleated RBC 0 %; RDW 14.3 % (11.7-14.6); RDW-SD 48.5 fL; WBC 2.63 10^3/uL (4.4-10.8)
[2021-03-07 09:27] LABS: ALT 24 U/L (14-59); AST 20 U/L (15-37); Albumin 3.4 g/dL (3.4-5.0); Alkaline Phosphatase 119 U/L (46-116); Anion Gap 5.7 mmol/L (3-11); BUN 9 mg/dL (7-18); Bilirubin, Total 0.5 mg/dL (0.2-1.0); CO2 31.3 mmol/L (21.0-32.0); CREATININE 0.8 mg/dL (0.55-1.02); Calcium 8.5 mg/dL (8.5-10.1); Chloride 105 mmol/L (98-107); Glucose 108 mg/dL (74-106); LDH 265 U/L (81-234); Potassium 3.8 mmol/L (3.5-5.1); Sodium 142 mmol/L (136-145); Total Protein 6.3 g/dL (6.4-8.2)
[2021-03-07 09:30] LABS: Diff Comment Diff Reviewed; Platelet Count 69 10^3/uL (130-400); RBC Morphology Normal
[2021-03-07] MEDS: Normal Saline Flush 10 ML SYR IVP (09:37)
[2021-03-14 09:02] LABS: Abs Immature Grans 0.23 10^3/uL (0.0-0.06); Absolute Lymphocyte Count 0.11 10^3/uL (1.2-3.4); Absolute Monocyte Count 0.36 10^3/uL (0.1-0.8); HCT 31.8 % (36.0-46.0); HGB 11.3 g/dL (11.2-15.7); Immature Grans % 4.4; Lymphocytes % 2.1; MCH 31.6 pg (27.0-33.0); MCHC 35.5 % (32.0-36.0); MCV 88.8 fL (80-95); MPV 11.6 fL (8.0-11.0); Monocytes % 6.9; Neutrophils % 86.6; Nucleated RBC 0 %; Platelet Count 76 10^3/uL (130-400); RBC 3.58 10^6/uL (3.93-5.22); RDW 13.7 % (11.7-14.6); RDW-SD 44.7 fL
[2021-03-14 09:16] LABS: ALT 30 U/L (14-59); AST 10 U/L (15-37); Albumin 3.8 g/dL (3.4-5.0); Alkaline Phosphatase 137 U/L (46-116); Anion Gap 10.6 mmol/L (3-11); BUN 24 mg/dL (7-18); Bilirubin, Total 0.4 mg/dL (0.2-1.0); CO2 28.4 mmol/L (21.0-32.0); CREATININE 0.9 mg/dL (0.55-1.02); Calcium 9.4 mg/dL (8.5-10.1); Chloride 99 mmol/L (98-107); Glucose 328 mg/dL (74-106); LDH 233 U/L (81-234); Potassium 3.9 mmol/L (3.5-5.1); Sodium 138 mmol/L (136-145); Total Protein 6.6 g/dL (6.4-8.2)
[2021-03-14 09:24] LABS: Basophilic Stippling Present; Diff Comment PLT Morph Reviewed
[2021-03-14] MEDS: Heparin 500 UNITS/5 ML SYRINGE IV (09:26)
[2021-03-14] MEDS: Normal Saline Flush 10 ML SYR IVP (09:26)
== END 2021-03-19 23:59 | disposition home or self-care (01) ==
LOC: INF 01:31
PROVIDERS: PCP Physician Assistant; Visit Provider Internal Medicine Hematology & Oncology
DX: C82.98 Follicular lymphoma, unspecified, lymph nodes of multiple sites (principal); Z45.2 Encounter for adjustment and management of vascular access device
CPT/HCPCS: 36591; 80053; 86900; 86901; 81025; 83615; 85025

== ENCOUNTER 2021-03-21 01:55 | Outpatient (RCR) | payer MEDICAID, SELFPAY ==
[2021-03-20 00:24] VITALS: BP 114/78; PULSE 87; RESP 16; TEMP 36.7
[2021-03-21] MEDS: Normal Saline Flush 10 ML SYR IVP (08:25)
[2021-03-21 09:04] LABS: Abs Immature Grans 0.07 10^3/uL (0.0-0.06); Absolute Eosinophil Count 0.01 10^3/uL (0.0-0.7); Absolute Monocyte Count 0.27 10^3/uL (0.1-0.8); Absolute Neutrophil Count 2.13 10^3/uL (1.2-6.7); Eosinophils % 0.4; HCT 33.2 % (36.0-46.0); HGB 11.5 g/dL (11.2-15.7); Immature Grans % 2.7; Lymphocytes % 3.9; MCH 30.3 pg (27.0-33.0); MCHC 34.6 % (32.0-36.0); MCV 87.4 fL (80-95); MPV 12.6 fL (8.0-11.0); Monocytes % 10.5; Neutrophils % 82.5; Nucleated RBC 0 %; Platelet Count 82 10^3/uL (130-400); RDW 13.2 % (11.7-14.6); RDW-SD 41.5 fL; WBC 2.58 10^3/uL (4.4-10.8)
[2021-03-21 09:17] LABS: ALT 39 U/L (14-59); AST 14 U/L (15-37); Albumin 3.4 g/dL (3.4-5.0); Alkaline Phosphatase 131 U/L (46-116); Anion Gap 11.8 mmol/L (3-11); BUN 21 mg/dL (7-18); Bilirubin, Total 0.5 mg/dL (0.2-1.0); CO2 25.2 mmol/L (21.0-32.0); CREATININE 0.9 mg/dL (0.55-1.02); Calcium 9.2 mg/dL (8.5-10.1); Chloride 99 mmol/L (98-107); Glucose 359 mg/dL (74-106); LDH 360 U/L (81-234); Potassium 3.9 mmol/L (3.5-5.1); Sodium 136 mmol/L (136-145); Total Protein 6.1 g/dL (6.4-8.2)
[2021-03-21 09:25] LABS: Diff Comment Diff Reviewed; RBC Morphology Normal
== END 2021-04-19 23:59 | disposition home or self-care (01) ==
LOC: INF 01:55
PROVIDERS: PCP Physician Assistant; Visit Provider Internal Medicine Hematology & Oncology
DX: C82.98 Follicular lymphoma, unspecified, lymph nodes of multiple sites (principal); Z45.2 Encounter for adjustment and management of vascular access device
CPT/HCPCS: 36591; 80053; 86900; 86901; 83615; 85025

== ENCOUNTER 2021-03-22 03:11 | Outpatient (CLI) | payer MEDICAID, SELFPAY ==
[2021-03-22 11:21] LABS: Source Nasal/Nares
[2021-03-22 13:12] LABS: COVID-19 PCR Negative (Negative)
== END 2021-03-22 03:12 | disposition home or self-care (01) ==
PROVIDERS: PCP Physician Assistant; Visit Provider Internal Medicine Hematology & Oncology
DX: Z20.822 Contact with and (suspected) exposure to COVID-19 (principal); Z01.818 Encounter for other preprocedural examination
CPT/HCPCS: 87635

== ENCOUNTER 2021-05-14 08:14 | Inpatient (IN) | payer MEDICAID, SELFPAY ==
[2021-05-14] VITALS (43 sets, daily range): BP systolic 85–127; BP diastolic 63–93; PULSE 107–138; RESP 11–30; TEMP 36–36.9; O2SAT 91–97
--- NOTE | 2021-05-14 08:30 | ED.GENADUL_ITS ---
Discharge Plan Disposition Patient Disposition: [facility] INPATIENT Condition: Poor Discharge Details Chief Complaint: GenMedical Clinical Impression: Lumbar compression fracture Admit Date/Time: 05/14/21 11:23 Admit Provider: Gerard Lucio Attending Provider: Gerard Lucio Primary Care Provider: David West ED Provider: Charisma Gordon Discharge Instructions Activity:: Activity as Tolerated Equipment/Supplies:: No Equipment Needed Diet:: resume usual diet Discharge Orders Discharge Orders: Discharge Order (Routine); Ordered 05/16/21 Ordered By: Gerard Lucio Discharge Data Discharge Date/Time-TO BE ENTERED AT DEPARTURE: 05/14/21 13:21 Medical Decision Making Patient is a pleasant 51-year-old female presenting today with diffuse pain, maximal in the lumbar spine. Patient brought in via EMS. Patient reports that clinically treated for lymphoma. Was recently diagnosed with a pathologic fracture of the right shoulder. However, she states that while this is uncomfortable the maximal amount of pain is in the lower aspect of her back. No nradiating. Patient reports that she has been hospitalized multitude of times over the summer secondary to severity of pain. She denies any fevers or chills. States that she has had difficulty with ambulation secondary to the pain in her back but has not had any weakness. No change in bowel or bladder habit. She denies any recent fall or other trauma. Patient reports that she began new treatment for cancer yesterday. [facility] oncology team. On exam, patient appears uncomfortable and chronically ill. She has no focal area tenderness. She does have significant pain when moving her lower remedies but no notable weakness on exam. Lungs are clear. Normal cardiac auscultation. Reviewed recent note from [facility] oncology team. There is concern of the patient was having comfort and using more of her immediate release morphine which correlates with patient's story. She has been using 2 MSIR 15 mg twice a day and during the night for shoulder pain. Also taking MS Contin 60 mg every 12. Patient was being seen for infusion of Polatuzumab and was given 20 mg oxycodone for break through pain. The provider at that time recommended using MS Contin 60 mg every 8 hours instead of every 12 with a goal to reduce the amount of immediate release morphine as needed. Her MS IR 15 mg were refilled at that time, note dated 05/13/2021. Patient has history of myelodysplastic syndrome, follicular lymphoma. Reviewed note from patient evaluation with her oncologist, Dr. Pappas from 3 days ago. Mr. Peck notes that patient was admitted at [facility] for almost 6 weeks with discharge about 2 weeks ago. Patient was immediately readmitted with pain. At that time, patient was found to have rapidly progressive lymphoma in the right shoulder with pathological fracture. No biopsy was completed showing diffuse large B-cell lymphoma. Patient underwent radiation for right shoulder mass. When she was evaluated 3 days ago, her pain was improving although still significant and patient was using lower dose of MS Contin. This is in contrast to visit to the previously noted evaluation from yesterday. Patient given your micrograms dosing fentanyl with good improvement. Will obtain CT to evaluate pathologic fracture given the patient's history and new onset of discomfort in her lumbar spine. Plan to consult with her oncology team to discuss potential fentanyl patches as this seems to be working well for her. Contacted by [facility]. Radiologist advises acute compression fracture at L1. Notes that the chest masses are much worse than previous images compared to those completed here in February. Discussed findings with the patient, will consult with oncology at [facility]. Spoke with the patient regarding imaging finding. Her pain is still having difficulty being controlled despite Fentanyl and Dilaudid. She is agreeable to admission. Will also consult with hospitalist. FINDINGS: Tubes, catheters and devices: Partially imaged body of a port catheter in the right chest. Tip of the port in the SVC. Vertebrae: Multilevel spondylosis. Superior endplate fracture of L1 with approximately 3 mm of superior endplate prolapse. Scattered small sclerotic osseous lesions, such as posteriorly inferiorly at T7. Another similar lesion in L3 vertebral body. Discs/Spinal canal/Neural foramina: Sub endplate sclerosis at multiple levels, most pronounced inferiorly at T7. No significant canal or neural foraminal narrowing. Soft tissues: New large infiltrative tissue density throughout the partially imaged base of the right neck/upper thorax measuring at least 8 cm in diameter worrisome for malignant infiltration. Lymph nodes: Pathologic enlargement of paratracheal lymphadenopathy. Right paratracheal mediastinal node measures 2.1 x 2.0 cm on series 4, image 23. Lungs: Right hilar confluent poorly defined mass measures approximately 4.1 cm in diameter with narrowing of the upper lobe airways, compatible with malignant lymphadenopathy. Similar-appearing enlargement of left hilar lymphadenopathy. Prominent subcarinal lymphadenopathy, also increased. Consolidation in the right upper lobe perihilar region probably related to postobstructive pneumonia, atelectasis, malignant infiltration, or combination thereof. New 6 mm left upper lobe nodule on image 52. Innumerable multiple large nodules in the left lower lung measuring up to 1.6 cm. Pleural spaces: Moderate to large layering right pleural effusion is partially imaged, new since 02/17/2021. IMPRESSION: 1. New large infiltrative tissue density throughout the partially imaged base of the right neck/upper thorax measuring at least 8 cm in diameter worrisome for malignant infiltration. Presence of hemorrhage is difficult to exclude on this study. 2. Significantly enlarged paratracheal , subcarinal, and bilateral hilar lymph adenopathy concerning worrisome for malignancy progression. 3. Consolidation in the right upper lobe perihilar region probably related to postobstructive pneumonia, atelectasis, malignant infiltration, or combination thereof. 4. Multiple new pulmonary nodules measuring up to 1.6 cm compatible with pulmonary metastatic disease. 5. Superior endplate fracture of L1 with approximately 3 mm of superior endplate prolapse. Appearance suggests acuity. MRI can be obtained to better define. 6. Scattered small sclerotic osseous lesions, such as posteriorly inferiorly at T7. Another similar lesion in L3 vertebral body. Cannot exclude that these represent osseous metastatic disease. 7. Above findings can be better assessed with repeat chest CT, preferably with intravenous contrast. Vertebrae: Superior endplate fracture of L1 with approximately 3 mm of superior endplate prolapse. Indeterminate subcentimeter sclerotic lesion in the L3 vertebral body. In the setting of malignancy, cannot exclude that this represents osseous metastatic disease. Discs/Spinal canal/Neural foramina: No significant disc protrusion. No severe spinal canal stenosis. No significant neural foraminal narrowing. Gallbladder and bile ducts: Surgical clips are noted at the right upper quadrant consistent with previous cholecystectomy. Vasculature: Aortic and branch vessel atherosclerosis. Lymph nodes: Pathologically enlarged lymphadenopathy throughout the retroperitoneum extending along the iliac chains and enlarged pelvic nodes compatible with malignancy. Soft tissues: Unremarkable. IMPRESSION: 1. Superior endplate fracture of L1 with approximately 3 mm of superior endplate prolapse. This can be further assessed with MRI. 2. Indeterminate subcentimeter sclerotic lesion in the L3 vertebral body. In the setting of malignancy, cannot exclude that this represents osseous metastatic disease. 3. Pathologically enlarged lymphadenopathy throughout the retroperitoneum extending along the iliac chains and enlarged pelvic nodes compatible with malignancy. This was also seen on the prior study from August. Labs reviewed none. Well at 2.04. Patient has baseline anemia with a hemoglobin of 8.4. Slight elevation of AST which is baseline for the patient. Consulted with Dr. Mccartney with oncology. She recommends holding off of the fentanyl patches at this time . She advised 24 hours he morphine equivalent. Did advise that we could use the fentanyl IUD in the interim. Is hoping that this will ultimately lead to improved dosing and pain management. I discussed admission with the patient. She continued to have significant discomfort despite being dosed with fentanyl as well as Dilaudid, I feel that inpatient admission for continued pain management is appropriate. Consulted with Dr. Talamantes who agrees to admission. HPI General Mode of arrival: EMS . Date/Time Provider Initiated Documentation: 05/14/21 08:21 . Limitations to Documentation: no limitations . Information obtained by: patient, EMS, RN notes reviewed and old records reviewed . History of Present Illness 51 year old F presents to the emergency department with the chief complaint of diffuse pain, maximal lumbar spine, [place] cribed as severe and similar to prior episodes (acute on chronic pain associated with cancer), with intensity rated at >10. Quality is described as stabbing, and is localized to the back. Patient started experiencing this day(s) (chronic pain, this increase began yesterday) and it has been constant. Immobilization improves symptom(s), Movement worsens symptoms . Patient notes no other symptoms.. Patient did receive the following treatments prior to arrival, other (ER morphine) Related Data Home Medications Medication Instructions Recorded Confirmed acyclovir 400 mg PO BID 11/21/20 05/14/21 loratadine [Claritin] 10 mg PO DAILY 11/21/20 05/14/21 sertraline 50 mg PO DAILY 11/21/20 05/14/21 ondansetron HCl 8 mg PO PRN PRN 11/22/20 05/14/21 apixaban 5 mg tablet 5 mg PO BID 05/05/21 05/14/21 dexamethasone 4 mg tablet 4 mg PO DAILY tab 05/05/21 05/14/21 metformin 500 mg tablet 500 mg PO BID 05/05/21 05/14/21 omeprazole 40 mg capsule,delayed 40 mg PO DAILY 05/05/21 05/14/21 release allopurinol 300 mg PO DAILY 05/14/21 05/14/21 diclofenac sodium 1 applic TOPICAL DIRECTED PRN 05/14/21 05/14/21 ergocalciferol (vitamin D2) 50,000 unit PO QWEEK 05/14/21 05/14/21 lactulose 30 g PO DAILY PRN 05/14/21 05/14/21 lorazepam [Ativan] 0.5 mg PO TID PRN 05/14/21 05/14/21 morphine 15 mg PO Q4H PRN 05/14/21 05/14/21 morphine 60 mg PO BID 05/14/21 05/14/21 baclofen 10 mg PO HS #15 tab 05/16/21 Previous Rx's Medication Instructions Recorded baclofen 10 mg PO HS #15 tab 05/16/21 Allergies Allergy/AdvReac Type Severity Reaction Status Date / Time acetaminophen Allergy Verified 05/14/21 09:36 latex Allergy Verified 05/14/21 09:36 NSAIDS (Non-Steroidal Allergy Unverified 05/14/21 11:14 Anti-Inflamma Penicillins Allergy Verified 05/14/21 09:36 red blood cells AdvReac Uncoded 05/14/21 09:36 General Stated Complaint: GenMedical SANDI: 2 Review of Systems Constitutional Constitutional: Reports as per HPI, Denies chills, Reports fatigue, Denies fever(s), Denies frequent falls and Denies headache(s) ENT Ears, Nose, Mouth, and Throat: Denies headache(s) Cardiovascular Cardiovascular: Denies chest pain and Denies dyspnea Respiratory Respiratory: Denies cough and Denies dyspnea Gastrointestinal Gastrointestinal: Denies abdominal pain, Denies change in bowel habits and Denies fecal incontinence Genitourinary Genitourinary: Reports as per HPI, Denies urinary incontinence and Denies urinary hesitancy Musculoskeletal Musculoskeletal: Reports as per HPI, Reports back pain, Denies muscle weakness, Denies numbness, Denies radiating pain into limb, Reports stiffness and Reports tingling (states that her pain starts with tingling) Integumentary/Breasts Skin/Breast: Reports as per HPI and Denies rash Neurologic Neurologic: Reports as per HPI, Denies frequent falls, Denies headache(s), Denies localized weakness, Denies numbness, Denies radicular pain, Denies sensory deficit, Reports tingling (states that her pain starts with tingling) and Denies paresthesias Endocrine Endocrine: Reports fatigue [facility] Medical History Anxiety Diabetes Follicular lymphoma Fracture of middle phalanx of right middle finger (~02/01/20) Myelodysplastic syndrome Neutropenic fever Non-Hodgkin lymphoma Thrombocytopenia Type 2 diabetes mellitus Surgical History H/O autologous stem cell transplant Hx of biopsy Hx of cholecystectomy Hx of dilation and curettage Family History Mother Breast cancer Father Cancer pancreatic Brother Psoriasis Psoriatic arthritis Maternal Grandfather Breast cancer Other Diabetes Social History Smoking/Tobacco Use Status: Former Tobacco Use Smoking risk assessment performed?: Yes Alcohol Intake: never Drug use: Occasionally Substance use type: marijuana Details: edibles Household members: significant other 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 Pets and animals: Yes Pets and animals: dog(s) and other Details: pig Do you feel safe at home: Yes Do you feel safe in your relationship?: Yes Exam Const General: cooperative, uncomfortable, no acute distress, well developed, well groomed and ill appearing chronically Nutritional Appearance: well nourished and obese Orientation: alert and awake Eyes General: appearance normal, both eyes and all related structures Neck Neck: normal visual inspection, full ROM and no meningeal signs Resp Effort & Inspection: normal respiratory effort and able to speak in complete sentences Auscultation: clear to auscultation bilaterally, no rales, no rhonchi and no wheezes Cardio Rate: regular rate Rhythm: regular rhythm Heart Sounds: S1 normal and S2 normal GI Inspection: normal to inspection Palpation: soft, not rigid and nontender Back/Spine/Pelvis Back: no CVA tenderness Cervical Spine: normal cervical lordosis Thoracic/Lumbar Spine: thoracic and lumbar spine normal to inspection, No mass, No paraspinal tenderness, thoraco-lumbar ROM limited (no focal pain, severe pain diffusely with any movement), No thoracic spinal tenderness and No lumbar spinal tenderness Skin General skin exam: no rashes or lesions noted Neuro General: patient alert and patient awake Cognition: normal cognition Speech: speech normal Motor: muscle tone normal throughout, strength 5/5 throughout, no movement abnormalities noted and no fasciculations Sensory Exam: no sensory deficits noted (no saddle paresthesias) Extrem General: normal to inspection, full ROM, capillary refill normal, no joint enlargement, no pedal edema and no calf tenderness Psych Appearance: grossly normal and well kempt Mental Status: mental status grossly normal Speech and Movement: speech and movement normal Course Vital Signs Vital signs: Vital Signs Temperature 36.2 C L 05/14/21 08:16 Pulse 112 H 05/14/21 08:16 Pulse Oximetry 95 05/14/21 08:16 Temperature 36.2 C L 05/14/21 08:16 Temperature Source Temporal Artery Scan 05/14/21 08:16 Pulse 112 H 05/14/21 08:16 Blood Pressure Position Sitting 05/14/21 08:16 Pulse Oximetry 95 05/14/21 08:16 Oxygen Delivery Method Room Air 05/14/21 08:16 Oxygen Flow Rate 0 05/14/21 08:16 Pain Level 10 05/14/21 08:16
[2021-05-14] MEDS: Normal Saline Flush 10 ML SYR IVP ×5 (08:48→19:56)
[2021-05-14] MEDS: fentaNYL 100 MCG/2 ML VIAL IVP ×4 (08:48→19:55)
[2021-05-14] MEDS: Normal Saline-STERILE FIELD 0.9% 10 ML SYR (08:51)
--- NOTE | 2021-05-14 09:54 | DI.CT_ITS ---
Exam(s) CT THORACIC LUMBAR SPINE WO EXAM: CT THORACIC LUMBAR SPINE WO CLINICAL HISTORY: diffuse severe pain, max lumbar spine. TECHNIQUE: Imaging Protocol: Axial computed tomography images with coronal and sagittal reformatted images were created and reviewed. CONTRAST MATERIAL: Intravenous: None COMPARISON: No exams were available for comparison FINDINGS: THORACIC SPINAL COLUMN: There is a prominent size right pleural effusion. No pleural effusions seen on the left side althoug h there are multiple metastatic appearing nodules in the partially visualized left lung field. There also appear to be nodules subjacent to pleural effusion on the right side. There is no evidence of compression fracture in the thoracic vertebrae. Hyperdense line is noted in the inferior aspect of the T6 vertebral body and a lesser amount of the same is seen at the inferior endplate of T4. There is no height loss nor Schmorl's node invagination is at these levels. No disc space narrowing. No facet arthropathy nor facet malalignment. No scoliosis. There are no obvious disc herniations in the thoracic spinal column. No central spinal canal stenosi s. LUMBOSACRAL SPINAL COLUMN: No evidence of obvious fracture or listhesis. However, there is slight indentation of the superior e ndplate of L1 vertebral body, possibly significant. No pars defects. No disc space narrowing. No p rominent facet arthropathy. No osseous lesions evident. Visualized sacroiliac joints appear unremar kable. No obvious abnormality in the sacral canal. There is mild central spinal canal stenosis at L4-5 level mostly related to short AP dimensions of th e pedicles. At L5-S1 level there is asymmetric posterolateral right annular bulging. Central canal dimensions are lower normal. No prominent foraminal stenosis. SOFT TISSUES: Paraspinal soft tissues appear unremarkable. IMPRESSION: 1. No compression fractures of the thoracic vertebra bodies. There is, however, slight indentation o f the superior endplate of L1. This may be an early compression fracture. No retropulsed cortex. 2. No lytic osseous lesions identified. Sclerotic line in the inferior aspect of T6 vertebral body noted, of questionable significance. 3. Large right pleural effusion. Metastatic appearing lung nodules incidentally noted in the field of view of this study. RADIATION DOSE DELIVERED: 1,743.91mGy.cm Total DLP DATA REPOSITORY: All CT scans at this facility are submitted to the National Radiology Data Registry (NRDR) Dose Index Registry (DIR) with the [employer] (ACR). RADIATION OPTIMIZATION: All CT scans at this facility use at least one of these dose optimization te chniques: automated exposure control; mA and/or kV adjustment per patient size (includes targeted exa ms where dose is matched to clinical indication); or iterative reconstruction.
[2021-05-14] MEDS: HYDROmorphone 2 MG/ML VIAL IVP (10:47)
[2021-05-14 10:56] LABS: HCT 24.4 % (36.0-46.0); HGB 8.4 g/dL (11.2-15.7); MCH 33.5 pg (27.0-33.0); MCHC 34.4 % (32.0-36.0); MCV 97.2 fL (80-95); RBC 2.51 10^6/uL (3.93-5.22); RDW 20.9 % (11.7-14.6); RDW-SD 71.2 fL; WBC 2.04 10^3/uL (4.4-10.8)
--- NOTE | 2021-05-14 11:01 | DI.VRAD_ITS ---
PROCEDURE INFORMATION: Exam: CT Thoracic Spine Without Contrast Exam date and time: 05/14/2021 9:24 AM Age: 51 years old Clinical indication: Low back pain; Pain in thoracic spine; Additional info: Tumorous R shoulder joint per PT. No known trauma, severe back pain. TECHNIQUE: Imaging protocol: Computed tomography images of the thoracic spine without contrast. Radiation optimization: All CT scans at this facility use at least one of these dose optimization techniques: automated exposure control; mA and/or kV adjustment per patient size (includes targeted exams where dose is matched to clinical indication); or iterative reconstruction. COMPARISON: CT CHEST W 02/17/2021 1:24 PM FINDINGS: Tubes, catheters and devices: Partially imaged body of a port catheter in the right chest. Tip of the port in the SVC. Vertebrae: Multilevel spondylosis. Superior endplate fracture of L1 with approximately 3 mm of superior endplate prolapse. Scattered small sclerotic osseous lesions, such as posteriorly inferiorly at T7. Another similar lesion in L3 vertebral body. Discs/Spinal canal/Neural foramina: Sub endplate sclerosis at multiple levels, most pronounced inferiorly at T7. No significant canal or neural foraminal narrowing. Soft tissues: New large infiltrative tissue density throughout the partially imaged base of the right neck/upper thorax measuring at least 8 cm in diameter worrisome for malignant infiltration. Lymph nodes: Pathologic enlargement of paratracheal lymphadenopathy. Right paratracheal mediastinal node measures 2.1 x 2.0 cm on series 4, image 23. Lungs: Right hilar confluent poorly defined mass measures approximately 4.1 cm in diameter with narrowing of the upper lobe airways, compatible with malignant lymphadenopathy. Similar-appearing enlargement of left hilar lymphadenopathy. Prominent subcarinal lymphadenopathy, also increased. Consolidation in the right upper lobe perihilar region probably related to postobstructive pneumonia, atelectasis, malignant infiltration, or combination thereof. New 6 mm left upper lobe nodule on image 52. Innumerable multiple large nodules in the left lower lung measuring up to 1.6 cm. Pleural spaces: Moderate to large layering right pleural effusion is partially imaged, new since 02/17/2021. IMPRESSION: 1. New large infiltrative tissue density throughout the partially imaged base of the right neck/upper thorax measuring at least 8 cm in diameter worrisome for malignant infiltration. Presence of hemorrhage is difficult to exclude on this study. 2. Significantly enlarged paratracheal , subcarinal, and bilateral hilar lymphadenopathy concerning worrisome for malignancy progression. 3. Consolidation in the right upper lobe perihilar region probably related to postobstructive pneumonia, atelectasis, malignant infiltration, or combination thereof. 4. Multiple new pulmonary nodules measuring up to 1.6 cm compatible with pulmonary metastatic disease. 5. Superior endplate fracture of L1 with approximately 3 mm of superior endplate prolapse. Appearance suggests acuity. MRI can be obtained to better define. 6. Scattered small sclerotic osseous lesions, such as posteriorly inferiorly at T7. Another similar lesion in L3 vertebral body. Cannot exclude that these represent osseous metastatic disease. 7. Above findings can be better assessed with repeat chest CT, preferably with intravenous contrast. THIS REPORT CONTAINS FINDINGS THAT MAY BE CRITICAL TO PATIENT CARE. The findings were verbally communicated via telephone conference with BHARGAV ABURTO at 10:58 AM EDT on 05/14/2021. The findings were acknowledged and understood. PROCEDURE INFORMATION: Exam: CT Lumbar Spine Without Contrast Exam date and time: 05/14/2021 9:24 AM Age: 51 years old Clinical indication: Low back pain; Pain in thoracic spine; Additional info: Tumorous R shoulder joint per PT. No known trauma, severe back pain. TECHNIQUE: Imaging protocol: Computed tomography images of the lumbar spine without contrast. Radiation optimization: All CT scans at this facility use at least one of these dose optimization techniques: automated exposure control; mA and/or kV adjustment per patient size (includes targeted exams where dose is matched to clinical indication); or iterative reconstruction. COMPARISON: CT CHEST W 02/17/2021 1:24 PM FINDINGS: Vertebrae: Superior endplate fracture of L1 with approximately 3 mm of superior endplate prolapse. Indeterminate subcentimeter sclerotic lesion in the L3 vertebral body. In the setting of malignancy, cannot exclude that this represents osseous metastatic disease. Discs/Spinal canal/Neural foramina: No significant disc protrusion. No severe spinal canal stenosis. No significant neural foraminal narrowing. Gallbladder and bile ducts: Surgical clips are noted at the right upper quadrant consistent with previous cholecystectomy. Vasculature: Aortic and branch vessel atherosclerosis. Lymph nodes: Pathologically enlarged lymphadenopathy throughout the retroperitoneum extending along the iliac chains and enlarged pelvic nodes compatible with malignancy. Soft tissues: Unremarkable. IMPRESSION: 1. Superior endplate fracture of L1 with approximately 3 mm of superior endplate prolapse. This can be further assessed with MRI. 2. Indeterminate subcentimeter sclerotic lesion in the L3 vertebral body. In the setting of malignancy, cannot exclude that this represents osseous metastatic disease. 3. Pathologically enlarged lymphadenopathy throughout the retroperitoneum extending along the iliac chains and enlarged pelvic nodes compatible with malignancy. This was also seen on the prior study from August. THIS REPORT CONTAINS FINDINGS THAT MAY BE CRITICAL TO PATIENT CARE. The findings were verbally communicated via telephone conference with BHARGAV ABURTO at 10:58 AM EDT on 05/14/2021. The findings were acknowledged and understood. Dictated and Authenticated by: Darryl Tidwell MD. Ordering:ROSEANNA Zafar MD
[2021-05-14 11:08] LABS: Platelet Count 56 10^3/uL (130-400)
[2021-05-14 11:09] LABS: ALT 18 U/L (14-59); AST 63 U/L (15-37); Alkaline Phosphatase 104 U/L (46-116); Anion Gap 8.8 mmol/L (3-11); BUN 17 mg/dL (7-18); CO2 27.2 mmol/L (21.0-32.0); CREATININE 0.8 mg/dL (0.55-1.02); Calcium 9.9 mg/dL (8.5-10.1); Chloride 104 mmol/L (98-107); Glucose 152 mg/dL (74-106); Potassium 3.9 mmol/L (3.5-5.1); Sodium 140 mmol/L (136-145); Total Protein 5.4 g/dL (6.4-8.2)
[2021-05-14] MEDS: Lactated Ringers 1,000 ML 250 ML IV (11:35)
[2021-05-14 11:57] LABS: Source Nasal/Nares
[2021-05-14] MEDS: metFORMIN 500 MG TAB PO ×2 (12:40→18:00)
[2021-05-14] MEDS: Omeprazole 20 MG CAPCR 40 MG PO (12:41)
[2021-05-14] MEDS: Apixaban 5 MG TAB PO ×2 (12:41→19:56)
[2021-05-14] MEDS: Sertraline 50 MG TAB PO (12:42)
[2021-05-14 14:32] LABS: COVID-19 PCR Negative (Negative)
--- NOTE | 2021-05-14 14:38 | W.PM.HP.N ---
Date of service: 05/14/21 Time of Service: 14:38 Assessment and Plan Assessment and plan (1) Type 2 diabetes mellitus: Status: Acute Assessment and plan: Cont Metformin and diabetic diet. (2) Follicular lymphoma: Status: Acute Assessment and plan: Advanced and s/p first infusion of Polatuzumab. + leukopenia with ANC of 950. + thrombocytopenia with platelets of 56. Hgb 8.8 > 8.4 Monitor CBC and for signs of infection, bleeding. (3) Lumbar compression fracture: Status: Acute Assessment and plan: Pain management. Per recommendation of her oncology team, will increase MS Contin to 60mg TID (from BID). PRN IV fentanyl. Lidoderm patches (2) to lumbar region. Baclofen 10mg po TID. Appears to have generalized myofascial pain/muscle spasms in the lumbar region. PT. History of Present Illness History of Present Illness Chief Complaint: low back pain Narrative: This is a 51 yo femal with a PMH of Non-Hodgkins small cell follicular lymphoma, Large B cell lymphoma, MDS that presented to the ED with stabbing lumbar region back pain. She has chronic diffuse joint/back pain secondary to her cancer and has spent 6 weeks recently at [facility], discharged appx 2 weeks ago, then re-admitted. She was found to have rapidly progressive lymphoma and she was recently started on a new chemotx medication Polatuzumab. During the recent hospitalization she was noted to have a pathologic fracture in the R shoulder. ED physician spoke with [facility] [place] [place] oncology and they suggested increasing her MS Contin 60mg to TID. IV fentanyl given in the ED with good results. She denies abd pain/constipation, dysuria/frequency, F/C. Admitted for pain management. Review of Systems All systems reviewed & are unremarkable except as noted in HPI and below PFSH Medical History Anxiety Diabetes Follicular lymphoma Fracture of middle phalanx of right middle finger (~02/01/20) Myelodysplastic syndrome Neutropenic fever Non-Hodgkin lymphoma Thrombocytopenia Type 2 diabetes mellitus Surgical History H/O autologous stem cell transplant Hx of biopsy Hx of cholecystectomy Hx of dilation and curettage Family History Mother Breast cancer Father Cancer pancreatic Brother Psoriasis Psoriatic arthritis Maternal Grandfather Breast cancer Other Diabetes Social History Smoking/Tobacco Use Status: Former Tobacco Use Smoking risk assessment performed?: Yes Alcohol Intake: never Drug use: Occasionally Substance use type: marijuana Details: edibles Household members: significant other 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 Pets and animals: Yes Pets and animals: dog(s) and other Details: pig Do you feel safe at home: Yes Do you feel safe in your relationship?: Yes Meds Allergies and Home Medications Allergies Allergy/AdvReac Type Severity Reaction Status Date / Time acetaminophen Allergy Verified 05/14/21 09:36 latex Allergy Verified 05/14/21 09:36 NSAIDS (Non-Steroidal Allergy Unverified 05/14/21 11:14 Anti-Inflamma Penicillins Allergy Verified 05/14/21 09:36 red blood cells AdvReac Uncoded 05/14/21 09:36 Home Medications Medication Instructions Recorded Confirmed Type acyclovir 400 mg PO BID 11/21/20 05/14/21 History loratadine [Claritin] 10 mg PO DAILY 11/21/20 05/14/21 History sertraline 50 mg PO DAILY 11/21/20 05/14/21 History ondansetron HCl 8 mg PO PRN PRN 11/22/20 05/14/21 History apixaban 5 mg tablet 5 mg PO BID 05/05/21 05/14/21 History dexamethasone 4 mg tablet 4 mg PO DAILY tab 05/05/21 05/14/21 History metformin 500 mg tablet 500 mg PO BID 05/05/21 05/14/21 History omeprazole 40 mg capsule,delayed 40 mg PO DAILY 05/05/21 05/14/21 History release allopurinol 300 mg PO DAILY 05/14/21 05/14/21 History diclofenac sodium 1 applic TOPICAL DIRECTED PRN 05/14/21 05/14/21 History ergocalciferol (vitamin D2) 50,000 unit PO QWEEK 05/14/21 05/14/21 History lactulose 30 g PO DAILY PRN 05/14/21 05/14/21 History lorazepam [Ativan] 0.5 mg PO TID PRN 05/14/21 05/14/21 History morphine 60 mg PO BID 05/14/21 05/14/21 History morphine [MSir] 15 mg PO Q4H PRN 05/14/21 05/14/21 History Exam Const General: cooperative and acute distress moderate Nutritional Appearance: obese Orientation: alert and oriented x3 HENMT Head: normocephalic and atraumatic Resp Effort & Inspection: normal respiratory effort Auscultation: clear to auscultation bilaterally Cardio Rate: regular rate Rhythm: regular rhythm Heart Sounds: S1 normal and S2 normal GI Palpation: soft and nontender Back/Spine/Pelvis Back: back tenderness (Lumbar pain with movement. No point tenderness.) Neuro General: moves all extremities Cognition: normal cognition Speech: speech normal Extrem General: no pedal edema and no calf tenderness Results Labs Result diagrams: 05/14/21 10:45 05/14/21 10:45 Labs: Laboratory Results - last 24 hr 05/14/21 05/14/21 05/14/21 10:45 10:45 11:46 WBC 2.04 L RBC 2.51 L Hgb 8.4 L Hct 24.4 L MCV 97.2 H MCH 33.5 H MCHC 34.4 RDW 20.9 H Plt Count 56 L MPV 12.0 H Sodium 140 Potassium 3.9 Chloride 104 Carbon Dioxide 27.2 Anion Gap 8.8 BUN 17 Creatinine 0.8 Estimated GFR/1.73 m2 >= 60.00 Glucose 152 H Calcium 9.9 Total Bilirubin 1.0 AST 63 H ALT 18 Alkaline Phosphatase 104 Total Protein 5.4 L Albumin 3.0 L COVID-19 Source Nasal/Nares SARS-CoV-2 (PCR) Negative Last Vital Signs Temp 36.9 C 05/14/21 13:39 Pulse 115 H 05/14/21 13:39 Resp 18 05/14/21 13:39 BP 106/71 05/14/21 13:39 Pulse Ox 93 05/14/21 13:39
[2021-05-14] MEDS: Baclofen 10 MG TAB PO ×2 (15:37→19:56)
[2021-05-14] MEDS: Lidocaine 5% Patch 2 PATCH TP (15:37)
[2021-05-14] MEDS: Acyclovir 400 MG TAB PO (19:56)
[2021-05-14] MEDS: LORazepam 0.5 MG TAB PO (20:26)
[2021-05-14] MEDS: Lidocaine Patch Removal 2 EACH TP (22:00)
[2021-05-14] MEDS: Lactated Ringers 500 ML IV (22:05)
[2021-05-14] MEDS: Lactated Ringers 1,000 ML 75 ML IV (22:59)
[2021-05-15 03:55] VITALS: BP 102/71; PULSE 119; RESP 15; TEMP 36; O2SAT 93
[2021-05-15] MEDS: Lactated Ringers 1,000 ML 75 ML IV ×2 (05:49→20:39)
[2021-05-15 07:10] VITALS: PULSE 116
[2021-05-15 07:34] LABS: HCT 28.5 % (36.0-46.0); HGB 9.6 g/dL (11.2-15.7); MCHC 33.7 % (32.0-36.0); MCV 97.9 fL (80-95); MPV 11.1 fL (8.0-11.0); RBC 2.91 10^6/uL (3.93-5.22); RDW 21.3 % (11.7-14.6); RDW-SD 73.6 fL; WBC 2.77 10^3/uL (4.4-10.8)
[2021-05-15 07:52] LABS: Magnesium 1.8 mg/dL (1.8-2.4)
[2021-05-15 07:57] LABS: LDH 1578 U/L (81-234)
[2021-05-15 08:20] LABS: Platelet Count 69 10^3/uL (130-400)
[2021-05-15 08:21] LABS: Absolute Lymphocyte Count 0.19 10^3/uL (1.2-3.4); Absolute Monocyte Count 0.28 10^3/uL (0.1-0.8); Nucleated RBC 0 %
[2021-05-15 08:22] LABS: Anisocytosis 2+; Basophilic Stippling Present; Diff Comment Manual Differential; Macrocytosis 1+; Microcytosis 1+
--- NOTE | 2021-05-15 08:52 | INITIAL_ITS ---
- If Service Date Differs Date of service: 05/15/21 Time of Service: 08:55 Care Management Initial Assess REASON FOR HOSPITALIZATION:: Follicular Lymphoma, Lumbar compression fracture PAST MEDICAL HISTORY/PAST SURGICAL HISTORY:: Medical History . Anxiety. Diabetes. Follicular lymphoma. Fracture of middle phalanx of right middle finger (~02/01/20). Myelodysplastic syndrome. Neutropenic fever. Non-Hodgkin lymphoma. Thrombocytopenia. Type 2 diabetes mellitus. Surgical History . H/O autologous stem cell transplant. Hx of biopsy. Hx of cholecystectomy. Hx of dilation and curettage PREVIOUS FUNCTIONAL STATUS/SOCIAL/FAMILY SUPPORTS:: Radha lives with her mother and 2 dogs in [facility]. She is currently receiving treatment for Follicular Lymphoma. She does not drive or work due to her declining health since her cancer diagnosis. Her mother is supportive of her healthcare needs and transportation to and from appointments. Radha is independent in her ADLs and did not use any assistive devices before coming to the hospital, but is interested in getting a walker. CURRENT FUNCTIONAL STATUS:: Radha was lying in bed when CM met with her. She was awake and talking but closed her eyes mid conversation. Radha assured CM that she wasn't sleeping but had been very drowsy since she took the muscle relaxer last night. Radha reports that she is comfortable and denies pain. She was given a walker here and is hoping she can get one for home. CM will communicate request to PT. ADVANCE DIRECTIVES:: None on file Has patient been provided with info about the portal/API?: Yes Did the patient sign up for the portal?: No CODE STATUS:: Full Code INSURANCE COVERAGE / FINANCIAL ISSUES:: Medicaid CURRENT HOME/COMMUNITY SERVICES/EQUIPMENT:: None at this time, would like a walker PRIMARY CARE PHYSICIAN:: David West POTENTIAL DISCHARGE NEEDS:: Radha would like a walker for home PATIENT/FAMILY EDUCATION NEEDS:: Review discharge instructions, limitations and plan to follow up with community providers. ask me three. ANTICIPATED BARRIERS TO DISCHARGE:: Review discharge instructions, limitations and plan to follow up with community providers. ask me three. TRANSPORTATION:: Via private vehicle with family PLAN:: Anticipate Radha will discharge home with no new services when medically cleared by MD. She will transport via private vehicle with her mother and follow up with community providers.
[2021-05-15 10:14] VITALS: BP 99/62; PULSE 125; RESP 18; TEMP 36; O2SAT 96
[2021-05-15] MEDS: Loratidine 10 MG TAB PO (10:56)
[2021-05-15] MEDS: metFORMIN 500 MG TAB PO ×2 (10:56→17:57)
[2021-05-15] MEDS: Dexamethasone 4 MG TAB PO (10:56)
[2021-05-15] MEDS: Apixaban 5 MG TAB PO ×2 (10:56→20:39)
[2021-05-15] MEDS: Omeprazole 20 MG CAPCR 40 MG PO (10:56)
[2021-05-15] MEDS: Acyclovir 400 MG TAB PO ×2 (10:56→20:39)
[2021-05-15] MEDS: Allopurinol 300 MG TAB PO (10:57)
[2021-05-15] MEDS: Lidocaine 5% Patch 2 PATCH TP (10:57)
[2021-05-15] MEDS: Sertraline 50 MG TAB PO (10:57)
--- NOTE | 2021-05-15 12:07 | PT.INNT ---
PT Notes Visit Reasons: acute on chronic pain, LI compression fx lymphoma Attempted PT consultation x 3. On third attempt, patient was able to be roused for several brief interactions, falling back asleep each time. PT consult was deferred due to level of somnolence. Will attempt consultation tomorrow.
[2021-05-15 14:47] VITALS: PULSE 114
--- NOTE | 2021-05-15 14:55 | W.PM.PROGNOT ---
Date of Service Date of service: 05/15/21 Time of Service: 10:06 Assessment and Plan Assessment and plan (1) Type 2 diabetes mellitus: Status: Acute Assessment and plan: Cont Metformin and diabetic diet. (2) Follicular lymphoma: Status: Acute Assessment and plan: Advanced and s/p first infusion of Polatuzumab. + leukopenia with ANC of 950 > 2300 + thrombocytopenia with platelets of 56 > 69 Hgb 8.8 > 8.4 > 9.6 Monitor CBC and for signs of infection, bleeding. (3) Lumbar compression fracture: Status: Acute Assessment and plan: Had increased her MS Contin to TID and was started on BAclofen. Excessive somnolence though she is appreciative of the increased sleep. Step MS Contin back to BID. PRN fentanyl Baclofen 10mg tonight and then monitor for any further doses. PT was not able to work with him d/t her somnolence. PT tomorrow with likely d/c. Subjective Subjective Patient reports: tolerating a regular diet and afebrile; denies nausea, vomiting and shortness of breath Interval history since last seen: Pt endorses sleeping well. Slept through the night until 10AM Back pain improved while lying still. Present with movement but less intense. Exam Const General: cooperative and no acute distress Nutritional Appearance: obese Orientation: alert and oriented x3 HENMT Head: normocephalic and atraumatic Resp Effort & Inspection: normal respiratory effort Auscultation: clear to auscultation bilaterally Cardio Rate: regular rate Rhythm: regular rhythm Heart Sounds: S1 normal and S2 normal GI Palpation: soft and nontender Back/Spine/Pelvis Back: back tenderness (Tight paraspinus lumbr musculature; NT ) Neuro General: moves all extremities Cognition: normal cognition Speech: speech normal Extrem General: no pedal edema and no calf tenderness Objective Last Vital Signs Temp 36.0 C L 05/15/21 10:14 Pulse 125 H 05/15/21 10:14 Resp 18 05/15/21 10:14 BP 99/62 L 05/15/21 10:14 Pulse Ox 96 05/15/21 10:14 Laboratory Results - last 24 hr 05/15/21 05/15/21 06:55 06:55 WBC 2.77 L D RBC 2.91 L Hgb 9.6 L Hct 28.5 L MCV 97.9 H MCH 33.0 MCHC 33.7 RDW 21.3 H Plt Count 69 L MPV 11.1 H Immature Gran % 0.0 Neutrophils % 83.0 Lymphocytes % 7.0 Monocytes % 10.0 Eosinophils % 0.0 Basophils % 0.0 Nucleated RBC % 0 Absolute Neutrophils 2.30 Absolute Lymphocytes 0.19 L Absolute Monocytes 0.28 Absolute Eosinophils 0.00 Absolute Basophils 0.00 RBC Morphology See Below Basophilic Stippling Present Anisocytosis 2+ Microcytosis 1+ Macrocytosis 1+ Magnesium 1.8 Lactate Dehydrogenase 1578 H
[2021-05-15 16:14] VITALS: BP 102/60; PULSE 109; RESP 16; TEMP 36.8; O2SAT 95
[2021-05-15 20:38] VITALS: BP 95/64; PULSE 101; RESP 14; TEMP 35.6; O2SAT 92
[2021-05-15] MEDS: Lidocaine Patch Removal 2 EACH TP (20:40)
[2021-05-15] MEDS: Baclofen 10 MG TAB PO (22:27)
[2021-05-16] VITALS (10 sets, daily range): BP systolic 92–101; BP diastolic 58–79; PULSE 83–108; RESP 14–18; TEMP 36–36.8; O2SAT 89–95
[2021-05-16] MEDS: Allopurinol 300 MG TAB PO (08:03)
[2021-05-16] MEDS: Acyclovir 400 MG TAB PO (08:04)
[2021-05-16] MEDS: Omeprazole 20 MG CAPCR 40 MG PO (08:04)
[2021-05-16] MEDS: metFORMIN 500 MG TAB PO (08:05)
[2021-05-16] MEDS: Loratidine 10 MG TAB PO (08:05)
[2021-05-16] MEDS: Dexamethasone 4 MG TAB PO (08:05)
[2021-05-16] MEDS: Apixaban 5 MG TAB PO (08:05)
[2021-05-16] MEDS: Sertraline 50 MG TAB PO (08:05)
--- NOTE | 2021-05-16 08:52 | PDOC.CMPRO ---
- If Service Date Differs Date of service: 05/16/21 Time of Service: 08:52 Care Management Progress Note S/O: A: Radha is a 51 year old woman admitted on 05/14/21 with lymphoma P:Anticipate Radha will discharge home with no new services when medically cleared by MD. She will transport via private vehicle with her mother and follow up with community providers.CM will continue to support Radha and her discharge needs.
--- NOTE | 2021-05-16 09:45 | PT.INIE ---
Date of service: 05/16/21 Time of Service: 09:45 PT Notes Visit Reasons: acute on chronic pain, LI compression fx lymphoma Physical Therapy Inpatient Initial Evaluation Date: 05/16/2021 Referring Doctor: Gerard Lucio MD PT Orders: PT CONSULT: Eval/treat Precautions: Fall. Standard. Activity as tolerated. Patient Profile/Admitting Diagnosis: Radha is a 51-year-old female who presented to the ED on 05/14/2021 with chief complaints of diffuse pain in the low back area with decreased ability to move and ambulate. Patient is diagnosed with lumbar compression fracture with superior endplate fracture of L1 and small sclerotic lesions on T7 posterior inferior and L3 vertebral bodies, type 2 diabetes mellitus, and follicular lymphoma. PMHX: Medical History Anxiety Diabetes Follicular lymphoma Fracture of middle phalanx of right middle finger (~02/01/20) Myelodysplastic syndrome Neutropenic fever Non-Hodgkin lymphoma Thrombocytopenia Type 2 diabetes mellitus Surgical History H/O autologous stem cell transplant Hx of biopsy Hx of cholecystectomy Hx of dilation and curettage Social History/Home Situation: Lives with mother in a private home with 3 steps to enter with both rails. Mother is the primary caregiver. Has a friend who has come back and will be able to help her mother take care of her as needed. Independent without an assistive device prior to admission. Needs to be able to negotiate 50 feet to reach all frequented areas of her house. Equipment Owned/DME: None Subjective: Agreeable to PT consult. States that 3 weeks ago her hand has been 3 times the size as it is right now. Reports of pain in the low back at 3?4/5 with weight bearing and in th3 R UE 3/10 due to recent pathologic fracture. Verbalizes that she has dealt with pain because her cancer for a long time now. Objective: General Observation: Seated at edge of bed. IV access in left UE. Nonpitting edema on the right UE. Mental Status: Alert and oriented as to person, place, time, and purpose. Able to pay attention, focus, and respond appropriately. Pain: 3?4/10 in low back Vital Signs: Oxygen saturation with ambulation from edge of bed to bedside recliner went down to 86% on room air and down to 87% with ambulation about 30 feet using the front wheeled walker still on room air. ROM: Right Upper Extremity: Shoulder Flexion allows up to 80 degrees. Shoulder abduction allows up to 60 degrees. Elbow flexion WFL. Wrist flexion WFL. Functional opening and closing of hand WFL. Left Upper Extremity: Shoulder Flexion WFL. Shoulder abduction WFL. Elbow flexion WFL. Wrist flexion WFL. Functional opening and closing of hand WFL. Right Lower Extremity: Hip flexion WFL. Hip abduction WFL. Knee flexion WFL. Ankle dorsiflexion WFL. Ankle plantarflexion WFL. Left Lower Extremity: Hip flexion WFL. Hip abduction WFL. Knee flexion WFL. Ankle dorsiflexion WFL. Ankle plantarflexion WFL. Strength: Right Upper Extremity: Shoulder flexors 3-/5. Shoulder abductors 3-/5. Elbow flexors 4-/5. Elbow extensors 4-/5. Advanced Practice Registered Nurse weaker than left side but is functional Left Upper Extremity: Shoulder flexors 4/5. Shoulder abductors 4/5. Elbow flexors 4/5. Elbow extensors 4/5. Advanced Practice Registered Nurse strong. Right Lower Extremity: Hip flexors 4/5. Hip abductors 4/5. Knee flexors 4/5. Knee extensors 4/5. Ankle dorsiflexors 4/5. Ankle plantarflexors 4/5. Left Lower Extremity: Hip flexors 4/5. Hip abductors 4/5. Knee flexors 4/5. Knee extensors 4/5. Ankle dorsiflexors 4/5. Ankle plantarflexors 4/5. Bed Mobility/Transfers: Rolling to left independent Supine to sit independent Sit to supine independent Sit to stand supervision using front wheeled walker Stand to sit supervision using front wheel walker Bed to bedside commode standby assist using front wheeled walker Bedside commode to bed standby assist using front wheel walker Bed to reclining chair standby assist using front wheel walker Reclining chair to bed standby assist using front wheel walker Gait: Instructed patient with level surface ambulation of 80 feet feet plus 50 feet requiring standby assist. Cait decreased. Oxygen desaturation to 86 to 87% on room air requiring increase of oxygen supplementation to 1 L/min with resultant increase in oxygen saturation to 92%. Balance: Static Sitting: Normal Dynamic Sitting: Normal Static Standing: Fair Dynamic Standing: Fair Special Tests: Mobility Limitations Standardized Measure [facility] AM-PAC 6 clicks Basic Mobility Inpatient Short Form: Raw Score: 23 CMS Score: 11% deficit Informed Consent/Education: Patient was instructed in purpose of PT consult and plan of care. Agreeable to proceed with established PT POC to achieve personal goals. Assessment: Radha will require the use of a front wheeled walker for all mobility ADL performance to offload pain in low back during ambulation activity and weight bearing while reducing fall risk and maximize independence at home. Radha will also benefit from the use of a bedside commode for nighttime toileting to maximize safety. Patient will benefit from home health PT services in order to progress mobility level using least restrictive assistive ambulatory device, assess home safety, identify additional equipment needs, and establish a functional maintenance program that will increase ability of patient to remain at home. R UE may continue to be elevated to minimizme swelling, lymphedema therapy done once clearance from oncologist is given. Patient presents with clinical signs and symptoms consistent with current/admitting diagnoses that have resulted to mobility limitations, gait instability, generalized weakness, and overall ADL decline as demonstrated by the following impairment level findings: 1. Decreased strength to right UE and B LE major muscle groups 2. Impaired sitting/standing balance due to low back pain 3. Impaired activity tolerance 4. Limitation of joint range of motion in right shoulder 5. Shortness of breath 6. pain in R UE Impairments are contributing to the following functional limitations: 1. Difficulty with ambulation without assistive device and physical assistance 2. Increased completion time for mobility ADL performance 3. Increased risk for falls 4. Difficulty with managing steps alone safely Patient is assessed as a 48638 moderate complexity based on the following: History: 51-year-old female with past medical history as indicated above Examination: Demonstrable impairment in strength, balance, and mobility level with underlying impairments and functional limitations as exhibited above as well as deficit score of 11% utilizing the [facility] Mobility Inpatient Short Form Presentation: Evolving Decision Makin moderate complexity Goals: Goals X1 week 1. Sit-Stand independent 2. Stand-Sit independent with FWW 3. Bed-Chair independent with FWW 4. Chair-Bed independent with FWW 5. Independent gait on level surface with use of FWW for at least 75 feet without report of pain nor dyspnea 6. Independent stair negotiation while holding onto B rails for at least 3 steps without report of pain nor dyspnea 7. Independent with home exercise program 8. Good static and dynamic standing balance/tolerance Plan of Care/Treatment Plan: 1-2x/day, 7 days/week x 1 week. Plan of care has been reviewed with the SAFETY DEPOSIT SUPERVISOR providing the service under Physical Therapy direction. Initiate Physical Therapy intervention for pain management as needed, strengthening, bed mobility, transfers, gait, stairs, balance training, and use of assistive device. DISCHARGE RECOMMENDATIONS: Patient will benefit from home health PT services in order to progress mobility level using least restrictive assistive ambulatory device, assess home safety, identify additional equipment needs, and establish a functional maintenance program that will increase ability of patient to remain at home. Will benefit from the following DME to reduce fall risk and manage pain at home: FWW, bedside commode. TREATMENT CODE/TIME: 26515 x 20 minutes, 55469 x 25 minutes beginning 9:45 AM. Thank you for the opportunity to participate in the care of this patient. Kathleen Leyva PT, DPT, CLT [facility] [place], [place]
--- NOTE | 2021-05-16 10:42 | W.PM.DS.N ---
Date of service: 05/16/21 Time of Service: 10:43 DS: Diagnosis Discharge Diagnosis (1) Type 2 diabetes mellitus: Status: Acute (2) Follicular lymphoma: Status: Acute (3) Lumbar compression fracture: Status: Acute Discharge Plan Disposition Patient Disposition: HOME Condition: Poor Discharge Details Reason For Visit: acute on chronic pain, LI compression fx lymphoma Admit Date/Time: 05/14/21 11:23 Admit Provider: Gerard Lucio Attending Provider: Gerard Lucio Primary Care Provider: David West Hospital Course Hospital Course: This is a 51 yo femal with a PMH of Non-Hodgkins small cell follicular lymphoma, Large B cell lymphoma, MDS that presented to the ED with stabbing lumbar region back pain. She has chronic diffuse joint/back pain secondary to her cancer and has spent 6 weeks recently at [facility], discharged appx 2 weeks ago, then re-admitted. She was found to have rapidly progressive lymphoma and she was recently started on a new chemotx medication Polatuzumab. During the recent hospitalization she was noted to have a pathologic fracture in the R shoulder. ED physician spoke with [facility] oncology and they suggested increasing her MS Contin 60mg to TID. IV fentanyl given in the ED with good results. She denies abd pain/constipation, dysuria/frequency, F/C. Admitted for pain management. Initially her MS Contin was increased from BID to TID and baclofen 10mg po TID and lidoderm patches to the lumbar region were initiated. She slept very well that night but was very lethargic the entire next day. Her back and shoulder pain did improve. Because of the excessive somnolence the MS Contin was changed back to BID. Baclofen 10mg only at night recommended. She was seen by PT. She became more mobile. Her hgb did decrease to 7.4 and a unit of RBCs transfused. She has a second dose of the polatuzumab scheduled for 06/01. F/U with oncology as per their recommendations. Home Meds and New Rx's Prescriptions: New baclofen 10 mg Tablet 10 mg PO HS Qty: 15 RF: 0 Continued dexamethasone 4 mg tablet 4 mg PO DAILY RF: 0 Eliquis 5 mg tablet 5 mg PO BID RF: 0 omeprazole 40 mg capsule,delayed release(DR/EC) 40 mg PO DAILY RF: 0 metformin 500 mg tablet 500 mg PO BID RF: 0 acyclovir 400 mg Tablet 400 mg PO BID RF: 0 sertraline 50 mg Tablet 50 mg PO DAILY RF: 0 loratadine [Claritin] 10 mg Tablet 10 mg PO DAILY RF: 0 morphine 30 mg tablet extended release 60 mg PO BID RF: 0 lorazepam [Ativan] 0.5 mg tablet 0.5 mg PO TID PRNRF: 0 allopurinol 300 mg tablet 300 mg PO DAILY RF: 0 ergocalciferol (vitamin D2) 1,250 mcg (50,000 unit) capsule 50,000 unit PO QWEEK RF: 0 morphine 15 mg Tablet 15 mg PO Q4H PRNRF: 0 lactulose 10 gram/15 mL solution 30 g PO DAILY PRNRF: 0 diclofenac sodium 1 % gel 1 applic TOPICAL DIRECTED PRNRF: 0 ondansetron HCl 4 mg tablet 8 mg PO PRN PRNRF: 0 Discharge Instructions Instructions: Vertebral Compression Fracture (DC) Stand Alone Forms: Nursing Discharge Form Referrals: David West [Primary Care Provider] - 06/06/21 10:30 am Activity:: Activity as Tolerated Equipment/Supplies:: No Equipment Needed Diet:: resume usual diet Discharge Orders Discharge Orders: Discharge Order (Routine); Ordered 05/16/21 Ordered By: Gerard Lucio DS: Summary Time Spent with Patient providing and/or coordinating discharge services: Greater than 30 minutes Status at Discharge Functional status at discharge: uses cane/walker (Previously independent.) Overall status at discharge: patient is progressing back to baseline Mental Status: mental status grossly normal Speech and Movement: speech clear Mood: congruent mood Affect: normal affect Exam Narrative Exam Narrative: Pt with improved mobility today. Walked independently to commode and back to bed. Still has lumbar area pain but much improved. Slept well once she found a comfortable position for her back and R shoulder. R shoulder mobility and pain also improving. Const General: cooperative and no acute distress Nutritional Appearance: obese Orientation: alert and oriented x3 HENMT Head: normocephalic and atraumatic Resp Effort & Inspection: normal respiratory effort Auscultation: clear to auscultation bilaterally Cardio Rate: regular rate Rhythm: regular rhythm Heart Sounds: S1 normal and S2 normal GI Palpation: soft and nontender Back/Spine/Pelvis Back: back tenderness (Tight paraspinus lumbr musculature; NT ) Neuro General: moves all extremities Cognition: normal cognition Speech: speech normal Extrem General: no pedal edema and no calf tenderness Psych Mental Status: mental status grossly normal Speech and Movement: speech clear Mood: congruent mood Affect: normal affect DS: Data Vitals/I&O Vitals and I&O: Vital Signs Temperature 36.8 C 05/16/21 08:08 Temperature Source Tympanic 05/16/21 08:08 Pulse 102 H 05/16/21 08:08 Pulse Rhythm Regular 05/16/21 02:50 Pulse 111 H 05/14/21 13:10 Respiratory Rate 17 05/16/21 08:08 Respiratory Effort Non-Labored 05/16/21 02:50 Respiratory Depth Normal 05/16/21 02:50 Respiratory Pattern Normal 05/16/21 02:50 Blood Pressure 93/60 L 05/16/21 08:08 Blood Pressure Mean 74 05/14/21 13:01 Blood Pressure Position Sitting 05/14/21 08:16 Pulse Oximetry 95 05/16/21 08:08 Oxygen Delivery Method Nasal Cannula 05/16/21 08:08 Oxygen Flow Rate 1 05/16/21 08:08 Pain Level 1 05/16/21 02:46 Comment 05/14/21 21:22 Intake & Output 05/15/21 05/15/21 05/16/21 11:59 23:59 11:59 Intake Total 950 / 2430 1480 / 2430 Output Total 350 / 900 550 / 900 Balance 600 / 1530 930 / 1530 Intake: IV 500 / 1500 1000 / 1500 Oral 450 / 930 480 / 930 Output: Urine 350 / 900 550 / 900 Other: Urine Color Dark Shalonda Straw Urine Appearance Clear Clear Clear Urine Odor Normal Stool Size Small Stool Characteristics Soft Liquid Voiding Methods Bedside Commode Bedside Commode Data Completed and Pending Labs on day of discharge: Labs from last 24 hours 05/16/21 05/16/21 09:05 09:05 WBC Pending RBC Pending Hgb Pending Hct Pending MCV Pending MCH Pending MCHC Pending RDW Pending Plt Count Pending MPV Pending Immature Gran % Pending Neutrophils % Pending Lymphocytes % Pending Monocytes % Pending Eosinophils % Pending Basophils % Pending Absolute Neutrophils Pending Absolute Lymphocytes Pending Absolute Monocytes Pending Absolute Eosinophils Pending Absolute Basophils Pending Sodium Pending Potassium Pending Chloride Pending Carbon Dioxide Pending Anion Gap Pending BUN Pending Creatinine Pending Estimated GFR/1.73 m2 Pending Glucose Pending Uric Acid Pending Calcium Pending Total Bilirubin Pending AST Pending ALT Pending Alkaline Phosphatase Pending Total Protein Pending Albumin Pending [facility] Medical History Anxiety Diabetes Follicular lymphoma Fracture of middle phalanx of right middle finger (~02/01/20) Myelodysplastic syndrome Neutropenic fever Non-Hodgkin lymphoma Thrombocytopenia Type 2 diabetes mellitus Surgical History H/O autologous stem cell transplant Hx of biopsy Hx of cholecystectomy Hx of dilation and curettage Family History Mother Breast cancer Father Cancer pancreatic Brother Psoriasis Psoriatic arthritis Maternal Grandfather Breast cancer Other Diabetes Social History Smoking/Tobacco Use Status: Former Tobacco Use Smoking risk assessment performed?: Yes Alcohol Intake: never Drug use: Occasionally Substance use type: marijuana Details: edibles Household members: significant other 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
[2021-05-16] MEDS: Lidocaine 5% Patch 2 PATCH TP (10:46)
[2021-05-16 11:40] LABS: MCH 33.9 pg (27.0-33.0); MCHC 34.7 % (32.0-36.0); MCV 97.7 fL (80-95); MPV 12.7 fL (8.0-11.0); Nucleated RBC 0 %; Platelet Count 47 10^3/uL (130-400); RBC 2.18 10^6/uL (3.93-5.22); RDW-SD 72.3 fL
[2021-05-16 11:45] LABS: HCT 21.3 % (36.0-46.0); HGB 7.4 g/dL (11.2-15.7)
[2021-05-16 11:56] LABS: ALT 16 U/L (14-59); AST 75 U/L (15-37); Albumin 2.7 g/dL (3.4-5.0); Alkaline Phosphatase 185 U/L (46-116); Anion Gap 6.3 mmol/L (3-11); BUN 27 mg/dL (7-18); Bilirubin, Total 0.7 mg/dL (0.2-1.0); CO2 26.7 mmol/L (21.0-32.0); CREATININE 0.7 mg/dL (0.55-1.02); Calcium 10.4 mg/dL (8.5-10.1); Chloride 103 mmol/L (98-107); Glucose 221 mg/dL (74-106); Potassium 4.4 mmol/L (3.5-5.1); Sodium 136 mmol/L (136-145); Total Protein 5.3 g/dL (6.4-8.2); Uric Acid 4.3 mg/dL (2.6-6.0)
[2021-05-16 12:05] LABS: Absolute Lymphocyte Count 0.17 10^3/uL (1.2-3.4); Absolute Monocyte Count 0.02 10^3/uL (0.1-0.8); Absolute Neutrophil Count 1.71 10^3/uL (1.2-6.7); Anisocytosis 2+; Bands % 1; Basophilic Stippling Present; Diff Comment Manual Differential; Polychromasia Present
--- NOTE | 2021-05-16 15:40 | PT.INTREAT ---
Date of service: 05/16/21 Time of Service: 13:23 PT Notes Visit Reasons: acute on chronic pain, LI compression fx lymphoma Inpatient Physical Therapy Treatment Note [facility] Date: 05/16/2021 PRECAUTIONS: Activity as tolerated SUBJECTIVE: Radha is pleasant and agreeable to participating in PT. She reports that she plans to go home this afternoon after receiving a blood transfusion. OBJECTIVE: Issued FWW to patient for personal at home use, [employer] form completed and submitted to care management. PAIN: Patient complained of right UE discomfort with movement BED MOBILITY/TRANSFERS Sit-stand: S Stand-sit: S GAIT Assistive Device: FWW Weight bearing: Full Assist: SBA Distance: 60' x2 Deviation: Minimal SOB, stand rest x2, 1L O2 via NC STAIRS: Up/down 3x4 and 4x6 using B rails and a step to pattern independently ASSESSMENT: Patient tolerated session with complaint of minimal SOB with gait training requiring standing rest x2. She was able to to negotiate therapeutic stairs independently using B rails. She would benefit from continued general conditioning and global strengthening for improved activity tolerance. PLAN: Patient to discharge home later today, per MD. Follow-up with home health PT. TREATMENT CODE/TIME: 35 minutes; 86660 x2 (13:23)
--- NOTE | 2021-05-16 18:41 | PDOC.CMDIS ---
- If Service Date Differs Date of service: 05/16/21 Time of Service: 18:41 LACE Index Scoring Tool - Questions: Length of Stay (in days): 2 Acuity (Admit via E.D.?): Yes Comorbidities: Diabetes w/o Complication, Metastatic Solid Tumor E.D. Visits: 6 - Answers: Total Score: 14 Risk of Readmission: High Risk Care Management Discharge Reason for Hospitalization: Follicular Lymphoma, Lumbar compression fracture Discharge Plan: Radha will discharged home with no new services . She has been provided with a wheelchair by PT and will purchase a commode later today. She will transport via private vehicle with her mother and follow up with community providers. Patient/Family Education Needs: Review discharge instructions, limitations and plan to follow up with community providers. ask me three.
--- NOTE | 2021-05-17 13:33 | NUR.NOTE ---
Nursing Note: At 1700 on 05/16/21, this RN entered the pt.'s room to assist the primary RN with IV removal, and upon entering the pt.'s room, this RN noted that the blood transfusion that was transfusing earlier was finished, and that empty blood tubing was hanging off the IV pole.
--- NOTE | 2021-05-17 14:20 | NUR.NOTE ---
Nursing Note: 1420: noted that pt's TAR was not ended by administrating RNTootie. this scribe hung blood with RN.
--- NOTE | 2021-05-18 15:00 | INDS_ITS ---
Date of service: 05/18/21 Time of Service: 15:00 PT Notes Visit Reasons: Acute on Chronic Pain,LI Compression FX,Lymphoma Physical Therapy Inpatient Discharge Summary Date: 05/18/2021 Dates of service: 05/16/2021 only This is a clinical summary of care provided for the duration of dates listed above. No charge was made in the completion of this documentation. Referring Doctor: Gerard Lucio MD PT Orders: PT CONSULT: Eval/treat Precautions: Fall. Standard. Activity as tolerated. Patient Profile/Admitting Diagnosis: Radha is a 51-year-old female who presented to the ED on 05/14/2021 with chief complaints of diffuse pain in the low back area with decreased ability to move and ambulate. Patient is diagnosed with lumbar compression fracture with superior endplate fracture of L1 and small sclerotic lesions on T7 posterior inferior and L3 vertebral bodies, type 2 diabetes mellitus, and follicular lymphoma. PMHX: Medical History Anxiety Diabetes Follicular lymphoma Fracture of middle phalanx of right middle finger (~02/01/20) Myelodysplastic syndrome Neutropenic fever Non-Hodgkin lymphoma Thrombocytopenia Type 2 diabetes mellitus Surgical History H/O autologous stem cell transplant Hx of biopsy Hx of cholecystectomy Hx of dilation and curettage Social History/Home Situation: Lives with mother in a private home with 3 steps to enter with both rails. Mother is the primary caregiver. Has a friend who has come back and will be able to help her mother take care of her as needed. Independent without an assistive device prior to admission. Needs to be able to negotiate 50 feet to reach all frequented areas of her house. Equipment Owned/DME: None Subjective: NT. See most recent PIN INSERTER REGULATOR notes. Objective: General Observation: NT. See most recent PIN INSERTER REGULATOR notes. Mental Status: NT. See most recent PIN INSERTER REGULATOR notes. Pain: NT. See most recent PIN INSERTER REGULATOR notes. Vital Signs: NT. See most recent PIN INSERTER REGULATOR notes. ROM: Right Upper Extremity: Shoulder Flexion allows up to 80 degrees. Shoulder abduction allows up to 60 degrees. Elbow flexion WFL. Wrist flexion WFL. Functional opening and closing of hand WFL. Left Upper Extremity: Shoulder Flexion WFL. Shoulder abduction WFL. Elbow flexion WFL. Wrist flexion WFL. Functional opening and closing of hand WFL. Right Lower Extremity: Hip flexion WFL. Hip abduction WFL. Knee flexion WFL. An kle dorsiflexion WFL. Ankle plantarflexion WFL. Left Lower Extremity: Hip flexion WFL. Hip abduction WFL. Knee flexion WFL. Ankle dorsiflexion WFL. Ankle plantarflexion WFL. Strength: Right Upper Extremity: Shoulder flexors 3-/5. Shoulder abductors 3-/5. Elbow flexors 4-/5. Elbow extensors 4-/5. Guard Captain weaker than left side but is functional Left Upper Extremity: Shoulder flexors 4/5. Shoulder abductors 4/5. Elbow flexors 4/5. Elbow extensors 4/5. Guard Captain strong. Right Lower Extremity: Hip flexors 4/5. Hip abductors 4/5. Knee flexors 4/5. Knee extensors 4/5. Ankle dorsiflexors 4/5. Ankle plantarflexors 4/5. Left Lower Extremity: Hip flexors 4/5. Hip abductors 4/5. Knee flexors 4/5. Knee extensors 4/5. Ankle dorsiflexors 4/5. Ankle plantarflexors 4/5. Bed Mobility/Transfers: Rolling to left independent Supine to sit independent Sit to supine independent Sit to stand supervision using front wheeled walker Stand to sit supervision using front wheel walker Bed to bedside commode supervision using front wheeled walker Bedside commode to bed supervision using front wheel walker Bed to reclining chair supervisionusing front wheel walker Reclining chair to bed supervision using front wheel walker Gait: Instructed patient with level surface ambulation of 60 feet x 2 requiring standby assist. Cait decreased. Oxygen desaturation to 86 to 87% on room air requiring increase of oxygen supplementation to 1 L/min with resultant increase in oxygen saturation to 92%. Balance: Static Sitting: Normal Dynamic Sitting: Normal Static Standing: Fair Dynamic Standing: Fair Assessment: Radha will require the use of a front wheeled walker for all mobility ADL performance to offload pain in low back during ambulation activity and weight bearing while reducing fall risk and maximize independence at home. Radha will also benefit from the use of a bedside commode for nighttime toileting to maximize safety. Patient will benefit from home health PT services in order to progress mobility level using least restrictive assistive ambulatory device, assess home safety, identify additional equipment needs, and establish a functional maintenance program that will increase ability of patient to remain at home. R UE may continue to be elevated to minimize swelling, lymphedema therapy to be done once clearance from oncologist is given. Patient presents with clinical signs and symptoms consistent with current/admitting diagnoses that have resulted to mobility limitations, gait instability, generalized weakness, and overall ADL decline as demonstrated by the following impairment level findings: 1. Decreased strength to right UE and B LE major muscle groups 2. Impaired sitting/standing balance due to low back pain 3. Impaired activity tolerance 4. Limitation of joint range of motion in right shoulder 5. Shortness of breath 6. pain in R UE Impairments are contributing to the following functional limitations: 1. Difficulty with ambulation without assistive device and physical assistance 2. Increased completion time for mobility ADL performance 3. Increased risk for falls 4. Difficulty with managing steps alone safely Goals: Goals X1 week 1. Sit-Stand independent NOT MET 2. Stand-Sit independent with FWW NOT MET 3. Bed-Chair independent with FWW NOT MET 4. Chair-Bed independent with FWW NOT MET 5. Independent gait on level surface with use of FWW for at least 75 feet without report of pain nor dyspnea NOT MET 6. Independent stair negotiation while holding onto B rails for at least 3 steps without report of pain nor dyspnea NOT MET 7. Independent with home exercise program NOT MET 8. Good static and dynamic standing balance/tolerance NOT MET DISCHARGE RECOMMENDATIONS: Patient will benefit from home health PT services in order to progress mobility level using least restrictive assistive ambulatory device, assess home safety, identify additional equipment needs, and establish a functional maintenance program that will increase ability of patient to remain at home. Will benefit from the following DME to reduce fall risk and manage pain at home: FWW, bedside commode. TREATMENT CODE/TIME: [place] Thank you for the opportunity to participate in the care of this patient. Kathleen Leyva PT, DPT, CLT [facility] [place], [place]
== END 2021-05-16 17:26 | disposition home or self-care (01) | DRG 948 ==
LOC: ER 11:39 → MS 12:53
PROVIDERS: Admitting Provider Family Medicine; Emergency Provider Physician Assistant; PCP Physician Assistant; Visit Provider Family Medicine
DX: G89.3 Neoplasm related pain (acute) (chronic) (principal); C83.30 Diffuse large B-cell lymphoma, unspecified site; M48.56XA Collapsed vertebra, not elsewhere classified, lumbar region, initial encounter for fracture; C79.51 Secondary malignant neoplasm of bone; C78.02 Secondary malignant neoplasm of left lung; D69.6 Thrombocytopenia, unspecified; E11.9 Type 2 diabetes mellitus without complications; F41.9 Anxiety disorder, unspecified; D46.9 Myelodysplastic syndrome, unspecified; Z87.891 Personal history of nicotine dependence; M54.5 Low back pain; E66.9 Obesity, unspecified; Z68.38 Body mass index [BMI] 38.0-38.9, adult; Z20.822 Contact with and (suspected) exposure to COVID-19
CPT/HCPCS: 36415; 80053; 85027; 86850; 86900; 86901; 86920; 86945; 87635; 96361; 96374; 96375; 96376; 97110; 97162; 99285; 72128; 72131; 83615; 83735; 84550; 85025; 86644; 99223; 99232; 99239; J3010; J3490; J8540; P9016

== ENCOUNTER 2021-05-16 02:42 | Outpatient (RCR) | payer MEDICAID, SELFPAY ==
[2021-04-20 00:10] VITALS: BP 114/78; PULSE 87; RESP 16; TEMP 36.7
[2021-05-12 09:55] LABS: ALT 23 U/L (14-59); AST 63 U/L (15-37); Albumin 3.3 g/dL (3.4-5.0); Alkaline Phosphatase 105 U/L (46-116); Anion Gap 11.8 mmol/L (3-11); BUN 14 mg/dL (7-18); Bilirubin, Total 1.2 mg/dL (0.2-1.0); CO2 26.2 mmol/L (21.0-32.0); CREATININE 0.8 mg/dL (0.55-1.02); Calcium 9.7 mg/dL (8.5-10.1); Chloride 103 mmol/L (98-107); Glucose 118 mg/dL (74-106); Potassium 3.4 mmol/L (3.5-5.1); Sodium 141 mmol/L (136-145); Total Protein 5.5 g/dL (6.4-8.2)
[2021-05-12 10:33] LABS: LDH 1423 U/L (81-234)
[2021-05-12] MEDS: Normal Saline Flush 10 ML SYR IVP (13:05)
[2021-05-12] MEDS: Heparin 500 UNITS/5 ML SYRINGE IVP (13:06)
[2021-05-12 16:13] LABS: Magnesium 1.8 mg/dL (1.8-2.4); PHOSPHORUS 3.8 mg/dL (2.6-4.7)
[2021-05-13] MEDS: Normal Saline Flush 10 ML SYR IVP (11:41)
[2021-05-13 11:54] LABS: Absolute Eosinophil Count 0.03 10^3/uL (0.0-0.7); HGB 8.8 g/dL (11.2-15.7); MCHC 33.8 % (32.0-36.0); MCV 97.4 fL (80-95); MPV 10.8 fL (8.0-11.0); Nucleated RBC 0 %; Platelet Count 59 10^3/uL (130-400); RBC 2.67 10^6/uL (3.93-5.22); RDW 21.1 % (11.7-14.6); RDW-SD 72.2 fL
[2021-05-13 11:57] LABS: WBC 1.42 10^3/uL (4.4-10.8)
[2021-05-13 12:10] LABS: Absolute Lymphocyte Count 0.34 10^3/uL (1.2-3.4); Absolute Monocyte Count 0.09 10^3/uL (0.1-0.8); Absolute Neutrophil Count 0.97 10^3/uL (1.2-6.7); Bands % 1
[2021-05-13 12:11] LABS: Anisocytosis 2+; Diff Comment Manual Differential; Macrocytosis 1+
== END 2021-05-19 23:59 | disposition home or self-care (01) ==
LOC: INF 02:42
PROVIDERS: PCP Physician Assistant; Visit Provider Internal Medicine Hematology & Oncology
DX: C82.98 Follicular lymphoma, unspecified, lymph nodes of multiple sites (principal); D46.9 Myelodysplastic syndrome, unspecified; Z45.2 Encounter for adjustment and management of vascular access device
CPT/HCPCS: 36591; 80053; 86900; 86901; 83615; 83735; 84100; 84550; 85025